=== PATIENT | male | born 1950 | race African-American/Black ===

== ENCOUNTER 2018-06-21 11:54 | Inpatient (IN) ==
[2018-06-21] MEDS ORDERED: DILAUDID IV ONE (14:27)
[2018-06-21 15:10] LABS: BASO# 0.02 X1000 (0.0-0.2); BASO% 0.2 % (0.0-0.8); EOS% 0.8 % (0.0-10.0); HEMATOCRIT 32.6 % (42.0-52.0); HEMOGLOBIN 10.2 g/dL (14.0-18.0); IMM GRAN# 0.07 X1000 (0.0-0.04); IMM GRAN% 0.6 % (0.0-0.5); LYMPH# 0.69 X1000 (1.2-3.4); LYMPH% 5.6 % (20.5-51.1); MCH 22.8 PG (27-31); MCHC 31.3 g/dL (33-37); MCV 72.8 FL (81-99); MONO# 1.31 X1000 (0.11-0.59); MONO% 10.6 % (1.7-9.3); MPV 8.4 FL (7.4-10.4); NEUT# 10.15 X1000 (1.4-6.5); NEUT% 82.2 % (42.2-75.2); PLT 429 X1000 (130-400); RBC 4.48 XMIL (4.7-6.1); WBC 12.34 X1000 (4.8-10.8)
[2018-06-21 15:40] LABS: ALB/GLOB RATIO 0.8; ALBUMIN 3.4 g/dL (3.5-5.0); CALCIUM 9.1 mg/dL (8.8-10.2); CREATININE 1.9 mg/dL (0.7-1.2); TOTAL BILIRUBIN 0.36 mg/dL (0.20-1.00); TOTAL PROTEIN 7.8 g/dL (6.3-8.3)
[2018-06-21 15:43] LABS: POTASSIUM 6.8 mmol/L (3.5-5.1)
[2018-06-21 15:56] LABS: URINE SOURCE CLEAN CATCH
[2018-06-21] MEDS ORDERED: CALCIUM CHLORIDE 1 GM in NS 100 ML IV ONE (16:10)
[2018-06-21] MEDS ORDERED: D50W SYRINGE IV ONE ×2 (16:11→16:45)
[2018-06-21] MEDS ORDERED: SODIUM BICARBONATE 8.4% IV ONE (16:11)
[2018-06-21 16:12] LABS: BILIRUBIN URINE NEGATIVE (NEGATIVE); BLOOD URINE MODERATE (NEGATIVE); COLOR ORANGE; GLUCOSE URINE NEGATIVE (NEGATIVE); KETONE URINE NEGATIVE (NEGATIVE); LEUKOCYTES URINE LARGE (NEGATIVE); NITRITE URINE NEGATIVE (NEGATIVE); PROTEIN URINE 300 mg/dL (NEGATIVE); TURBIDITY URINE TURBID (CLEAR); UROBILINOGEN URINE NORMAL (NORMAL)
[2018-06-21] MEDS ORDERED: HUMULIN R IV ONE (16:12)
[2018-06-21 16:20] LABS: URINE BACTERIA 4+ /HPF; URINE RBC TNTC /HPF (<10); URINE WBC TNTC /HPF (<10)
[2018-06-21 16:25] LABS: UR EPITHELIAL CELLS <10 /HPF (<10)
[2018-06-21 16:29] LABS: URINE CASTS NONE SEEN; URINE CRYSTALS NONE SEEN; URINE YEAST NONE SEEN
--- NOTE | 2018-06-21 17:04 | Diag Imaging Result Doc PS360 ---
EXAM: CHEST-1 VIEW HISTORY: sepsis protocol TECHNIQUE: Chest single view COMPARISON: 01/16/2018 FINDINGS: Poor inspiratory effort. The patient is rotated to the right. There is a right portacatheter. No consolidation. No pleural effusions identified. IMPRESSION: Negative exam. Electronically signed by Emmanuel Pak 06/21/2018 5:02 PM
[2018-06-21 17:12] LABS: POTASSIUM 7.2 mmol/L (3.5-5.1)
[2018-06-21 17:20] LABS: INR 1.01; PROTIME 14.1 Seconds (11.0-16.0)
[2018-06-21 17:21] LABS: PTT 39.1 Seconds (22.3-41.8)
[2018-06-21] MEDS ORDERED: MAXIPIME 2 GM in NS 100 ML IV ONE (17:31)
[2018-06-21] MEDS ORDERED: KAYEXALATE PO ONE (17:44)
--- NOTE | 2018-06-21 18:12 | PROVIDER DOCUMENTATION ---
This chart was entered by Lashon Love Scribe, acting as scribe for Ld Pratt MD. HPI-General Adult - General Chief Complaint: Generalized Pain Stated Complaint: ABD PAIN Time Seen by Provider: 06/21/18 13:56 Source: patient, family Allergies/Adverse Reactions: Patient Allergies Allergy/AdvReac Type Severity Reaction Status Date / Time levofloxacin [From Levaquin] Allergy SWELLING Verified 01/16/18 14:06 Home Medications: Home Medication List Medication Instructions Recorded Confirmed Last Taken Type Atorvastatin Calcium [Lipitor] 20 mg PO QHS 02/10/15 01/22/18 09/25/16 20:00 History ENALApril [Vasotec] 10 mg PO DAILY 02/10/15 01/22/18 09/26/16 08:00 History Enzalutamide [Xtandi] 80 mg PO BID 02/10/15 01/22/18 03/05/15 21:00 History Venlafaxine [Effexor] 75 mg PO DAILY 02/10/15 01/22/18 09/26/16 08:00 History Sitagliptin [Januvia] 100 mg PO DAILY 09/26/16 01/22/18 09/26/16 08:00 History Amlodipine Besylate [Norvasc] 5 mg PO DAILY 01/22/18 01/22/18 Unknown History Clonidine [Catapres] 0.2 mg PO BID 01/22/18 01/22/18 Unknown History Gabapentin 300 mg PO BID 01/22/18 01/22/18 Unknown History - History of Present Illness -Gen Adult Nature of Presenting Problems: 68 yobm presents to the ed with c/o pain and weakness in BLE, back, hips and abdomen. pt sts has been unable to ambulate for 1 week. pt has difficulty moving BLE. pt sts movemennt makes pain worse. pt does have prostate cancer with mets Location of Pain/Injury: reports: abdomen, back, lower extremity Quality of Pain: reports: aching Severity: reports: moderate Onset/Duration: reports: 1 week ago Timing: reports: still present, constant Context/Activities at Onset: reports: light activity Modifying Factors: improves with: nothing Associated Symptoms: reports: back/neck pain, joint pain, malaise, weakness, trouble walking. denies: fever/chills, nausea, shortness of breath Similar Symptoms Previously?: Yes Recently seen or treated by another doctor?: Yes Review of Systems - Adult - REVIEW OF SYSTEMS - ADULT Constitutional: denies: chills, fever Eyes: reports: no symptoms reported Ears, Nose, Mouth & Throat: reports: no symptoms reported Cardiovascular: denies: chest pain, palpitations Respiratory: reports: no symptoms reported Gastrointestinal: reports: abdominal pain. denies: diarrhea, nausea, vomiting Genitourinary: reports: no symptoms reported Musculoskeletal: reports: see HPI, back pain, joint pain, muscle weakness. denies: neck pain Integumentary: reports: no symptoms reported Neurological: denies: dizziness/vertigo, headache/migraines Psychiatric: reports: no symptoms reported Endocrine: reports: no symptoms reported Hematologic/Lymphatic: reports: no symptoms reported Allergic/Immunologic: reports: no symptoms reported All Other Systems: Reviewed and Negative Past History - Adult - PAST MEDICAL HISTORY-ADULT Review of Records: reports: Nursing Assessment Review, Medications Reviewed Major Childhood Illnesses: reports: denies history Cardiovascular: reports: HTN Respiratory: reports: sleep apnea Gastrointestinal: reports: cancer (prostate) Genitourinary: reports: cancer (Left Kidney), dialysis, prostate cancer Musculoskeletal: reports: neck/back injury, spinal fracture Neurological: reports: denies history Psychiatric: reports: denies history Endocrine/Immune: reports: Diabetes Diabetes Type: Type 2 Other Conditions: reports: denies history - PRIOR SURGERIES/PROCEDURES Surgical/Procedure History: reports: recent surgery (Left nephrectomy), joint replacement (Total hip) - PRIOR HOSPITALIZATIONS Prior Hospitalizations: reports: for other non-related - IMMUNIZATION STATUS Childhood Immunizations: See Nurse Assessment Flu Vaccine: See Nurse Assessment - FAMILY HISTORY Family History: reviewed, not pertinent - SOCIAL HISTORY Smoking: denies Substance Use: denies Living Situation: family Physical Exam-General - PHYSICAL EXAM-ADULT Initial Vital Signs Reviewed: Yes - CONSTITUTIONAL General Appearance: appears well, alert, no apparent distress, obese - EYES Eyes: PERRL/EOMI, pink conjunctivae - HEAD, EARS, NOSE, MOUTH & THROAT HENMT: moist mucous membranes, normal ENT inspection - NECK Neck: non-tender, full range of motion, supple, normal inspection - RESPIRATORY Respiratory: chest non-tender, lungs clear, normal breath sounds - CARDIOVASCULAR Cardiovascular: normal peripheral pulses, regular rate, rhythm - GASTROINTESTINAL (ABDOMEN) Abdominal Exam: normal bowel sounds, non tender, soft, no organomegaly, no pulsatile mass - LYMPHATIC Lymphatic: no adenopathy - MUSCULOSKELETAL Back Exam: normal inspection, no CVA tenderness, no vertebral tenderness Extremity: normal capillary refill, pelvis stable. negative: normal range of motion (BLE weakness), normal gait (pt unable to ambulate for 1 week) - SKIN Integumentary: normal color, normal turgor, warm/dry - NEUROLOGIC Neurologic: abnormal gait, motor weakness (BLE) - PSYCHIATRIC Psych/Mental Status: normal mood/affect, normal thought content, normal thought process, oriented x 3 Progress - PLAN OF CARE/RESULTS Progress/Plan/Lab Results: Vital Signs - 8 hr 06/21/18 12:21 06/21/18 13:27 06/21/18 14:02 Temperature 97.6 F Pulse Rate 87 87 85 Respiratory Rate 18 22 22 Blood Pressure 106/74 105/77 124/81 O2 Sat by Pulse Oximetry 100 97 96 Orders Category Date Time Status OK to use Port-A-Cath ORDERED Care 06/21/18 14:14 Active Result Diagrams: 06/21/18 14:42 06/21/18 16:26 - REASSESSMENT Reassessment #1 Time Reassessed: 15:49 (dr at bedside) Status: unchanged Reassessment #2 Time Reassessed: 17:45 Status: improving (pt has critical hyperkalemia w/ creat 1.9 (adm w/ Cr 5.0 last Jan); tolerating emergency rx well. also has UTI: will intitiate Rx w/ Cefepime (chosen by Dr. Cherry w/ same problem last Jan.). will consult Dr. Vazquez for adm.) - XRAY 1 XRAY: Bilateral XRAY Study: Chest Impression: See EMR Report (EXAM: CHEST-1 VIEW HISTORY: sepsis protocol TECHNIQUE: Chest single view COMPARISON: 01/16/2018 FINDINGS: Poor inspirat ory effort. The patient is rotated to the right. There is a right portacatheter. No consolidation. No pleural effusions identified. IMPRESSION: Negative exam. Electronically signed by Emmanuel Pak 06/21/2018 5:02 PM 06/21/18 7836 Interpreting Physician: Emmanuel Pak MD Dictated Date/Time: 06/21/18 896 cc: Ld Pratt MD; Ronan Vazquez MD) - CONSULTS/PCP/HOSPITALIST Notification #1 *Consult/PCP/Hospitalist*: dr davis Time Discussed: 17:43 Consult Disposition: Admit Departure - Departure Date of Disposition Decision: 06/21/18 Time of Disposition Decision: 17:50 DIAGNOSIS: Acute hyperkalemia, UTI (urinary tract infection) Disposition: ADMITTED INPATIENT 09 Certified Medical Emergency: Emergent Condition: Critical Referrals and Follow-Ups: Ronan Vazquez MD [Primary Care Provider] - - Critical Care Note This patient required my direct & personal management of CC.: Yes Total Time (mins): 40 Critical Care Statement: This patient required my direct personal management to treat or rule out processes, the absence of which, could potentiallly result in sudden, clinically significant life or limb threatening deterioration. Attestation - Physician/ DARYN Attestation Patient care was provided by Advanced Practice Provider:: No The physician spent face to face time with patient:: Yes Advanced Practice Provider documentation review:: Supervising physician onsite and consulted in the evaluation and care of this patient. The physician did have a face to face encounter with the patient. This chart was documented by the indicated scribe, (Lashon Love Scribe) and accurately reflects the services I performed and decisions made by me, Ld Pratt MD, as attested by the provider's signature.
--- NOTE | 2018-06-21 20:08 | HISTORY AND PHYSICAL ---
CHIEF COMPLAINT: Generalized weakness and pain. HISTORY OF PRESENT ILLNESS: A 68-year-old patient of Dr. Vazquez came to the emergency room for evaluation of weakness and generalized pain going on for 2 days. The pain was moderate in intensity. The patient was feeling weak all over, mainly in the leg, also some in the arm. The patient did have some chills, low-grade fever. Patient evaluated in the emergency room, found to have hyperkalemia, acute kidney injury and also evidence of UTI, and we decided to admit the patient for further care. The patient is very vague and poor historian. The patient is usually bed bound, and he does go to his recliner. The patient denied any sore throat. No unusual cough, expectoration, or hemoptysis. No typical chest pain, palpitations, orthopnea or PND. No abdominal pain, nausea, vomiting. The patient vomited once a few days ago. Denied any diarrhea, blood or mucus in the stool. The patient did have mild dysuria but no gross hematuria, pain in the leg. The patient does have minimal swelling, weakness in the left leg much more than the right, which is chronic. No heat or cold intolerance. No further history available at this time. ALLERGIES: Levaquin. PAST MEDICAL HISTORY: Significant for patient has only 1 kidney, chronic kidney disease stage 3, hypertension, prostate cancer with metastasis, NIDDM, sleep apnea, anemia of chronic disease, history of hyperkalemia. PAST SURGICAL HISTORY: Status post left nephrectomy. The patient had a port placement. PERSONAL HISTORY: Patient is . Lives with the . Denied alcohol or substance abuse. Needs minimal assistance in activities of daily living. FAMILY HISTORY: Significant for hypertension, NIDDM. REVIEW OF SYSTEMS: As per HPI. HOME MEDICATIONS: Include Norvasc, Lipitor, clonidine, Vasotec, Xtandi, Neurontin, Januvia, Effexor. PHYSICAL EXAMINATION: GENERAL: Elderly black gentleman, morbidly obese in no acute distress. VITAL SIGNS: Blood pressure was 106/74, pulse 87, respirations 18, temperature 97.6 degrees. SKIN: Normal turgor. HEAD: Atraumatic, normocephalic. [place] conjunctivae. Anicteric sclerae. Extraocular muscle movement normal. Fundus cannot be penetrated. Good oral hygiene. No tonsillopharyngeal congestion or exudate. Ears and nose benign. NECK: Supple. No JVD, thyromegaly or lymphadenopathy. CHEST: Bibasilar crepitation. No rales. CARDIOVASCULAR: S1 and S2 heard, 2/6 systolic murmur at the apex. No gallop or thrill. ABDOMEN: Soft, globular. Bowel sounds present. Mild tenderness hypogastric area. No guarding or rigidity. EXTREMITIES: No cyanosis, clubbing. No acute DVT. CENTRAL NERVOUS SYSTEM: Alert, awake. Answering questions fair. Able to move all 4 limbs. Patient does have some weakness both the legs, much more on the left leg than the right which is chronic. LABORATORY DATA: Revealed WBC count 12.34, hemoglobin 10.2, hematocrit 32.6, platelet count 429,000, sodium 131, potassium 7.2, BUN 42, creatinine 1.9, alkaline phosphatase 426. Urinalysis did reveal too numerous to count WBC and RBC, 4+ bacteria. DIAGNOSTIC DATA: The patient's chest x-ray revealed poor inspiratory effort. It was rotated film. IMPRESSION AND PLAN: Patient admitted with generalized pain found to have urinary tract infection, acute kidney injury, hyperkalemia, history of hypertension, hyperlipidemia, morbid obesity, hyponatremia, history of sleep apnea. Patient had only 1 kidney. The patient is acutely ill. We are going to treat hyperkalemia, give him Kayexalate. Recheck blood work. Close observation. IV antibiotics. Overall plan discussed with patient's family and patient. They are in agreement. cc: Alexander Andrade MD
[2018-06-21] MEDS ORDERED: CATAPRES PO PRN (21:06)
[2018-06-21] MEDS ORDERED: NS 1,000 ML IV ONE (21:08)
[2018-06-21] MEDS: NORCO-7.5 PO PRN (21:22)
[2018-06-21] MEDS: MAXIPIME 1 GM in NS 50 ML IV SCH (21:24)
[2018-06-22] MEDS ORDERED: KAYEXALATE PO ONE ×2 (01:00→12:02)
[2018-06-22 01:08] LABS: CALCIUM 9.4 mg/dL (8.8-10.2); CREATININE 2.1 mg/dL (0.7-1.2); POTASSIUM 6.2 mmol/L (3.5-5.1)
[2018-06-22] MEDS: NORCO-7.5 PO PRN ×3 (01:23→17:00)
--- NOTE | 2018-06-22 07:25 | Diag Imaging Result Doc PS360 ---
EXAM: CHEST-1 VIEW INDICATION: sob TECHNIQUE: One view COMPARISON: 06/21/2018 FINDINGS: The right chest port is in stable position. The lungs are grossly clear. There is no discrete pleural fluid collection or pneumothorax. The cardiomediastinal silhouette and central vasculature are grossly unremarkable. IMPRESSION: No evidence of acute pathology by plain radiograph. Electronically signed by Vicente Bragg 06/22/2018 7:23 AM
--- NOTE | 2018-06-22 07:25 | EKG Report ---
Test Performed on : 06/21/2018 5:21:59 PM Test Reason : CP Blood Pressure : / mmHG Vent. Rate : 094 BPM Atrial Rate : 094 BPM P-R Int : 160 ms QRS Dur : 080 ms QT Int : 346 ms P-R-T Axes : 025 -26 036 degrees QTc Int : 432 ms Normal sinus rhythm. Normal ECG When compared with ECG of 02-SEP-2016 15:44, Nonspecific T wave abnormality no longer evident in Anterolateral leads Unconfirmed Result
[2018-06-22 07:44] LABS: BASO# 0.01 X1000 (0.0-0.2); BASO% 0.1 % (0.0-0.8); EOS# 0.11 X1000 (0.0-0.7); EOS% 1.1 % (0.0-10.0); HEMATOCRIT 31.6 % (42.0-52.0); HEMOGLOBIN 9.8 g/dL (14.0-18.0); IMM GRAN# 0.04 X1000 (0.0-0.04); IMM GRAN% 0.4 % (0.0-0.5); LYMPH# 0.56 X1000 (1.2-3.4); LYMPH% 5.3 % (20.5-51.1); MCH 22.9 PG (27-31); MCV 73.8 FL (81-99); MONO% 17.2 % (1.7-9.3); MPV 9.2 FL (7.4-10.4); NEUT# 7.95 X1000 (1.4-6.5); NEUT% 75.9 % (42.2-75.2); PLT 388 X1000 (130-400); RBC 4.28 XMIL (4.7-6.1); RDW 15.7 % (11.5-14.5); WBC 10.47 X1000 (4.8-10.8)
[2018-06-22 07:48] LABS: ALB/GLOB RATIO 0.7; ALBUMIN 2.9 g/dL (3.5-5.0); CALCIUM 9.1 mg/dL (8.8-10.2); CREATININE 2.1 mg/dL (0.7-1.2); MAGNESIUM 1.9 mg/dL (1.5-2.7); PHOSPHORUS 4.9 mg/dL (2.7-4.5); POTASSIUM 5.8 mmol/L (3.5-5.1); TOTAL BILIRUBIN 0.44 mg/dL (0.20-1.00); TOTAL PROTEIN 7.2 g/dL (6.3-8.3)
[2018-06-22 08:00] LABS: HEMOGLOBIN A1C 6.4 % (4.8-6.0)
[2018-06-22] MEDS: NORVASC PO SCH (09:20)
[2018-06-22] MEDS: CATAPRES PO SCH ×2 (09:20→21:29)
[2018-06-22] MEDS: NEURONTIN PO SCH ×2 (09:20→21:29)
[2018-06-22] MEDS: PROTONIX IV SCH (09:21)
[2018-06-22] MEDS: SODIUM CHLORIDE 0.9% INJ SCH (09:21)
[2018-06-22] MEDS: LOVENOX SUBQ SCH (09:21)
[2018-06-22] MEDS: MAXIPIME 1 GM in NS 50 ML IV SCH ×2 (09:21→21:29)
--- NOTE | 2018-06-22 13:50 | PROGRESS NOTE ---
DATE: 06/22/2018 SUBJECTIVE: Mr. Hogan is a 68-year-old gentleman, was admitted with generalized muscle pains. He had severe hypokalemia. He has renal failure. He had nephrectomy on 1 side and he has metastatic prostate cancer. 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 He also has a urinary tract infection. At present, his CBC shows a white count has come down to 10.47, hemoglobin is 9.8. potassium which was 6.2 has come down to 5.8 now. BUN is 38, creatinine 2.1, plasma lactate level 0.9. His urine has been cultured. He is on cefepime at the present time IV and IV normal saline. He was given Kayexalate yesterday. We will give 15 g of Kayexalate by mouth today. Continue the current management. cc: MD Alexander Galindo MD
[2018-06-23 06:19] LABS: BASO# 0.01 X1000 (0.0-0.2); BASO% 0.1 % (0.0-0.8); EOS# 0.18 X1000 (0.0-0.7); EOS% 1.9 % (0.0-10.0); HEMATOCRIT 30.2 % (42.0-52.0); HEMOGLOBIN 9.3 g/dL (14.0-18.0); LYMPH# 0.72 X1000 (1.2-3.4); LYMPH% 7.6 % (20.5-51.1); MCH 23.1 PG (27-31); MCHC 30.8 g/dL (33-37); MCV 74.9 FL (81-99); MONO# 1.66 X1000 (0.11-0.59); MONO% 17.6 % (1.7-9.3); MPV 8.7 FL (7.4-10.4); NEUT# 6.85 X1000 (1.4-6.5); NEUT% 72.8 % (42.2-75.2); PLT 315 X1000 (130-400); RBC 4.03 XMIL (4.7-6.1); RDW 15.7 % (11.5-14.5); WBC 9.42 X1000 (4.8-10.8)
[2018-06-23 06:38] LABS: CALCIUM 9.2 mg/dL (8.8-10.2); CREATININE 1.9 mg/dL (0.7-1.2); POTASSIUM 5.1 mmol/L (3.5-5.1)
[2018-06-23] MEDS: MAXIPIME 1 GM in NS 50 ML IV SCH ×2 (09:27→21:03)
[2018-06-23] MEDS: SODIUM CHLORIDE 0.9% INJ SCH (09:27)
[2018-06-23] MEDS: PROTONIX IV SCH (09:27)
[2018-06-23] MEDS: LOVENOX SUBQ SCH (09:27)
[2018-06-23] MEDS: CATAPRES PO SCH ×2 (09:28→21:03)
[2018-06-23] MEDS: NEURONTIN PO SCH ×2 (09:28→21:03)
[2018-06-23] MEDS: NORVASC PO SCH (09:28)
[2018-06-23] MEDS: NORCO-7.5 PO PRN ×2 (15:17→23:33)
--- NOTE | 2018-06-23 19:41 | PROGRESS NOTE ---
DATE: 06/23/2018 VITAL SIGNS: Stable with temperature 98 degrees, heart rate 81, respirations 21, blood pressure 130/80, O2 saturation 98%. LABORATORY: Sodium 142, potassium 5.1, BUN 37, creatinine 1.9, glucose 104, calcium 9.2. The patient is feeling better except for some back pain. He is on [place] for this. He has metastatic prostate carcinoma and has had difficulty ambulating, although he is able to take 30 or 40 steps at home without stopping to rest. He is being treated with cefepime for urinary tract infection. PLAN: Transfer to the floor and begin physical therapy with assistance ambulating. cc: MD Alexander Herrera MD
[2018-06-24] MEDS: LOVENOX SUBQ SCH (08:53)
[2018-06-24] MEDS: CATAPRES PO SCH ×2 (08:53→20:20)
[2018-06-24] MEDS: NEURONTIN PO SCH ×2 (08:53→20:20)
[2018-06-24] MEDS: PROTONIX IV SCH (08:53)
[2018-06-24] MEDS: NORVASC PO SCH (08:53)
[2018-06-24] MEDS: MAXIPIME 1 GM in NS 50 ML IV SCH ×2 (08:54→20:20)
[2018-06-24] MEDS: SODIUM CHLORIDE 0.9% INJ SCH (08:54)
[2018-06-24] MEDS: NORCO-7.5 PO PRN ×2 (09:08→19:28)
--- NOTE | 2018-06-24 15:24 | PROGRESS NOTE ---
DATE: 06/24/2018 OBJECTIVE: Vital Signs: Stable with temperature 98 degrees, heart rate 66, respirations 19, blood pressure 120/55. O2 saturation on nasal oxygen 100%. SUBJECTIVE: The patient is feeling better except for low back pain. Glucose has been relatively stable, 132 yesterday afternoon. He is receiving cefepime for urinary tract infection. There is history of metastatic prostate cancer with chronic back pain. PLAN: Physical therapy for progressive ambulation. cc: MD Alexander Herrera MD
[2018-06-24] MEDS ORDERED: DULCOLAX PO ONE (19:45)
[2018-06-24] MEDS: MIRALAX PO SCH (20:20)
[2018-06-25] MEDS: NORVASC PO SCH (09:24)
[2018-06-25] MEDS: NEURONTIN PO SCH ×2 (09:24→22:51)
[2018-06-25] MEDS: PROTONIX IV SCH (09:25)
[2018-06-25] MEDS: CATAPRES PO SCH ×2 (09:25→22:51)
[2018-06-25] MEDS: LOVENOX SUBQ SCH (09:25)
[2018-06-25] MEDS: SODIUM CHLORIDE 0.9% INJ SCH (09:25)
[2018-06-25] MEDS: NORCO-7.5 PO PRN ×2 (09:47→22:51)
[2018-06-25] MEDS: MAXIPIME 1 GM in NS 50 ML IV SCH ×2 (09:48→22:53)
[2018-06-25] MEDS: MIRALAX PO SCH (09:49)
[2018-06-26] MEDS: NORCO-7.5 PO PRN ×3 (05:26→21:16)
[2018-06-26] MEDS: MAXIPIME 1 GM in NS 50 ML IV SCH ×2 (08:05→21:17)
[2018-06-26] MEDS: NEURONTIN PO SCH ×2 (08:05→21:16)
[2018-06-26] MEDS: PROTONIX IV SCH (08:05)
[2018-06-26] MEDS: LOVENOX SUBQ SCH (08:06)
[2018-06-26] MEDS: NORVASC PO SCH (08:06)
[2018-06-26] MEDS: MIRALAX PO SCH (08:06)
[2018-06-26] MEDS: CATAPRES PO SCH ×2 (08:06→21:16)
--- NOTE | 2018-06-26 10:36 | PROGRESS NOTE ---
DATE: 06/26/2018 Mr. Hogan is getting IV cefepime. He has Klebsiella pneumoniae. He has pneumoniae UTI. His blood cultures so far have been negative. Vital signs are stable. I am going to repeat his chem 7 again tomorrow. We will continue any antibiotics for 1 or 2 more days, and then probably discharge him. The physical therapy has been started. cc: MD Alexander Galindo MD
[2018-06-27 07:17] LABS: CALCIUM 9.5 mg/dL (8.8-10.2); CREATININE 1.6 mg/dL (0.7-1.2); POTASSIUM 5.8 mmol/L (3.5-5.1)
[2018-06-27] MEDS: LOVENOX SUBQ SCH (08:13)
[2018-06-27] MEDS: MAXIPIME 1 GM in NS 50 ML IV SCH ×2 (08:13→20:38)
[2018-06-27] MEDS: MIRALAX PO SCH (08:13)
[2018-06-27] MEDS: NORVASC PO SCH (08:14)
[2018-06-27] MEDS: NEURONTIN PO SCH ×2 (08:14→20:41)
[2018-06-27] MEDS: PROTONIX PO SCH (08:14)
[2018-06-27] MEDS: CATAPRES PO SCH ×2 (08:14→20:42)
[2018-06-27] MEDS: NORCO-7.5 PO PRN ×3 (08:28→22:54)
[2018-06-27] MEDS ORDERED: KAYEXALATE PO ONE (08:35)
--- NOTE | 2018-06-27 09:45 | PROGRESS NOTE ---
DATE: 06/27/2018 SUBJECTIVE: Mr. Hogan is recovering from a UTI. His BUN is 36, creatinine 1.6. Potassium has gone back up to 3.6. We are going to give him Kayexalate this morning. We will get a Nephrology consult with Dr. Rob. Overall condition is unchanged. cc: MD Alexander Galindo MD
[2018-06-28 07:30] LABS: CALCIUM 8.8 mg/dL (8.8-10.2); CREATININE 1.7 mg/dL (0.7-1.2)
[2018-06-28 07:46] LABS: POTASSIUM 6.4 mmol/L (3.5-5.1)
[2018-06-28] MEDS ORDERED: KAYEXALATE PO ONE (07:52)
--- NOTE | 2018-06-28 09:21 | PROGRESS NOTE ---
DATE: 06/28/2018 SUBJECTIVE: His potassium went up to 6.4. His BUN is 40, creatinine 1.7. He is feeling fairly well. He has renal failure with recurrent hyperkalemia. PLAN: We will give him Kayexalate today. -5 cc: MD Alexander Galindo MD
[2018-06-28] MEDS: NEURONTIN PO SCH ×2 (09:30→21:22)
[2018-06-28] MEDS: PROTONIX PO SCH (09:30)
[2018-06-28] MEDS: NORCO-7.5 PO PRN ×2 (09:30→17:33)
[2018-06-28] MEDS: LOVENOX SUBQ SCH (09:30)
[2018-06-28] MEDS: NORVASC PO SCH (09:30)
[2018-06-28] MEDS: MIRALAX PO SCH (09:31)
[2018-06-28] MEDS: CATAPRES PO SCH ×3 (09:31→21:24)
[2018-06-28] MEDS: MAXIPIME 1 GM in NS 50 ML IV SCH ×2 (09:31→21:20)
--- NOTE | 2018-06-28 10:02 | NEPHROLOGY CONSULTATION ---
DATE: 06/28/2018 REASON FOR ADMISSION: Weakness, pain, hyperkalemia. REASON FOR CONSULTATION: Acute on chronic kidney disease, hyperkalemia. HISTORY OF PRESENT ILLNESS: This is a 68-year-old gentleman with chronic kidney disease stage 3 and a baseline creatinine of 1.3 secondary to a solitary kidney. The patient came into the emergency room secondary to weakness and generalized pain. Patient had evidence of a UTI and was found to have hyperkalemia during his workup. He was admitted to the hospital and treated medically for his potassium. Initially, potassium was 6.8 and 7.2. It rapidly improved with medication therapy down to 5.8 and two days ago, 5.1. Yesterday, it was back up to 5.8. We have been asked to see him to assist with management. The patient denies any current nausea or vomiting. He does continue to complain of weakness. The patient had been in therapy and was able to ambulate perhaps up to 50 steps. He states he is no longer able to do that and pretty much goes from bed to chair as far as any mobility. He denies any bloody stools. PAST MEDICAL HISTORY: Solitary kidney, chronic kidney disease stage 3 (again, baseline creatinine 1.3 to 1.4), hypertension, history of prostate cancer with metastasis, noninsulin-dependent diabetes, sleep apnea, anemia of chronic disease, and a history of hyperkalemia. PAST SURGICAL HISTORY: Left nephrectomy and a Port-A-Cath placement. ALLERGIES: Levaquin. HOME MEDICATIONS: Listed as Norvasc, Lipitor, clonidine, Vasotec, Xtandi, Neurontin, Januvia, Effexor. FAMILY HISTORY: Hypertension and diabetes. SOCIAL HISTORY: He is and lives with his . No ETOH, tobacco, or illicit drug use. REVIEW OF SYSTEMS: Continues with weakness. No nausea or vomiting. PHYSICAL EXAMINATION: Vital Signs: Temperature 97.3 degrees, pulse 81, respiratory rate 20, blood pressure 116/57. Intake 640 mL, output 575 mL. General: This is an elderly gentleman resting in bed. He is awake and alert. He does not appear in any distress. HEENT: Normocephalic, atraumatic. Conjunctivae are pink. His oral mucosa is moist. Neck: Supple. There is no JVD noted. Cardiovascular: Reveals regular rate and rhythm. Systolic murmur. Pulmonary: He is clear bilaterally. No increased work of breathing. Abdomen: Obese, soft. Positive bowel sounds. : Not inspected. He is voiding. Extremities: No clubbing, cyanosis. No edema is noted. Integumentary: Skin is warm and dry. LAB DATA: His labs as of June 27 indicated a sodium of 136, potassium 5.8, chloride 101, CO2 26, BUN 36, creatinine 1.6, calcium 9.5, his last magnesium was on the and it was 1.9. ASSESSMENT AND PLAN: Hyperkalemia in the setting of decreased kidney mass. The patient does have a history of hyperkalemia. He is on no home medications that would likely exacerbate this. I did discuss with him some of the most common food issues. We will wait for his labs to post today before making any decision to treat with therapy such as Veltassa. Once we also have labs this morning, we will determine if we need to check urine potassium and workup from that point. Renal function is stable and close to his baseline. Dictated by CAROL Velez for Virgilio Rob MD Face to face encounter, data reviewed, discussed with Judie Rossi on 06/28/18. I agree with the above assessment and plan of care. cc: MD Alexander Neumann MD MTDD
[2018-06-28] MEDS: VELTASSA PO SCH (16:19)
[2018-06-29] MEDS: NORCO-7.5 PO PRN ×3 (00:14→18:11)
[2018-06-29 07:42] LABS: ALBUMIN 3.2 g/dL (3.5-5.0); CALCIUM 9.5 mg/dL (8.8-10.2); CREATININE 1.6 mg/dL (0.7-1.2); PHOSPHORUS 3.9 mg/dL (2.7-4.5); POTASSIUM 4.9 mmol/L (3.5-5.1)
[2018-06-29] MEDS: NEURONTIN PO SCH ×2 (09:37→20:43)
[2018-06-29] MEDS: MIRALAX PO SCH (09:37)
[2018-06-29] MEDS: CATAPRES PO SCH ×2 (09:37→20:43)
[2018-06-29] MEDS: LOVENOX SUBQ SCH (09:37)
[2018-06-29] MEDS: MAXIPIME 1 GM in NS 50 ML IV SCH ×2 (09:37→20:43)
[2018-06-29] MEDS: PROTONIX PO SCH (09:37)
[2018-06-29] MEDS: NORVASC PO SCH (09:37)
[2018-06-29] MEDS: VELTASSA PO SCH (09:38)
--- NOTE | 2018-06-29 11:26 | PROGRESS NOTE ---
DATE: 06/29/2018 Mr. Hogan potassium is 4.8 today. We are going to repeat that tomorrow. He feels quite well. He is getting IV antibiotics for urinary tract infection. Overall condition is otherwise unchanged. Lungs are clear. Heart sounds are normal. We will continue with the current management. cc: MD Alexander Galindo MD
--- NOTE | 2018-06-29 14:34 | NEPHROLOGY PROGRESS NOTE ---
DATE: 06/29/2018 SUBJECTIVE: The patient is resting in bed. He states he has not gotten up yet. OBJECTIVE: Vital signs: Temperature 97.6, pulse 72, respiratory rate 18, blood pressure 123/61. Intake 1.4 L, output 1.1 L. General: Elderly gentleman resting in bed, in no acute distress. HEENT: Normocephalic and atraumatic. PERRL. Neck is supple. No JVD. Cardiovascular: Regular rate and rhythm with a systolic murmur. Pulmonary: Clear bilaterally. Abdomen: Obese and soft. Positive bowel sounds. : Voiding. Extremities: No cyanosis, clubbing or edema. Integumentary: Skin is warm and dry. DIAGNOSTIC DATA: Sodium 135, potassium 4.9, CO2 is 28, BUN is 37, creatinine 1.6. ASSESSMENT AND PLAN: Hyperkalemia in the setting of decreased renal mass. The patient is with a history of hyperkalemia. He was given a dose of Kayexalate yesterday. I also started him on Veltassa. However, we will change him over to [place] for his hyperkalemia. I will not dose today, as he has already received the Veltassa, and I will evaluate in the morning before we give him the Lokelma. His potassium has come down significantly with medical treatment. Again, urines are pending. Other possibilities for his hyperkalemia may be an occult GI bleed. We have requested that occult stool be checked. Dictated by CAROL Velez for Virgilio Rob MD Face to face encounter, data reviewed, discussed with Judie Rossi on 06/29/18. I agree with the above assessment and plan of care. cc: MD Alexander Neumann MD MTDD
[2018-06-30] MEDS: NORCO-7.5 PO PRN ×3 (02:49→19:22)
[2018-06-30 08:06] LABS: ALBUMIN 3.1 g/dL (3.5-5.0); CALCIUM 9.2 mg/dL (8.8-10.2); CREATININE 1.5 mg/dL (0.7-1.2); PHOSPHORUS 3.4 mg/dL (2.7-4.5); POTASSIUM 4.7 mmol/L (3.5-5.1)
[2018-06-30] MEDS ORDERED: LOKELMA POWDER PACKET PO SCH (09:00)
[2018-06-30] MEDS: MAXIPIME 1 GM in NS 50 ML IV SCH ×2 (10:00→22:28)
[2018-06-30] MEDS: CATAPRES PO SCH ×2 (10:00→22:27)
[2018-06-30] MEDS: NORVASC PO SCH (10:00)
[2018-06-30] MEDS: PROTONIX PO SCH (10:00)
[2018-06-30] MEDS: MIRALAX PO SCH (10:01)
[2018-06-30] MEDS: LOVENOX SUBQ SCH (10:01)
[2018-06-30] MEDS: NEURONTIN PO SCH ×2 (10:01→22:27)
--- NOTE | 2018-06-30 21:55 | NEPHROLOGY PROGRESS NOTE ---
DATE: 06/30/2018 SUBJECTIVE: Patient resting in bed. He has been up on the side of the bed with physical therapy. OBJECTIVE: Vital Signs: Temperature 97.4, pulse 61, respiratory rate 18, blood pressure 105/45. Intake 598 mL, output 200 mL plus multiple voids not measured. General: On exam, this is an elderly gentleman resting in bed. He is awake and alert. He is in no acute distress. HEENT: Normocephalic, atraumatic. Pupils are equal and reactive. Conjunctivae pink. Oral mucosa moist. Neck: Supple. There is no JVD. Cardiovascular: Regular rate and rhythm. Systolic murmur. Pulmonary: Clear bilaterally. Abdomen: Soft, with positive bowel sounds. : Voiding. Extremities: No clubbing, cyanosis, or edema. Integumentary: Skin is warm and dry. LABORATORY DATA: Potassium is 4.7. ASSESSMENT AND PLAN: Hypokalemia in the setting of decreased renal mass. The patient's potassium has continued to drop without additional medications today. I will hold the [email or web address]. From a renal perspective, he can be discharged home. Will see him in the office within 2 weeks and have labs drawn in 1 week. I did caution him regarding high potassium foods. He has been given a list previously and they do have that at home. Dictated by CAROL Velez for Virgilio Rob MD cc: MD Alexander Neumann MD
[2018-06-30] MEDS: LACTULOSE PO SCH (22:29)
--- NOTE | 2018-06-30 23:01 | PROGRESS NOTE ---
DATE: 06/30/2018 SUBJECTIVE: A 68-year-old male admitted to the hospital on 06/21 with generalized weakness and pain. The patient has chronic kidney disease, with acute kidney injury and hyperkalemia. Interval history was reviewed. The patient is not offering any complaints. Constipation. PAST MEDICAL HISTORY: Reviewed. PAST SURGICAL HISTORY: Reviewed. MEDICATIONS: Reviewed. ALLERGIES: Levaquin. OBJECTIVE: On examination, temperature is 97.9 degrees, pulse 63, blood pressure is 116/58, 2 L nasal cannula 100%. Heavyset. Chest is clear. Heart sounds are regular. Belly is soft, obese, and no peripheral edema. LABORATORY DATA: Sodium 137, potassium 4.7, BUN 35, creatinine 1.5, glucose 148, albumin 3.1. CBC: White cell count 9.4, hematocrit 30, platelets 315,000. Blood cultures are negative. Urine culture showed Klebsiella which is ESBL positive. ASSESSMENT AND PLAN: 1. Chronic kidney disease. Creatinine is stable. 2. Hyperkalemia, better. 3. Hypertension. Norvasc 5 mg daily, clonidine 0.2 p.o. b.i.d. 4. Deep venous thrombosis prophylaxis with Lovenox 30 mg daily. 5. Extended-spectrum beta-lactamase Klebsiella, on cefepime 1 g q.12. 6. Gastrointestinal prophylaxis with intravenous Protonix. 7. Constipation, on MiraLAX. It is not helping. We will give him lactulose. Level of documentation 35 minutes. cc: MD Alexander Booker MD
[2018-07-01] MEDS: NORCO-7.5 PO PRN ×3 (03:38→20:40)
[2018-07-01 07:43] LABS: CALCIUM 9.1 mg/dL (8.8-10.2); CREATININE 1.5 mg/dL (0.7-1.2); PHOSPHORUS 3.7 mg/dL (2.7-4.5); POTASSIUM 4.7 mmol/L (3.5-5.1)
[2018-07-01] MEDS: LACTULOSE PO SCH (08:45)
[2018-07-01] MEDS: NEURONTIN PO SCH ×2 (08:46→19:50)
[2018-07-01] MEDS: NORVASC PO SCH (08:46)
[2018-07-01] MEDS: MAXIPIME 1 GM in NS 50 ML IV SCH ×2 (08:46→19:50)
[2018-07-01] MEDS: LOVENOX SUBQ SCH (08:46)
[2018-07-01] MEDS: CATAPRES PO SCH ×2 (08:46→19:50)
[2018-07-01] MEDS: MIRALAX PO SCH (08:46)
[2018-07-01] MEDS: PROTONIX PO SCH (08:46)
--- NOTE | 2018-07-01 14:50 | PROGRESS NOTE ---
DATE: 07/01/2018 SUBJECTIVE: The patient is sleeping. No complaints. The nurses said he had some bowel movements. EXAMINATION: Vital Signs: Temperature is 97.9, pulse 63, blood pressure 110/56, 2 L nasal cannula 100%. General: Morbidly obese. Belly soft, obese, nontender. INVESTIGATIONS: Sodium 136, potassium 4.7, BUN 35, creatinine 1.5, glucose 56. Urine cultures are Klebsiella. Blood cultures were negative. ASSESSMENT AND PLAN: 1. Chronic kidney disease, stable. 2. Hyperkalemia, stable. 3. ESBL E coli and Klebsiella, on IV cefepime. 4. DVT prophylaxis with Lovenox. 5. GI prophylaxis with Protonix. 6. Constipation is getting better. Chronic pain on Neurontin. Blood pressure is stable on Norvasc and clonidine. Out of the bed with Physical Therapy and will follow up by Dr. Vazquez and history of prostate cancer, stable. LEVEL OF DOCUMENTATION: 25 minutes. cc: MD Alexander Booker MD
[2018-07-02] MEDS: NEURONTIN PO SCH ×2 (04:33→09:50)
[2018-07-02] MEDS: MAXIPIME 1 GM in NS 50 ML IV SCH ×2 (04:33→09:50)
[2018-07-02] MEDS: CATAPRES PO SCH ×2 (04:33→09:49)
[2018-07-02] MEDS: NORCO-7.5 PO PRN ×2 (04:56→13:35)
[2018-07-02 06:56] LABS: CALCIUM 9.3 mg/dL (8.8-10.2); CREATININE 1.7 mg/dL (0.7-1.2); PHOSPHORUS 3.3 mg/dL (2.7-4.5); POTASSIUM 5.1 mmol/L (3.5-5.1)
[2018-07-02] MEDS ORDERED: LOKELMA POWDER PACKET PO SCH (09:00)
[2018-07-02] MEDS: LOVENOX SUBQ SCH (09:50)
[2018-07-02] MEDS: NORVASC PO SCH (09:50)
[2018-07-02] MEDS: PROTONIX PO SCH (09:50)
[2018-07-02] MEDS: MIRALAX PO SCH (09:51)
[2018-07-02 13:05] VITALS: BP 116/57
--- NOTE | 2018-07-02 13:45 | DISCHARGE SUMMARY ---
ADMISSION DATE: 06/21/2018 DISCHARGE DATE: 07/02/2018 HISTORY OF PRESENT ILLNESS: Mr. Hogan, who is a 68-year-old, gentleman, was admitted with severe hyperkalemia. Potassium was almost 10. He had generalized weakness and bone pains. He has only one kidney and had severe hyperkalemia. He was admitted to the ICU. LABORATORY DATA: In the hospital, initial lab data showed white count of 12.34, repeat white count 9.42, hemoglobin went down from 10.2 to 9.3. INR was 1.01. His initial potassium when he came was 6.8, BUN was 42, creatinine 1.9, and potassium went to 7.2. HOSPITAL COURSE: He was given Kayexalate repeatedly and potassium was now in control. Urine shows too numerous WBCs and RBCs. His microbiology, urine culture grew Klebsiella pneumoniae sensitive to Levaquin. Blood cultures were negative. He had a nephrology consult. No other suggestion was made except to control the hyperkalemia, which was being done. He is very noncompliant about coming to the office and sometimes not compliant about medications. I explained to him about diet and the treatment for hyperkalemia, to avoid fresh fruits and vegetables, and fruit juices also. He is grossly obese and has a paraparesis because of metastatic prostate cancer to the dorsal spine. FINAL DIAGNOSES: 1. Severe hyperkalemia. 2. Klebsiella urinary tract infection. 3. Severe hypertension. 4. Metastatic prostate carcinoma. DISCHARGE INSTRUCTIONS: He will be seen in the office in about 7 to 10 days. He needs to make regular office visits. No prescription is given today. He is advised to stop the Vasotec. cc: MD Alexander Galindo MD
--- NOTE | 2018-07-02 14:12 | NEPHROLOGY PROGRESS NOTE ---
DATE: 07/02/2018 SUBJECTIVE: The patient is hoping to go home today. OBJECTIVE: Vital Signs: Temperature 99.6 degrees, pulse 66, respiratory rate 18, blood pressure 104/55. Intake and Output: Intake 410 mL. Output 450 mL. General: Elderly gentleman, who is sitting up in bed. Awake, alert, no acute distress. HEENT: Normocephalic, atraumatic. Conjunctivae pink. Oral mucosa moist. Neck: Supple. No JVD. Cardiovascular: Regular rate and rhythm with systolic murmur. Pulmonary: Clear bilaterally. Equal excursion. Abdomen: Soft. Positive bowel sounds. Genitourinary: Voiding. Extremities: No edema. Integumentary: Skin is warm and dry. LABORATORY DATA: Potassium 5.1, creatinine 1.7. Urine potassium 24-hour urine 54 mEq. ASSESSMENT AND PLAN: 1. Chronic kidney disease at baseline renal function. 2. Hyperkalemia in the setting of decreased renal mass. His potassium increased ever so slightly to 5.1. We will give a dose a of Lokelma. We will see him in the office in 2 weeks. We will have labs drawn in 1 week. It may be that the patient is going to require some chronic outpatient treatment. We will make that determination once we see him in follow-up. Dictated by CAROL Velez for Virgilio Rob MD cc: MD Alexander Neumann MD MTDD
--- NOTE | 2018-07-03 04:11 | PROGRESS NOTE ---
DATE: 07/02/2018 SUBJECTIVE: Mr. Bardales' potassium was 5.4. BUN continues to be around 39, creatinine 1.7 because of decreased renal mass. Stool occult blood was negative. Overall condition is stable. I am going to discharge him today. -9 cc: MD Alexander Galindo MD
== END 2018-07-02 14:06 | disposition home or self-care (01) | DRG 641 ==
LOC: ED 11:54 → ICU 20:39 → 3N 06-23 14:30
PROVIDERS: ADMIT Internal Medicine; ATTEND Internal Medicine
CPT/HCPCS: 71010; 71045; 80048; 80053; 80069; 81001; 81050; 82272; 82550; 82948; 83036; 83605; 83735; 84100; 84132; 84133; 84484; 85025; 85610; 85730; 87040; 87077; 87088; 87186; 93005; 94761; 96365; 96367; 96375; 97110; 97162; 97530; 99285; 99291; A9270; C9113; J0692; J1170; J1650; J7030; S0164; XXXXX

== ENCOUNTER 2018-09-08 15:56 | Inpatient (IN) ==
--- NOTE | 2018-09-08 16:35 | Diag Imaging Result Doc PS360 ---
EXAM: CHEST-1 VIEW HISTORY: ams TECHNIQUE: Chest single view COMPARISON: 06/22/2018 FINDINGS: Poor inspiratory effort. No change in the right subclavian portacatheter. Heart is mildly prominent. No pulmonary edema. No pneumonia. Pleural effusions identified. IMPRESSION: Mildly prominent heart. Electronically signed by Emmanuel Pak 09/08/2018 4:33 PM
[2018-09-08 16:45] LABS: BASO% 0.1 % (0.0-0.8); EOS% 0.7 % (0.0-10.0); HEMATOCRIT 27.9 % (42.0-52.0); HEMOGLOBIN 8.4 g/dL (14.0-18.0); IMM GRAN% 0.6 % (0.0-0.5); LYMPH# 0.35 X1000 (1.2-3.4); MCH 22.3 PG (27-31); MCHC 30.1 g/dL (33-37); MONO% 3.6 % (1.7-9.3); MPV 8.6 FL (7.4-10.4); NEUT# 10.71 X1000 (1.4-6.5); PLT 393 X1000 (130-400); RBC 3.77 XMIL (4.7-6.1); RDW 17.5 % (11.5-14.5); WBC 11.64 X1000 (4.8-10.8)
[2018-09-08 16:46] LABS: BASO# 0.01 X1000 (0.0-0.2); EOS# 0.08 X1000 (0.0-0.7); IMM GRAN# 0.07 X1000 (0.0-0.04); MONO# 0.42 X1000 (0.11-0.59)
[2018-09-08 16:50] LABS: INR 1.12; PROTIME 14.6 Seconds (11.0-16.0)
[2018-09-08 16:51] LABS: PTT 36.3 Seconds (22.3-41.8)
[2018-09-08 17:04] LABS: LYMPHS 4 % (21-51); MICROCYTOSIS 1+; MONO 4 % (1-9); SEGS 92 % (42-75)
--- NOTE | 2018-09-08 17:04 | PROVIDER DOCUMENTATION ---
This chart was entered by Vale Bragg Scribe, acting as scribe for Vishnu Estrada CRNP. HPI-General Adult - General Chief Complaint: STROKE ALERT Stated Complaint: AMS Time Seen by Provider: 09/08/18 16:05 Source: family, RN/MD Allergies/Adverse Reactions: Patient Allergies Allergy/AdvReac Type Severity Reaction Status Date / Time levofloxacin [From Levaquin] Allergy SWELLING Verified 09/08/18 16:15 Home Medications: Home Medication List Medication Instructions Recorded Confirmed Last Taken Type Atorvastatin Calcium [Lipitor] 20 mg PO QHS 02/10/15 09/08/18 09/25/16 20:00 History Enzalutamide [Xtandi] 80 mg PO BID 02/10/15 09/08/18 03/05/15 21:00 History Sitagliptin [Januvia] 100 mg PO DAILY 09/26/16 09/08/18 09/26/16 08:00 History Amlodipine Besylate [Norvasc] 5 mg PO DAILY 01/22/18 09/08/18 Unknown History Clonidine [Catapres] 0.2 mg PO BID 01/22/18 09/08/18 Unknown History Gabapentin 300 mg PO BID 01/22/18 09/08/18 Unknown History Amlodipine [Norvasc] 5 mg PO DAILY tab 07/02/18 Unknown Rx Gabapentin [Neurontin] 100 mg PO BID 09/08/18 09/08/18 Unknown History Sitagliptin Phosphate [Januvia] 100 mg PO DAILY 09/08/18 09/08/18 Unknown History - History of Present Illness -Gen Adult Nature of Presenting Problems: 68 yom presents to ed w/cc rn sts that sts pt is ams since 1430. began shaking and lost verbal communication at that time. pt is tachycardic and is mild tachypnic. pt has flaccid left leg from old injury. pt has hx of prostate and kidney cancer. pt arrived via ems. Review of Systems - Adult - REVIEW OF SYSTEMS - ADULT ROS:: limited per condition (pt ams) Constitutional: reports: see HPI, other (ams). denies: fever, fatique, night sweats Eyes: reports: no symptoms reported Ears, Nose, Mouth & Throat: reports: no symptoms reported Cardiovascular: reports: no symptoms reported Respiratory: reports: no symptoms reported Gastrointestinal: reports: no symptoms reported Genitourinary: reports: no symptoms reported Musculoskeletal: reports: no symptoms reported Integumentary: reports: no symptoms reported Neurological: reports: see HPI, tremors. denies: loss of balance, numbness, slurred speech, syncope Psychiatric: reports: no symptoms reported Endocrine: reports: no symptoms reported Hematologic/Lymphatic: reports: no symptoms reported Allergic/Immunologic: reports: no symptoms reported All Other Systems: Reviewed and Negative Past History - Adult - PAST MEDICAL HISTORY-ADULT Review of Records: reports: Old Records Reviewed, Nursing Assessment Review, Medications Reviewed, Social history reviewed & non-contributory. Major Childhood Illnesses: reports: denies history Cardiovascular: reports: HTN Respiratory: reports: sleep apnea Gastrointestinal: reports: cancer (prostate) Obstetrical/Gynecological: reports: denies history Genitourinary: reports: cancer (Left Kidney), dialysis, prostate cancer Musculoskeletal: reports: neck/back injury, spinal fracture Neurological: reports: denies history Psychiatric: reports: denies history Endocrine/Immune: reports: Diabetes Other Conditions: reports: denies history - PRIOR SURGERIES/PROCEDURES Surgical/Procedure History: reports: recent surgery (Left nephrectomy), joint replacement (Total hip) - PRIOR HOSPITALIZATIONS Prior Hospitalizations: reports: for other non-related - IMMUNIZATION STATUS Childhood Immunizations: See Nurse Assessment Flu Vaccine: See Nurse Assessment - FAMILY HISTORY Family History: reviewed, not pertinent - SOCIAL HISTORY Smoking: non-smoker Substance Use: none/never Physical Exam-General - PHYSICAL EXAM-ADULT Initial Vital Signs Reviewed: Yes - CONSTITUTIONAL General Appearance: mild distress, obese, other (ams, appears to answer questions appropriately). negative: thin, anxious, combative - EYES Eyes: PERRL/EOMI, pink conjunctivae - HEAD, EARS, NOSE, MOUTH & THROAT HENMT: normocephalic/atraumatic, moist mucous membranes - NECK Neck: supple, normal inspection - RESPIRATORY Respiratory: chest non-tender, lungs clear, normal breath sounds, no pleuratic chest pain, no respiratory distress, no accessory muscle use, other (mild tachypnic). negative: respiratory distress, decreased breath sounds, crackles, rales, rhonchi - CARDIOVASCULAR Cardiovascular: normal peripheral pulses, no edema, no gallop, no JVD, no murmur , tachycardia. negative: regular rate, rhythm, JVD, bradycardia, friction rub, irregularly irregular - GASTROINTESTINAL (ABDOMEN) Abdominal Exam: normal bowel sounds, non tender, soft - LYMPHATIC Lymphatic: no adenopathy - MUSCULOSKELETAL Back Exam: normal inspection, no CVA tenderness, no vertebral tenderness Extremity: normal range of motion, non-tender, normal inspection Peripheral Pulses: radial (R): 2+, radial (L): 2+ - SKIN Integumentary: normal color, normal turgor, warm/dry, decubitus (There is a decubitus ulcer at the top of the buttocks that is only involving the surface of the skin.) Progress - PLAN OF CARE/RESULTS Progress/Plan/Lab Results: Vital Signs - 8 hr 09/08/18 16:02 09/08/18 16:08 Temperature 99.6 F Pulse Rate 143 H 146 H Respiratory Rate 27 H 20 Blood Pressure 100/58 100/58 Laboratory Results - last 24 hr 09/08/18 16:05 POC Glucose 122 H Result Diagrams: 09/08/18 16:10 09/08/18 16:10 - XRAY 1 XRAY Study: Chest Impression: See EMR Report (EXAM: CHEST-1 VIEW HISTORY: ams TECHNIQUE: Chest single view COMPARISON: 06/22/2018 FINDINGS: Poor inspiratory effort. No change in the right subclavian portacatheter. Heart is mildly prominent. No pulmonary edema. No pneumonia. Pleural effusions identified. IMPRESSION: Mildly prominent heart. Electronically signed by Emmanuel Pak 09/08/2018 4:33 PM) Comparison with other Films: no changes - CT/MRI 1 CT Study: Head ([facility] - [address] [facility] [address] [place] [id number] [facility] - [address] [place] [address] Department of Imaging Patient: AMIRAH HAMILTON JrADM Date: 09/08/18MR#: [id number] : 9ADM Status: [facility]#: [id number] Age/Sex: 68/MRoom/Bed: Loc: ED Ordering Physician: Vishnu Estrada Family Physician: Ronan Vazquez MD Reason for Procedure: r/o stroke Signed EXAM: CT HEAD W/O CONTRAST HISTORY: r/o stroke TECHNIQUE: CT head without contrast COMPARISON: None. FINDINGS: No parenchymal hemorrhage. No epidural or subdural hematoma. No subarachnoid hemorrhage. There is atrophy with chronic microvascular ischemic changes. No mass identified on this noncontrasted exam. No hydrocephalus. No sinus opacification. IMPRESSION: 1.No hemorrhage 2.Atrophy with chronic microvascular ischemic changes. This exam was performed using automated exposure control, adjustment of mA or kV according to patient size, and/or use of iterative reconstruction technique. E lectronically signed by Emmanuel Pak 09/08/2018 5:07 PM 09/08/18 170 Interpreting Physician: Emmanuel Pak MD Dictated Date/Time: 09/08/181704 cc: Vishnu Estrada; Ronan Vazquez MD) CT Results: See note - CONSULTS/PCP/HOSPITALIST Notification #1 *Consult/PCP/Hospitalist*: Dr. Chávez Time Discussed: 17:38 Reason/Comments: Admission Consult Disposition: Admit Departure - Departure Date of Disposition Decision: 09/08/18 Time of Disposition Decision: 17:24 DIAGNOSIS: Acute hyperkalemia, Elevated troponin Acute on chronic renal failure Qualifiers: Acute renal failure type: unspecified Chronic kidney disease stage: unspecified stage Qualified Code(s): N17.9 - Acute kidney failure, unspecified; N18.9 - Chronic kidney disease, unspecified Anemia Qualifiers: Anemia type: unspecified type Qualified Code(s): D64.9 - Anemia, unspecified Disposition: ADMITTED INPATIENT 09 Certified Medical Emergency: Emergent Condition: Serious Referrals and Follow-Ups: Ronan Vazquez MD [Primary Care Provider] - - Critical Care Note This patient required my direct & personal management of CC.: Yes Total Time (mins): 35 Critical Care Statement: This patient required my direct personal management to treat or rule out processes, the absence of which, could potentiallly result in sudden, clinically significant life or limb threatening deterioration. Attestation - Physician/ DARYN Attestation Patient care was provided by Advanced Practice Provider:: Yes Advanced Practice Provider:: Vishnu Estrada Advanced Practice Provider documentation review:: The Mid-level provider documentation, treatment plan and medical decision making was reviewed by the physician who agrees with all treatment and medical decision making by the MLP. The physician spent face to face time with patient:: No Advanced Practice Provider documentation review:: Supervising physician onsite and consulted in the evaluation and care of this patient. The physician did not have a face to face encounter with the patient. This chart was documented by the indicated scribe, (Vale Bragg Scribe) and accurately reflects the services I performed and decisions made by me, Vishnu Estrada CRNP, as attested by the provider's signature.
--- NOTE | 2018-09-08 17:09 | Diag Imaging Result Doc PS360 ---
EXAM: CT HEAD W/O CONTRAST HISTORY: r/o stroke TECHNIQUE: CT head without contrast COMPARISON: None. FINDINGS: No parenchymal hemorrhage. No epidural or subdural hematoma. No subarachnoid hemorrhage. There is atrophy with chronic microvascular ischemic changes. No mass identified on this noncontrasted exam. No hydrocephalus. No sinus opacification. IMPRESSION: 1.No hemorrhage 2.Atrophy with chronic microvascular ischemic changes. This exam was performed using automated exposure control, adjustment of mA or kV according to patient size, and/or use of iterative reconstruction technique. Electronically signed by Emmanuel Pak 09/08/2018 5:07 PM
[2018-09-08 17:21] LABS: ALB/GLOB RATIO 0.8; ALBUMIN 3.1 g/dL (3.5-5.0); CALCIUM 8.8 mg/dL (8.8-10.2); CREATININE 2.5 mg/dL (0.7-1.2); POTASSIUM 6.5 mmol/L (3.5-5.1); TOTAL BILIRUBIN 0.48 mg/dL (0.20-1.00)
[2018-09-08] MEDS ORDERED: ALBUTEROL NEB INH ONE (17:36)
[2018-09-08] MEDS ORDERED: KAYEXALATE PO ONE (17:37)
[2018-09-08] MEDS ORDERED: D50W SYRINGE IV ONE (17:37)
[2018-09-08] MEDS ORDERED: HUMULIN R IV ONE (17:37)
[2018-09-08] MEDS ORDERED: CALCIUM CHLORIDE 1 GM in NS 100 ML IV ONE (17:37)
[2018-09-08] MEDS ORDERED: ALBUTEROL 0.5% INH CONC FOR HYPERKALEMIA INH ONE (18:00)
--- NOTE | 2018-09-08 18:16 | EKG Report ---
Test Performed on : 09/08/2018 4:02:57 PM Test Reason : AMS Blood Pressure : / mmHG Vent. Rate : 147 BPM Atrial Rate : 147 BPM P-R Int : 140 ms QRS Dur : 070 ms QT Int : 254 ms P-R-T Axes : 050 -86 028 degrees QTc Int : 397 ms Sinus tachycardia. Left axis deviation Abnormal ECG When compared with ECG of 21-JUN-2018 17:21, Vent. rate has increased BY 53 BPM Unconfirmed Result
[2018-09-08 18:59] LABS: URINE SOURCE CLEAN CATCH
[2018-09-08 19:05] LABS: BILIRUBIN URINE NEGATIVE (NEGATIVE); BLOOD URINE MODERATE (NEGATIVE); COLOR ORANGE; GLUCOSE URINE NEGATIVE (NEGATIVE); KETONE URINE NEGATIVE (NEGATIVE); LEUKOCYTES URINE LARGE (NEGATIVE); NITRITE URINE NEGATIVE (NEGATIVE); PROTEIN URINE 30 mg/dL (NEGATIVE); SP GRAVITY URINE 1.009; TURBIDITY URINE TURBID (CLEAR); UROBILINOGEN URINE NORMAL (NORMAL)
[2018-09-08 19:07] LABS: UR EPITHELIAL CELLS <10 /HPF (<10); URINE BACTERIA 1+ /HPF; URINE RBC TNTC /HPF (<10); URINE WBC TNTC /HPF (<10)
[2018-09-08] MEDS ORDERED: TYLENOL PO PRN (19:56)
[2018-09-08] MEDS ORDERED: LOVENOX SUBQ SCH (21:00)
[2018-09-08 23:26] LABS: CALCIUM 9.2 mg/dL (8.8-10.2); CREATININE 2.7 mg/dL (0.7-1.2); POTASSIUM 5.4 mmol/L (3.5-5.1)
[2018-09-08] MEDS ORDERED: SODIUM CHLORIDE 0.9% INJ SCH (23:45)
[2018-09-09] MEDS: NEURONTIN PO SCH ×3 (00:10→21:34)
[2018-09-09] MEDS: CATAPRES PO SCH ×4 (00:10→21:34)
[2018-09-09] MEDS: NEXIUM IV SCH ×3 (00:10→23:46)
[2018-09-09] MEDS: MAXIPIME 1 GM in NS 50 ML IV SCH ×3 (00:10→23:46)
--- NOTE | 2018-09-09 01:09 | HISTORY AND PHYSICAL ---
CHIEF COMPLAINT: Generalized weakness. HISTORY OF PRESENT ILLNESS: He is a 68-year-old male patient of Dr. Vazquez, came to the ER with generalized pain, weakness for the last 2 days. He was admitted with similar presentation back in June. During that time, he had a significant hyperkalemia. Today, potassium 6.5. He did not have any EKG changes. He was given calcium gluconate, followed by albuterol, D5 with insulin, Kayexalate. He has been admitted to [facility] for hyperkalemia and possible evaluation for weakness. PAST MEDICAL HISTORY: 1. Chronic kidney disease stage 3. The patient has 1 kidney, as per the history. 2. Hypertension. 3. Metastatic prostate cancer. 4. Sleep apnea. 5. Metabolic syndrome. 6. Type 2 diabetes. 7. Anemia of chronic disease. PAST SURGICAL HISTORY: 1. Status post left nephrectomy. 2. Port placement. MEDICATIONS: Lipitor 20 daily, Xtandi 80 mg p.o. b.i.d., Januvia 100 daily, amlodipine 5 daily, clonidine 0.2 p.o. b.i.d., gabapentin 300 p.o. b.i.d. ALLERGIES: Levaquin. REVIEW OF SYSTEMS: The patient is not very communicative. He has been assisting with food and he has had some weakness. He lives with his . He has limited activities of daily living as well as instrumental activities. Dr. Caceres is oncologist for metastatic cancer. PHYSICAL EXAMINATION: VITAL SIGNS: Height is 5 feet 8 inches. Weight 210 pounds. He is running fever 102, pulse is 134, blood pressure is 126/101, on 4 L nasal cannula 100% saturation. GENERAL: Heavyset. HEENT: Atraumatic, normocephalic. Pupils equal, react to light. NECK: Supple. CHEST: Bilateral air entry. HEART: Distant heart sounds. ABDOMEN: Belly is soft, obese, nontender. EXTREMITIES: There is 1+ pedal edema. No obvious neurological deficits. INVESTIGATIONS: White cell count 11, hematocrit 27.9, platelets 393,000. Sodium 135, potassium 5.4, chloride 106, BUN 35, creatinine 2.7. Glucose 125. Urine is positive for infection. Blood cultures, urine cultures are pending. Chest x-ray, single-view, poor inspiratory film. Mild prominent heart. Port was present on the right side. CT head, no hemorrhage. 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 Lumbar spine CT, multilevel spinal neuroforaminal stenosis, worsening metastatic disease at T12. ASSESSMENT AND PLAN: 1. A 68-year-old male admitted to the hospital, altered mental status due to metabolic encephalopathy. CT is negative. 2. Hyperkalemia is a pressing issue. Resuscitated appropriately in the ER. Follow up on SMA 7. Admit in [facility]. 3. Chronic kidney disease, stable. 4. Chronic anemia, stable. 5. Metastatic prostate cancer with bone metastases, under the care of Dr. Caceres. Will follow up on PSA and needs some physical therapy with assistance. 6. Deep venous thrombosis and gastrointestinal prophylaxis respectively with Lovenox and Nexium. 7. Fever, possible urinary tract infection. Chest x-ray stable. Will follow up on panculture workup. Will start antibiotics based on the previous urinary tract infection with Pseudomonas and Klebsiella. We will use the cefepime. 8. Reconcile home medications. Will follow up. cc: MD Ronan Booker MD
[2018-09-09 05:58] LABS: HEMATOCRIT 24.8 % (42.0-52.0); HEMOGLOBIN 7.3 g/dL (14.0-18.0); MCH 22.7 PG (27-31); MCHC 29.4 g/dL (33-37); RBC 3.22 XMIL (4.7-6.1); RDW 17.5 % (11.5-14.5); WBC 15.69 X1000 (4.8-10.8)
[2018-09-09] MEDS: HUMULIN R SUBQ SCH ×4 (06:16→20:49)
[2018-09-09 06:20] LABS: ALB/GLOB RATIO 0.6; ALBUMIN 2.5 g/dL (3.5-5.0); CALCIUM 8.5 mg/dL (8.8-10.2); CREATININE 2.9 mg/dL (0.7-1.2); POTASSIUM 5.3 mmol/L (3.5-5.1); TOTAL BILIRUBIN 0.41 mg/dL (0.20-1.00); TOTAL PROTEIN 6.8 g/dL (6.3-8.3)
[2018-09-09] MEDS: JANUVIA PO SCH (08:52)
[2018-09-09] MEDS: NORVASC PO SCH (08:52)
--- NOTE | 2018-09-09 17:58 | PROGRESS NOTE ---
DATE: 09/09/2018 SUBJECTIVE: The is at bedside, and the nurses have reported he has incontinence of urine, and he also had stage II pressure ulcer on the back and is completely bedridden due to metastatic disease of prostate cancer. He also has UTI. Follow up on potassium, doing very well. REVIEW OF SYSTEMS: None reported. PHYSICAL EXAMINATION: Vitals: Temp 98, pulse 106, blood pressure 111/53, 3 L nasal cannula 99%. Chest: Clear. Heart: Sounds are regular. GI: Belly is soft, nontender. Back: Please see attached copies of the pressure ulcer on the back. General: Completely bedridden. LABS: CBC: White cell count 15, hematocrit 24.8, platelets 316,000. Sodium 137, potassium 5.3, chloride 36, creatinine 2.9, glucose 114. Alkaline phosphorous is elevated. Urinalysis positive for infection. Urine cultures are positive for gram- negative rods also in the buttocks. Blood cultures are pending. ASSESSMENT AND PLAN: 1. Hyperkalemia is improving. 2. Metastatic prostate cancer under the treatment of Dr. Caceres. We will check the prostate- specific antigen. 3. Urinary tract infection. The patient was started on cefepime 1 g IV q.12. 4. Chronic kidney disease, stable. 5. Mahajan catheter. 6. Stage II pressure ulcer. Continue the local wound care. Wound care consult will be obtained in the morning. 7. Hyperlipidemia, on Lipitor. 8. Hypertension, on Norvasc and Catapres. 9. Deep venous thrombosis prophylaxis with Lovenox. 10. GI prophylaxis with intravenous Nexium. 11. Chronic pain, on gabapentin. 12. Elevated alkaline phosphatase due to metastatic disease of prostate cancer. Dr. Caceres to consult in the morning. 13. I spoke to the . The living will is full code, and Dr. Vazquez is going to follow up in the morning. Palliative Care consult was obtained. LEVEL OF DOCUMENTATION: 25 minutes. cc: MD Ronan Booker MD [facility]
[2018-09-09 19:03] LABS: URINE SOURCE CATH
[2018-09-09 19:07] LABS: BILIRUBIN URINE NEGATIVE (NEGATIVE); BLOOD URINE MODERATE (NEGATIVE); COLOR BROWN; GLUCOSE URINE TRACE mg/dL (NEGATIVE); KETONE URINE NEGATIVE (NEGATIVE); LEUKOCYTES URINE LARGE (NEGATIVE); NITRITE URINE NEGATIVE (NEGATIVE); PROTEIN URINE 200 mg/dL (NEGATIVE); SP GRAVITY URINE 1.006; TURBIDITY URINE TURBID (CLEAR); UROBILINOGEN URINE NORMAL (NORMAL)
[2018-09-09 19:12] LABS: UR EPITHELIAL CELLS >10 /HPF (<10); URINE BACTERIA NEGATIVE /HPF; URINE WBC TNTC /HPF (<10)
[2018-09-09 19:28] LABS: URINE CASTS GRANULAR PRESENT; URINE CRYSTALS NONE SEEN; URINE SMALL ROUND CELLS NONE SEEN; URINE YEAST NONE SEEN
[2018-09-09] MEDS: LIPITOR PO SCH (21:34)
[2018-09-09] MEDS: LOVENOX SUBQ SCH (21:34)
[2018-09-10] MEDS: HUMULIN R SUBQ SCH ×4 (06:08→21:59)
[2018-09-10] MEDS: NEURONTIN PO SCH ×2 (09:26→22:02)
[2018-09-10] MEDS: CATAPRES PO SCH ×3 (09:26→22:01)
[2018-09-10] MEDS: NORVASC PO SCH (09:26)
[2018-09-10] MEDS: JANUVIA PO SCH (09:26)
[2018-09-10] MEDS: MAXIPIME 1 GM in NS 50 ML IV SCH (11:37)
[2018-09-10] MEDS: NEXIUM IV SCH (11:37)
[2018-09-10 15:56] LABS: BASO# 0.01 X1000 (0.0-0.2); BASO% 0.1 % (0.0-0.8); EOS% 1.7 % (0.0-10.0); HEMATOCRIT 22.8 % (42.0-52.0); IMM GRAN# 0.05 X1000 (0.0-0.04); IMM GRAN% 0.4 % (0.0-0.5); LYMPH# 0.85 X1000 (1.2-3.4); LYMPH% 7.3 % (20.5-51.1); MCH 22.5 PG (27-31); MCHC 30.7 g/dL (33-37); MCV 73.3 FL (81-99); MONO# 1.32 X1000 (0.11-0.59); MONO% 11.3 % (1.7-9.3); MPV 8.9 FL (7.4-10.4); NEUT# 9.22 X1000 (1.4-6.5); NEUT% 79.2 % (42.2-75.2); PLT 344 X1000 (130-400); RBC 3.11 XMIL (4.7-6.1); RDW 17.3 % (11.5-14.5); WBC 11.65 X1000 (4.8-10.8)
[2018-09-10 16:41] LABS: LYMPHS 12 % (21-51); MONO 10 % (1-9); SEGS 78 % (42-75)
[2018-09-10 16:42] LABS: MICROCYTOSIS 1+; TARGET CELLS OCCASIONAL
[2018-09-10] MEDS: NS 500 ML ONE ×2 (17:03→17:53)
--- NOTE | 2018-09-10 17:56 | PROGRESS NOTE ---
DATE: 09/10/2018 Mr Hogan is doing about the same. Vital signs are stable. He is anemic. Hemoglobin is down to 7 g, and he has been having some weakness. His potassium has come down to 5.3 secondary to renal failure. He is on IV antibiotics, namely cefepime for the wound infection. Overall condition is otherwise unchanged. We will try to make some arrangements for a blood transfusion on him. cc: Ronan Vazquez MD
[2018-09-10] MEDS: PATIENT'S OWN MED - CHEMO PO SCH (22:01)
[2018-09-10] MEDS: LIPITOR PO SCH (22:01)
[2018-09-10] MEDS: LOVENOX SUBQ SCH (22:02)
[2018-09-11] MEDS: MAXIPIME 1 GM in NS 50 ML IV SCH ×2 (00:29→12:30)
[2018-09-11] MEDS: NEXIUM IV SCH (00:29)
[2018-09-11 06:11] LABS: BASO# 0.01 X1000 (0.0-0.2); BASO% 0.1 % (0.0-0.8); EOS# 0.35 X1000 (0.0-0.7); EOS% 2.9 % (0.0-10.0); HEMATOCRIT 25.3 % (42.0-52.0); HEMOGLOBIN 7.9 g/dL (14.0-18.0); IMM GRAN% 0.8 % (0.0-0.5); LYMPH# 0.77 X1000 (1.2-3.4); LYMPH% 6.3 % (20.5-51.1); MCH 23.2 PG (27-31); MCHC 31.2 g/dL (33-37); MCV 74.2 FL (81-99); MONO# 1.74 X1000 (0.11-0.59); MONO% 14.2 % (1.7-9.3); MPV 9.5 FL (7.4-10.4); NEUT# 9.26 X1000 (1.4-6.5); NEUT% 75.7 % (42.2-75.2); PLT 288 X1000 (130-400); RBC 3.41 XMIL (4.7-6.1); WBC 12.23 X1000 (4.8-10.8)
[2018-09-11] MEDS ORDERED: SODIUM CHLORIDE 0.9% INJ SCH (06:30)
[2018-09-11 06:35] LABS: CALCIUM 8.2 mg/dL (8.8-10.2); CREATININE 2.2 mg/dL (0.7-1.2)
[2018-09-11] MEDS: HUMULIN R SUBQ SCH ×4 (06:45→22:20)
[2018-09-11] MEDS: JANUVIA PO SCH (09:51)
[2018-09-11] MEDS: NORVASC PO SCH (09:51)
[2018-09-11] MEDS: NEURONTIN PO SCH ×2 (09:51→22:19)
[2018-09-11] MEDS: PROTONIX IV SCH (12:30)
[2018-09-11] MEDS: CATAPRES PO SCH ×2 (12:31→22:18)
--- NOTE | 2018-09-11 13:44 | PROGRESS NOTE ---
DATE: 09/11/2018 Mr. Hogan is doing fairly well. He has a large decubitus. Urine culture grew gram-negative luther, and the culture from the buttock grew Morganella morganii. Blood cultures are negative so far. He is on cefepime given by Dr. Chávez. We are going to continue that. Overall condition is otherwise unchanged. Hemoglobin has come up from 7 to 7.9, and he wants to wait for the transfusion. We will wait. Will get the Wound Care nurse consultation. -8 cc: Ronan Vazquez MD
[2018-09-11] MEDS: SANTYL OINT TOP SCH (17:55)
[2018-09-11] MEDS: PATIENT'S OWN MED - CHEMO PO SCH (22:18)
[2018-09-11] MEDS: LIPITOR PO SCH (22:19)
[2018-09-11] MEDS: LOVENOX SUBQ SCH (22:20)
[2018-09-12] MEDS: MAXIPIME 1 GM in NS 50 ML IV SCH ×2 (00:15→11:51)
[2018-09-12] MEDS: PROTONIX IV SCH ×2 (00:15→12:51)
[2018-09-12] MEDS: HUMULIN R SUBQ SCH ×4 (06:50→21:40)
[2018-09-12] MEDS: JANUVIA PO SCH (08:34)
[2018-09-12] MEDS: SANTYL OINT TOP SCH (08:35)
[2018-09-12] MEDS: NEURONTIN PO SCH ×2 (08:35→21:39)
[2018-09-12] MEDS: CATAPRES PO SCH ×3 (08:35→21:39)
[2018-09-12] MEDS: NORVASC PO SCH (08:35)
--- NOTE | 2018-09-12 09:30 | PROGRESS NOTE ---
DATE: 09/12/2018 SUBJECTIVE: Mr. Hogan blood sugar was 103. He has Pseudomonas aeruginosa UTI. He is on cefepime, and we are going to continue that. He had Proteus in the urine and routine culture from the wound grew Morganella morganii, which was sensitive to cefepime also. The Proteus is also sensitive to most of the antibiotics. We are repeating his blood values tomorrow, his CBC and Chem-7, and he is supposed to be getting the physical therapy. -4 cc: Ronan Vazquez MD
--- NOTE | 2018-09-12 16:20 | HEMO/ONC CONSULTATION ---
DATE: 09/10/2018 ADMITTING PHYSICIAN: Dr. Chávez. REQUESTING PHYSICIAN: Dr. Chávez. We appreciate this consult. CHIEF COMPLAINT: Prostate cancer. HISTORY OF PRESENT ILLNESS: Mr. Richard Hogan is a pleasant 68-year-old, male well known to Dr. Caceres with a history of metastatic prostate cancer to the bone. The patient has been maintained on Xtandi and Eligard. His PSA has been stable. He is followed closely in clinic. The patient presented to [facility] emergency department with complaints of generalized pain and weakness for approximately two days prior to admission. He had a similar admission in June of 2018 and at that time the patient was found to have hyperkalemia. On admission on 09/08/2018 the patient's potassium was found to be 6.5. The patient did not have EKG changes. He was given calcium gluconate with Albuterol and D5 with insulin and Kayexalate. The patient was admitted to [facility] for hyperkalemia and evaluation for weakness. We are consulted as the patient is well known to us. PAST MEDICAL HISTORY: 1. Chronic kidney disease, stage 3. 2. Hypertension. 3. Metastatic prostate cancer. 4. Obstructive sleep apnea. 5. Metabolic syndrome. 6. Diabetes mellitus, type 2. 7. Anemia of chronic disease. PAST SURGICAL HISTORY: 1. Left nephrectomy. 2. Port placement. SOCIAL HISTORY: The patient does not use alcohol, illicit drugs or tobacco. FAMILY HISTORY: Negative for any hematologic or oncologic disease. MEDICATIONS ON ADMISSION: 1. Lipitor. 2. Xtandi. 3. Januvia. 4. Amlodipine. 5. Clonidine. 6. Gabapentin. ALLERGIES: Levaquin. REVIEW OF SYSTEMS: A 14 point review of systems was obtained and is negative, except for mentioned in HPI. PHYSICAL EXAM: General: Mr. Hogan is a pleasant 68-year-old male, lying supine in bed in no immediate distress. Vital Signs: Temperature 99.1, blood pressure 117/56, heart rate 100, respirations 16, O2 saturation is 99% on 3L nasal cannula O2. HEENT: Normocephalic, atraumatic. Mucous membranes are pale and moist. Sclerae is anicteric. Extraocular movements intact. Neck: Supple. Lungs: Clear to auscultation bilaterally. Chest expansion is equal bilaterally. CV: S1, S2 is heard. No murmurs, rubs or gallops. Abdomen: Nondistended. Extremities: No clubbing, cyanosis, or edema. Dermatologic: No rashes, bruises or lesions. Neurologic: The patient is awake, alert and oriented x3. He has no focal deficit. LABORATORY DATA: Blood cultures are pending. Hemoglobin 7.3, hematocrit 24.8, white blood cell count is 15.69, platelets 316,000. Sodium 137, potassium 5.3, chloride 107, CO2 is 19. BUN 36, creatinine 2.9, and glucose is 102. Alkaline phosphatase 445. All other LFTs are within normal limits. Urinalysis is positive for UTI. IMAGING STUDIES: CT of the head reveals no acute abnormality. Chest x-ray reveals a mildly prominent heart. ASSESSMENT AND PLAN: 1. Metastatic prostate cancer to the bone. Currently on Xtandi and Eligard. Last PSA was stable. The patient has been followed in clinic closely. We will continue to follow. 2. Altered mental status with metabolic encephalopathy. CT of the head was negative. Other workup is pending. 3. Hyperkalemia. Improving with a potassium of 5.3 today. 4. Fever and urinary tract infection. The patient is currently on cefepime. 5. Anemia. We will transfuse one unit of packed red blood cells at this time. We will continue to monitor complete blood count. 6. We will follow along with him and make further recommendations pending outcomes. The above reflects the history, exam, assessment and plan of Dr. Caceres. Dictated by CAROL Ruiz for Giuseppe Caceres MD cc: CAROL Ruiz MD Amit V. Vora, MD
[2018-09-12] MEDS: LIPITOR PO SCH (21:39)
[2018-09-12] MEDS: LOVENOX SUBQ SCH (21:40)
[2018-09-12] MEDS: PATIENT'S OWN MED - CHEMO PO SCH (21:41)
[2018-09-13] MEDS: PROTONIX IV SCH (00:22)
[2018-09-13] MEDS: MAXIPIME 1 GM in NS 50 ML IV SCH (00:22)
[2018-09-13] MEDS: HUMULIN R SUBQ SCH ×4 (06:06→20:57)
[2018-09-13 06:21] LABS: BASO# 0.04 X1000 (0.0-0.2); BASO% 0.4 % (0.0-0.8); EOS# 0.38 X1000 (0.0-0.7); EOS% 3.9 % (0.0-10.0); HEMATOCRIT 26.2 % (42.0-52.0); HEMOGLOBIN 8.2 g/dL (14.0-18.0); IMM GRAN# 0.28 X1000 (0.0-0.04); IMM GRAN% 2.9 % (0.0-0.5); LYMPH# 1.11 X1000 (1.2-3.4); LYMPH% 11.3 % (20.5-51.1); MCH 23.3 PG (27-31); MCHC 31.3 g/dL (33-37); MCV 74.4 FL (81-99); MONO# 1.07 X1000 (0.11-0.59); MONO% 10.9 % (1.7-9.3); NEUT% 70.6 % (42.2-75.2); PLT 366 X1000 (130-400); RBC 3.52 XMIL (4.7-6.1); RDW 18.5 % (11.5-14.5); WBC 9.78 X1000 (4.8-10.8)
[2018-09-13 06:36] LABS: CALCIUM 9.3 mg/dL (8.8-10.2); CREATININE 1.9 mg/dL (0.7-1.2); POTASSIUM 4.3 mmol/L (3.5-5.1)
[2018-09-13] MEDS: NEURONTIN PO SCH ×2 (08:36→20:57)
[2018-09-13] MEDS: JANUVIA PO SCH (08:36)
[2018-09-13] MEDS: NORVASC PO SCH (08:36)
[2018-09-13] MEDS: CATAPRES PO SCH ×2 (08:37→20:57)
--- NOTE | 2018-09-13 09:15 | PROGRESS NOTE ---
DATE: 09/13/2018 Mr. Hogan is doing fairly well. His hemoglobin is up to 8.2, hematocrit 26.3. Had Pseudomonas aeruginosa isolated from the urine, had multiple different organisms isolated from the wound as well as urine, and actually there are two organisms isolated from the urine. I am going to ask Dr. Cherry to see him. -9 cc: Ronan Vazquez MD
[2018-09-13] MEDS: SANTYL OINT TOP SCH (09:44)
[2018-09-13] MEDS: PROTONIX PO SCH ×2 (10:29→20:58)
[2018-09-13] MEDS ORDERED: MAXIPIME 2 GM in NS 50 ML IV SCH ×2 (10:52→21:45)
--- NOTE | 2018-09-13 12:24 | INFECTIOUS DISEASE CONSULT REP ---
DATE: 09/13/2018 DISCUSSION: The patient is unable to provide me a history. He came in the hospital with generalized pain and weakness. He also had hyperkalemia. His other studies show on chest x-ray, there is no pneumonia. CT scan of the head showed atrophy and chronic microvascular ischemic changes. Urine culture is growing Pseudomonas and Proteus. Left buttock decubitus ulcer is growing a Morganella. Urinalysis has white cells and red cells present, but no bacteria. PAST MEDICAL HISTORY: 1. Chronic kidney disease. 2. Hypertension. 3. Metastatic prostate cancer. 4. Sleep apnea. 5. Metabolic syndrome. 6. Type 2 diabetes. 7. Anemia of chronic disease. 8. Hyperlipidemia. PAST SURGICAL HISTORY: Positive for a left nephrectomy and a right-sided Port-A-Cath. HOME MEDICATIONS: Include Lipitor, Xtandi, Januvia, amlodipine, clonidine, and gabapentin. ALLERGIES: The patient is allergic to Levaquin. REVIEW OF SYSTEMS: Unable to be obtained from the patient. PHYSICAL EXAMINATION: Vital Signs: Temperature is 97.9 degrees, pulse 81, respirations 16, blood pressure is 104/57. The patient weighs 212 pounds. General: This is an obese, elderly male. He is in no acute distress. HEENT: He can hear my spoken words and see near objects. When I asked him a question, he was unable to answer it. I did not see any white patches in the patient's mouth. Neck: No meningismus. Lungs: Clear to auscultation. Cardiovascular: Heart rate is irregular. Abdomen: Soft and nontender. Neurologic: The patient is awake. He can move his extremities. When I asked him a question, he attempted to respond, but I could not understand what he was saying. There was no tremor. The patient's legs are paralyzed. Integument: On the left buttock area, there was a superficially ulcerated area. For the most part, the tissue was a white color. There was no bleeding. There was no purulence and no odor to the wound. Thorax: The patient has a Port-A-Cath present on the right side. The site is not swollen or draining pus. CONCLUSION: The patient has a left buttock infected decubitus ulcer. He also has a urinary tract infection. RECOMMENDATIONS: I agree with treating the patient with cefepime. This is day 5 of treatment with it. I have increased the dose to 2 grams IV every 12 hours. Thank you for the consult. cc: MD Ronan Patton MD
[2018-09-13] MEDS: LOVENOX SUBQ SCH (20:56)
[2018-09-13] MEDS: LIPITOR PO SCH (20:57)
[2018-09-13] MEDS: PATIENT'S OWN MED - CHEMO PO SCH (21:04)
[2018-09-13] MEDS: MAXIPIME 2 GM in NS 100 ML IV SCH (21:55)
[2018-09-14] MEDS: HUMULIN R SUBQ SCH ×4 (06:07→21:11)
--- NOTE | 2018-09-14 06:49 | INFECTIOUS DISEASE PROGRESS NO ---
DATE: 09/14/2018 PRESENT ILLNESS: The patient has a Morganella infected left buttock decubitus ulcer and a Proteus and Pseudomonas urinary tract infection. MEDICATIONS: The patient is receiving cefepime in a dose of 2 g IV every 12 hours. PHYSICAL EXAMINATION: Vital Signs: Temperature is 98.4 degrees, pulse 80, respirations 19, blood pressure 110/65. Generally: This is an obese elderly male. He is in no acute distress. Head/eyes/ears/nose/throat: He can hear my spoken words and see near objects. He does not have any white coating on his tongue. Neck: No pain with movement of his neck. Thorax: Patient has a Port-A-Cath present on the right side and the site is not swollen or purulent. Lungs: Clear to auscultation. Cardiovascular: Heart rate is regular. Abdomen: Soft and nontender. Extremities: Patient has bilateral leg edema. LAB AND X-RAY: CBC shows a white count of 9780, hemoglobin 8.2, and platelet count 366,000. Creatinine is 1.9, GFR is 43. Urine culture grew Proteus and Pseudomonas. Culture from the patient's left buttock wound grew Morganella. ASSESSMENT AND PLAN: The patient has the urinary tract infection and the decubitus ulcer. My plan is to continue with cefepime. COMORBIDITIES: The patient has chronic kidney disease and metastatic prostate cancer. The patient also is a diabetic. He has anemia and sleep apnea. cc: MD Ronan Patton MD
[2018-09-14] MEDS: MAXIPIME 2 GM in NS 100 ML IV SCH ×2 (09:44→21:55)
[2018-09-14] MEDS: CATAPRES PO SCH ×2 (09:44→21:55)
[2018-09-14] MEDS: JANUVIA PO SCH (09:44)
[2018-09-14] MEDS: PROTONIX PO SCH ×2 (09:44→21:55)
[2018-09-14] MEDS: NEURONTIN PO SCH ×2 (09:44→21:55)
[2018-09-14] MEDS: NORVASC PO SCH (09:44)
[2018-09-14] MEDS: SANTYL OINT TOP SCH (09:45)
--- NOTE | 2018-09-14 11:50 | PROGRESS NOTE ---
DATE: 09/14/2018 Mr. Hogan does not have any complaints. He is getting IV cefepime for the urinary tract as well as wound infection, with different organisms. He does have anemia at present. Hemoglobin is around 8.2. We are not trying to transfuse him. He has a large decubitus. I will discuss with the family members about the surgical consult on it for possible mild debridement. -4 cc: Ronan Vazquez MD
--- NOTE | 2018-09-14 19:56 | GENERAL SURGERY CONSULTATION ---
DATE: 09/14/2018 Mr. Hogan 68-year-old male who apparently is pretty much bedbound. He is admitted with generalized weakness. His states that he has had this ulcer on his sacrum for some time. Other medical problems include chronic kidney disease stage 3, hypertension, metastatic prostate cancer, metabolic syndrome, type 2 diabetes, anemia of chronic disease, sleep apnea, has had a previous left nephrectomy, has had a port placement. MEDICATIONS: Include Lipitor, Xtandi, Januvia, amlodipine, clonidine and gabapentin. ALLERGIES: He has an allergy to Levaquin. SOCIAL HISTORY: He is , lives with his . REVIEW OF SYSTEMS: As noted above. PHYSICAL EXAMINATION: Vital Signs: He is afebrile. Heart rate 85, blood pressure 115/71. Bilateral breath sounds. Regular rate and rhythm. Abdomen soft. He does have a decubitus on the sacrum. This seems shallow with shallow eschar. No fluctuance. No purulent drainage. He has had a bowel movement currently. ASSESSMENT: Stage III sacral decubitus without evidence of necrosis or drainage. He is at high risk for contamination due to his fecal soilage. He is afebrile and his white count is normal. Will follow along and determine if any debridement is necessary. Based on the exam today I do not think debridement will make a big difference but I will continue to check him and see if he will come to debridement. cc: MD Ronan Cassidy MD
[2018-09-14] MEDS: LOVENOX SUBQ SCH (21:55)
[2018-09-14] MEDS: LIPITOR PO SCH (21:55)
[2018-09-14] MEDS: PATIENT'S OWN MED - CHEMO PO SCH (21:56)
[2018-09-15 05:47] LABS: BASO# 0.03 X1000 (0.0-0.2); BASO% 0.3 % (0.0-0.8); EOS# 0.41 X1000 (0.0-0.7); EOS% 3.9 % (0.0-10.0); IMM GRAN# 0.46 X1000 (0.0-0.04); IMM GRAN% 4.4 % (0.0-0.5); LYMPH# 0.98 X1000 (1.2-3.4); LYMPH% 9.4 % (20.5-51.1); MCH 23.3 PG (27-31); MCHC 30.8 g/dL (33-37); MCV 75.6 FL (81-99); MONO# 0.99 X1000 (0.11-0.59); MONO% 9.5 % (1.7-9.3); MPV 8.6 FL (7.4-10.4); NEUT# 7.52 X1000 (1.4-6.5); NEUT% 72.5 % (42.2-75.2); PLT 385 X1000 (130-400); RBC 3.44 XMIL (4.7-6.1); RDW 18.7 % (11.5-14.5); WBC 10.39 X1000 (4.8-10.8)
[2018-09-15] MEDS: HUMULIN R SUBQ SCH ×4 (06:06→21:36)
[2018-09-15] MEDS: NORVASC PO SCH (08:24)
[2018-09-15] MEDS: JANUVIA PO SCH (08:24)
[2018-09-15] MEDS: CATAPRES PO SCH ×2 (08:24→21:36)
[2018-09-15] MEDS: NEURONTIN PO SCH ×2 (08:24→21:35)
[2018-09-15] MEDS: PROTONIX PO SCH ×2 (08:24→21:36)
[2018-09-15] MEDS: SANTYL OINT TOP SCH (08:25)
[2018-09-15] MEDS: MAXIPIME 2 GM in NS 100 ML IV SCH ×2 (10:49→21:35)
[2018-09-15] MEDS ORDERED: NS 500 ML IV ONE (11:00)
[2018-09-15] MEDS: LOVENOX SUBQ SCH (21:35)
[2018-09-15] MEDS: LIPITOR PO SCH (21:35)
[2018-09-15] MEDS: PATIENT'S OWN MED - CHEMO PO SCH (21:37)
[2018-09-16 05:49] LABS: BASO# 0.03 X1000 (0.0-0.2); BASO% 0.3 % (0.0-0.8); EOS# 0.33 X1000 (0.0-0.7); EOS% 3.5 % (0.0-10.0); HEMATOCRIT 29.5 % (42.0-52.0); LYMPH# 1.02 X1000 (1.2-3.4); LYMPH% 10.9 % (20.5-51.1); MCH 23.5 PG (27-31); MCHC 30.5 g/dL (33-37); MONO# 0.89 X1000 (0.11-0.59); MONO% 9.5 % (1.7-9.3); NEUT# 7.09 X1000 (1.4-6.5); NEUT% 75.8 % (42.2-75.2); PLT 395 X1000 (130-400); RBC 3.83 XMIL (4.7-6.1); RDW 18.5 % (11.5-14.5); WBC 9.36 X1000 (4.8-10.8)
[2018-09-16 06:05] LABS: CALCIUM 9.5 mg/dL (8.8-10.2); CREATININE 1.6 mg/dL (0.7-1.2); POTASSIUM 4.7 mmol/L (3.5-5.1)
[2018-09-16] MEDS: HUMULIN R SUBQ SCH ×4 (06:22→21:26)
[2018-09-16] MEDS: MAXIPIME 2 GM in NS 100 ML IV SCH ×2 (09:42→21:25)
[2018-09-16] MEDS: JANUVIA PO SCH (09:42)
[2018-09-16] MEDS: SANTYL OINT TOP SCH (09:42)
[2018-09-16] MEDS: CATAPRES PO SCH ×2 (09:43→21:26)
[2018-09-16] MEDS: NORVASC PO SCH (09:43)
[2018-09-16] MEDS: NEURONTIN PO SCH ×2 (09:43→21:25)
[2018-09-16] MEDS: PROTONIX PO SCH ×2 (09:43→21:25)
--- NOTE | 2018-09-16 16:24 | GENERAL SURGERY PROGRESS NOTE ---
DATE: 09/16/2018 I inspected Mr. Hogan wound again today. There appears to be enough necrosis that probably he would benefit from excisional debridement. We will plan for this on Monday the . I discussed this with him and will re-evaluate tomorrow to be certain that that is what we plan to do. cc: MD Ronan Cassidy MD
[2018-09-16] MEDS: LOVENOX SUBQ SCH (21:25)
[2018-09-16] MEDS: PATIENT'S OWN MED - CHEMO PO SCH (21:26)
[2018-09-16] MEDS: LIPITOR PO SCH (21:26)
--- NOTE | 2018-09-17 05:57 | PROGRESS NOTE ---
DATE: 09/15/2018 Mr. Hogan is doing better. He was seen by Dr. Crabtree yesterday. He has a large decubitus however it does not need debridement at the present time. His lungs are clear. Heart sounds are normal. Hemoglobin is back down to 8 and hematocrit 26, white count 10.39. I am going to is going to transfuse him 1 unit of packed RBCs today. -9 cc: Ronan Vazquez MD
[2018-09-17] MEDS: HUMULIN R SUBQ SCH ×4 (06:37→21:36)
[2018-09-17] MEDS: JANUVIA PO SCH (08:48)
[2018-09-17] MEDS: CATAPRES PO SCH ×2 (08:48→21:34)
[2018-09-17] MEDS: NORVASC PO SCH (08:48)
[2018-09-17] MEDS: NEURONTIN PO SCH ×2 (08:48→21:34)
[2018-09-17] MEDS: PROTONIX PO SCH ×2 (08:48→21:34)
[2018-09-17] MEDS: SANTYL OINT TOP SCH (08:49)
--- NOTE | 2018-09-17 09:40 | INFECTIOUS DISEASE PROGRESS NO ---
DATE: 09/17/2018 PRESENT ILLNESS: The patient has a Morganella infected left necrotic buttock decubitus ulcer, and a Proteus and Pseudomonas urinary tract infection. MEDICATIONS: The patient is receiving cefepime 2 g IV every 12 hours. This is day #4 for being on cefepime. PHYSICAL EXAMINATION: Vital Signs: Temperature is 97.2 degrees, pulse 74, respirations 15, blood pressure 116/58. General: This is an obese, elderly male. He is in no acute distress. Head, Eyes, Ears, Nose, and Throat: He can hear my spoken words and see near objects. He does not have any white patches in his mouth. Neck: No pain with movement of his neck. Thorax: The patient has a right-sided Port-A-Cath in place. The site is not swollen or draining. Lungs: Clear to auscultation. Cardiovascular: Regular heart rate. Abdomen: Soft and nontender. Extremities: The patient has bilateral leg edema. Pelvic Examination: The patient, on the left buttock, has a large necrotic-appearing decubitus ulcer. LAB AND X-RAY: There is no new radiographic study today. The patient's CBC shows a white count of 9360, hemoglobin 9, platelet count 395,000. Creatinine is 1.6. GFR is 52. Urine culture grew Pseudomonas and Proteus, and the culture from the decubitus ulcer grew Morganella. ASSESSMENT AND PLAN: The patient has an infected left buttock necrotic decubitus ulcer and a urinary tract infection. I plan on continuing cefepime. Dr. Crabtree is going to be taking the patient to surgery tomorrow for debridement of the ulcer. COMORBIDITIES: Chronic kidney disease, metastatic prostate cancer, diabetes mellitus, anemia, and sleep apnea. cc: MD Ronan Patton MD
[2018-09-17] MEDS: MAXIPIME 2 GM in NS 100 ML IV SCH ×2 (10:18→21:37)
[2018-09-17] MEDS: LOVENOX SUBQ SCH (21:35)
[2018-09-17] MEDS: LIPITOR PO SCH (21:36)
[2018-09-17] MEDS: PATIENT'S OWN MED - CHEMO PO SCH (21:37)
--- NOTE | 2018-09-18 03:42 | PROGRESS NOTE ---
DATE: 09/17/2018 SUBJECTIVE: The patient's blood sugar is 114. He is feeling better. He was seen by Dr. Crabtree yesterday who found necrotic tissue in the sore which he is going to debride tomorrow morning. In the meantime, we will continue his IV antibiotics. -2 cc: Ronan Vazquez MD MTDD
[2018-09-18 05:42] LABS: BASO# 0.03 X1000 (0.0-0.2); BASO% 0.3 % (0.0-0.8); EOS# 0.28 X1000 (0.0-0.7); EOS% 2.7 % (0.0-10.0); HEMATOCRIT 30.7 % (42.0-52.0); HEMOGLOBIN 9.4 g/dL (14.0-18.0); IMM GRAN# 0.29 X1000 (0.0-0.04); IMM GRAN% 2.8 % (0.0-0.5); LYMPH% 10.6 % (20.5-51.1); MCH 23.3 PG (27-31); MCHC 30.6 g/dL (33-37); MONO# 0.93 X1000 (0.11-0.59); MPV 9.2 FL (7.4-10.4); NEUT# 7.76 X1000 (1.4-6.5); NEUT% 74.6 % (42.2-75.2); PLT 401 X1000 (130-400); RBC 4.04 XMIL (4.7-6.1); RDW 18.7 % (11.5-14.5); WBC 10.39 X1000 (4.8-10.8)
[2018-09-18 06:00] LABS: AGAP 8; BUN 33 mg/dL (8-22); CALCIUM 9.8 mg/dL (8.8-10.2); CHLORIDE 107 mmol/L (98-107); COSMO 278; CREATININE 1.4 mg/dL (0.7-1.2); ESTIMATED GFR > 60; GLUCOSE 115 mg/dL (70-104); POTASSIUM 5.4 mmol/L (3.5-5.1); SODIUM 135 mmol/L (136-145); TCO2 20 mmol/L (25-35)
[2018-09-18] MEDS: HUMULIN R SUBQ SCH ×4 (06:20→20:29)
[2018-09-18] MEDS ORDERED: SODIUM BICARBONATE 8.4% IV ONE (08:36)
[2018-09-18] MEDS: NEURONTIN PO SCH ×2 (09:24→20:29)
[2018-09-18] MEDS: PROTONIX PO SCH ×2 (09:24→20:29)
[2018-09-18] MEDS: JANUVIA PO SCH (09:24)
[2018-09-18] MEDS: NORVASC PO SCH (09:24)
[2018-09-18] MEDS: MAXIPIME 2 GM in NS 100 ML IV SCH ×2 (09:24→22:05)
[2018-09-18] MEDS: CATAPRES PO SCH ×2 (09:24→20:29)
--- NOTE | 2018-09-18 09:50 | PROGRESS NOTE ---
DATE: 09/18/2018 SUBJECTIVE: Mr. Hogan potassium was 5.3 this morning. We gave him some IV bicarb which should bring the potassium down to some extent. He is going to have debridement done by Dr. Crabtree today. If he continues to improve, we will discharge him tomorrow to rehab. -9 cc: Ronan Vazquez MD
[2018-09-18] MEDS ORDERED: DIPRIVAN 1% ONE (11:35)
[2018-09-18] MEDS ORDERED: ZOFRAN ONE (13:03)
--- NOTE | 2018-09-18 13:34 | OPERATIVE NOTE ---
PROCEDURE DATE: 09/18/2018 PREOPERATIVE DIAGNOSIS: Sacral decubitus with necrosis. POSTOPERATIVE DIAGNOSIS: Sacral decubitus with necrosis. PROCEDURE PERFORMED: Excision and debridement of skin and soft tissue (5 x 4 cm) sacral decubitus. SURGEON: Francisco Crabtree M.D. ECONOMICS CONSULTANT: Lana. DESCRIPTION OF PROCEDURE: Satisfactory general anesthesia was achieved. The patient was placed in the decubitus position. The sacral area was prepped and draped in a sterile fashion. We sharply incised the necrotic tissue, and went circumferentially, measured 5 x 4 cm. We did go deep until we reached some viable tissue with some bleeding. That necrotic tissue was discarded. We did achieve satisfactory hemostasis with electrocautery. We irrigated out the wound copiously with warm saline. We felt that we had gotten back to viable tissue. We then placed Betadine gauze on the wound, and covered it with sterile 4x4s and ABD. He tolerated it well and was sent to the recovery room in satisfactory condition. cc: MD Ronan Cassidy MD
[2018-09-18] MEDS: LIPITOR PO SCH (20:29)
[2018-09-18] MEDS: LOVENOX SUBQ SCH (20:29)
[2018-09-18] MEDS: PATIENT'S OWN MED - CHEMO PO SCH (22:05)
[2018-09-19 05:57] LABS: CALCIUM 9.4 mg/dL (8.8-10.2); CREATININE 1.5 mg/dL (0.7-1.2)
[2018-09-19] MEDS: HUMULIN R SUBQ SCH ×4 (06:25→22:04)
--- NOTE | 2018-09-19 07:05 | INFECTIOUS DISEASE PROGRESS NO ---
DATE: 09/19/2018 PRESENT ILLNESS: The patient is status post debridement of a left necrotic Morganella infected decubitus ulcer. The patient also has a Proteus and Pseudomonas urinary tract infection. MEDICATIONS: This is day #6 of cefepime. PHYSICAL EXAMINATION: Vital Signs: Temperature is 97.3 degrees, pulse 85, respirations 21, blood pressure 94/54. General: This is an obese, elderly male. He is sleeping. He does not appear to be in any acute distress. HEENT: No drainage noted from the nose or ears. Lungs: Clear to auscultation. Cardiovascular: Regular heart rate. Thorax: The patient has a Port-A-Cath on the right side. The site is not swollen or red. Abdomen: Soft and nontender. Cardiovascular: Heart rate is regular. Extremities: The patient has bilateral leg edema. IMAGING AND LABORATORY DATA: The patient's creatinine is 1.5. GFR is 56. CBC shows a white count of 10,390, hemoglobin 9.4, and platelet count 401,000. There is no new radiographic study today. ASSESSMENT AND PLAN: The patient is status post debridement of a necrotic left buttock decubitus ulcer. The patient also has a urinary tract infection. I plan on continuing cefepime. I have ordered that a culture be obtained from the infected debrided left buttock wound with the next dressing change. COMORBIDITIES: Chronic kidney disease, metastatic prostate cancer, diabetes mellitus, anemia, and sleep apnea. cc: MD Ronan Patton MD
--- NOTE | 2018-09-19 08:17 | PROGRESS NOTE ---
DATE: 09/19/2018 Mr. Hogan is doing better. He has had debridement of the sacral decubitus yesterday. His electrolytes are stable. Blood sugar was 119. Overall condition is more stable. We will discharge him today. He is going to [facility]. cc: Ronan Vazquez MD
--- NOTE | 2018-09-19 08:36 | DISCHARGE SUMMARY ---
ADMISSION DATE: 09/08/2018 DISCHARGE DATE: 09/19/2018 HISTORY OF PRESENT ILLNESS: Mr. Hogan, who is a 68-year-old, gentleman, was admitted with acute mental status change. He had some metabolic encephalopathy. LABORATORY DATA: In the hospital when he came in actually, his hemoglobin was 8.4 with severe anemia, white count was 11.64. INR was 1.12. His potassium was 5.4, BUN was 35, creatinine 2.7, calcium was 8.5. Urinalysis revealed too numerous WBCs to count. Microbiology, urine culture grew Pseudomonas aeruginosa as well as Proteus mirabilis and Morganella morganii. Morganella morganii was isolated from the buttock. HOSPITAL COURSE: He was treated with IV cefepime 2 g every 12 hours. While he was here, he also had an ID consult with Dr. Cherry. He also was seen by a surgeon for a decubitus, who did debride the necrotic part. He is now ready to go to [facility]. He received 2 units of packed RBC transfusion while he was here, at separate times. FINAL DIAGNOSES: 1. Acute mental status change from metabolic encephalopathy. 2. Decubitus sore. 3. Acute urinary tract infection. 4. Renal failure. 5. Severe anemia. cc: Ronan Vazquez MD
[2018-09-19] MEDS: CATAPRES PO SCH ×2 (08:56→21:59)
[2018-09-19] MEDS: JANUVIA PO SCH (09:02)
[2018-09-19] MEDS: MAXIPIME 2 GM in NS 100 ML IV SCH ×2 (09:02→21:53)
[2018-09-19] MEDS: NORVASC PO SCH (09:03)
[2018-09-19] MEDS: NEURONTIN PO SCH ×2 (09:03→22:00)
[2018-09-19] MEDS: PROTONIX PO SCH ×2 (09:03→22:00)
[2018-09-19] MEDS: LIPITOR PO SCH (21:59)
[2018-09-19] MEDS: LOVENOX SUBQ SCH (21:59)
[2018-09-19] MEDS: PATIENT'S OWN MED - CHEMO PO SCH (22:00)
[2018-09-20] MEDS: HUMULIN R SUBQ SCH ×3 (05:05→18:22)
--- NOTE | 2018-09-20 07:23 | INFECTIOUS DISEASE PROGRESS NO ---
DATE: 09/20/2018 PRESENT ILLNESS: The patient is status post debridement of a left buttock necrotic decubitus ulcer infected with Morganella. The patient has completed his treatment for his urinary tract infection. MEDICATIONS: This is day 7 of cefepime. PHYSICAL EXAMINATION: Vital Signs: Temperature is 98.2 degrees, pulse 87, respirations 20, blood pressure 96/49. General: This is an obese, elderly male. He is lethargic. He is in no acute distress. Head, eyes, ears, nose and throat: There is no drainage coming from his nose or ears. Lungs: Clear to auscultation. Cardiovascular: Regular heart rate. Thorax: Patient has a right-sided Port-A-Cath. The site is not swollen or draining. Abdomen: Soft and nontender. Pelvic: The left buttock wound has a large dressing on it, the dressing is intact. Neurologic: The patient is very lethargic. There is no tremor. LAB AND RADIOLOGY: The patient's left buttock decubitus debridement grew Morganella. There is no new CBC or BMP for today. There is no new radiographic study either. ASSESSMENT AND PLAN: Patient is status post debridement of a Morganella left buttock necrotic ulcer. The patient is going to be discharged today. I have, through the computer, generated a prescription for Ceftin 500 mg p.o. every 12 hours for 2 weeks. The patient will have follow up with Dr. Francisco Crabtree, who operated on his decubitus ulcer. COMORBIDITIES: Chronic kidney disease, metastatic prostate cancer. The patient is unable to walk and has to be moved from the bed to the chair with a Matthew lift. The patient also, besides having chronic kidney disease and metastatic prostate cancer, he also has diabetes mellitus, anemia, and sleep apnea. I am signing off the patient's case now. I am available to see him on a p.r.n. basis. cc: MD Ronan Patton MD
--- NOTE | 2018-09-20 08:34 | DISCHARGE SUMMARY ---
ADMISSION DATE: 09/08/2018 DISCHARGE DATE: ADDENDUM: Mr. Hogan is doing better. His vital signs are stable. Electrolytes done yesterday were normal and blood sugar was 108. The decubitus looks well. He is probably going to [facility] today. I will follow him there. cc: Ronan Vazquez MD
--- NOTE | 2018-09-20 09:40 | PROGRESS NOTE ---
DATE: 09/20/2018 SUBJECTIVE: Mr. Hogan is doing better. Decubitus looks clean. If he has a bed at [facility], we will try to put him there for rehab. -0 cc: Ronan Vazquez MD
[2018-09-20] MEDS: NEURONTIN PO SCH (10:04)
[2018-09-20] MEDS: NORVASC PO SCH (10:04)
[2018-09-20] MEDS: MAXIPIME 2 GM in NS 100 ML IV SCH (10:04)
[2018-09-20] MEDS: JANUVIA PO SCH (10:04)
[2018-09-20] MEDS: PROTONIX PO SCH (10:04)
[2018-09-20] MEDS: CATAPRES PO SCH (10:05)
--- NOTE | 2018-09-20 12:23 | GENERAL SURGERY PROGRESS NOTE ---
DATE: 09/20/2018 Mr. Hogan is doing generally well. Bandage has been changed. He is ready to be transferred to [facility] where they will assume his wound care. I will be happy to see in the future if need be. cc: MD Ronan Cassidy MD
[2018-09-20 15:49] VITALS: BP 88/49
--- NOTE | 2018-09-27 19:28 | DISCHARGE SUMMARY ---
ADMISSION DATE: 09/08/2018 DISCHARGE DATE: 09/20/2018 DISCHARGE SUMMARY ADDENDUM: Mr. Hogan had a sacral decubitus ulcer which was a stage III ulcer. cc: Ronan Vazquez MD
== END 2018-09-20 18:25 | DRG 622 ==
LOC: SUPCPDRO → ED 15:56 → 3S 17:52 → 2N 09-19 11:36
PROVIDERS: ADMIT Internal Medicine; ATTEND Internal Medicine

== ENCOUNTER 2019-04-05 08:28 | Inpatient (IN) ==
[2019-04-05] MEDS ORDERED: KEPPRA 1,500 MG in NS 100 ML IV STA (08:37)
[2019-04-05] MEDS ORDERED: ATIVAN IV ONE ×2 (09:11→09:16)
--- NOTE | 2019-04-05 09:13 | EKG Report ---
Test Performed on : 04/05/2019 08:33:01 AM Test Reason : Stroke like symptoms Blood Pressure : / mmHG Vent. Rate : 114 BPM Atrial Rate : 114 BPM P-R Int : 146 ms QRS Dur : 078 ms QT Int : 352 ms P-R-T Axes : 028 -28 051 degrees QTc Int : 485 ms Sinus tachycardia. Low voltage QRS Borderline ECG When compared with ECG of 11-OCT-2018 14:31, No significant change was found Unconfirmed Result
[2019-04-05] MEDS ORDERED: ATIVAN ONE (09:16)
--- NOTE | 2019-04-05 09:22 | Diag Imaging Result Doc PS360 ---
CT HEAD W/O CONTRAST - 04/05/2019 INDICATION: stroke like symptoms COMPARISON: 09/08/2018 FINDINGS: There is mild cerebral atrophy and some trace periventricular white matter chronic microvascular ischemia. No intracranial mass or hemorrhage. The skull is intact. The sinuses are clear. IMPRESSION: No acute disease or change from prior. This exam was performed using automated exposure control, adjustment of mA or kV according to patient size, and/or use of iterative reconstruction technique Electronically signed by Ricky Martin 04/05/2019 9:19 AM
--- NOTE | 2019-04-05 09:50 | Diag Imaging Result Doc PS360 ---
EXAM: CHEST-PORTABLE HISTORY: seizure TECHNIQUE: Single view COMPARISON: 10/11/2018 FINDINGS: The lungs are well expanded. The heart is not enlarged. There is a right sided portacatheter. No pneumothorax. The vessels are not distended. There are no infiltrates. No effusion identified. IMPRESSION: Negative exam. Electronically signed by Emmanuel Pak 04/05/2019 9:48 AM
[2019-04-05 09:55] LABS: URINE SOURCE CATH
[2019-04-05 10:11] LABS: BILIRUBIN URINE NEGATIVE (NEGATIVE); BLOOD URINE TRACE (NEGATIVE); COLOR YELLOW; GLUCOSE URINE NEGATIVE (NEGATIVE); KETONE URINE NEGATIVE (NEGATIVE); LEUKOCYTES URINE LARGE (NEGATIVE); NITRITE URINE NEGATIVE (NEGATIVE); PROTEIN URINE TRACE mg/dL (NEGATIVE); SP GRAVITY URINE 1.019; TURBIDITY URINE HAZY (CLEAR); UROBILINOGEN URINE NORMAL (NORMAL)
[2019-04-05 10:20] LABS: BASO# 0.02 X1000 (0.0-0.2); BASO% 0.2 % (0.0-0.8); EOS# 0.12 X1000 (0.0-0.7); EOS% 1.2 % (0.0-10.0); HEMATOCRIT 31.3 % (42.0-52.0); HEMOGLOBIN 9.4 g/dL (14.0-18.0); LYMPH# 0.93 X1000 (1.2-3.4); LYMPH% 9.3 % (20.5-51.1); MCH 20.3 PG (27-31); MCV 67.7 FL (81-99); MONO# 0.75 X1000 (0.11-0.59); MONO% 7.5 % (1.7-9.3); NEUT# 8.06 X1000 (1.4-6.5); NEUT% 80.8 % (42.2-75.2); PLT 514 X1000 (130-400); RBC 4.62 XMIL (4.7-6.1); RDW 20.6 % (11.5-14.5); WBC 9.98 X1000 (4.8-10.8)
[2019-04-05 10:23] LABS: ALB/GLOB RATIO 0.8; ALBUMIN 3.1 g/dL (3.5-5.0); CALCIUM 9.8 mg/dL (8.8-10.2); CREATININE 1.6 mg/dL (0.7-1.2); MAGNESIUM 2.3 mg/dL (1.5-2.7); POTASSIUM 5.3 mmol/L (3.5-5.1); TOTAL BILIRUBIN 0.42 mg/dL (0.20-1.00)
[2019-04-05 10:25] LABS: UR AMPHETAMINES QUAL NONE DETECTED (NONE DETECT); UR BARBITUATES QUAL NONE DETECTED (NONE DETECT); UR BENZODIAZEPIN QUAL NONE DETECTED (NONE DETECT); UR CANNABINOIDS QUAL NONE DETECTED (NONE DETECT); UR COCAINE QUAL NONE DETECTED (NONE DETECT); UR METHADONE QUAL NONE DETECTED (NONE DETECT); UR OPIATES QUAL NONE DETECTED (NONE DETECT); UR OXYCODONE QUAL NONE DETECTED (NONE DETECT); UR PCP QUAL NONE DETECTED (NONE DETECT)
[2019-04-05 10:39] LABS: UR EPITHELIAL CELLS <10 /HPF (<10); URINE BACTERIA 4+ /HPF; URINE RBC <10 /HPF (<10); URINE WBC TNTC /HPF (<10)
[2019-04-05 10:44] LABS: INR 1.01; PROTIME 13.4 Seconds (11.0-16.0)
[2019-04-05 10:45] LABS: PTT 38.5 Seconds (22.3-41.8)
[2019-04-05 10:50] LABS: URINE YEAST NONE SEEN
[2019-04-05] MEDS ORDERED: NS 1,000 ML IV ONE (11:51)
[2019-04-05] MEDS ORDERED: VANCOMYCIN 1 GM/NS 1 GM/250 ML IVPB IV ONE (11:51)
[2019-04-05] MEDS ORDERED: MAXIPIME 1 GM in NS 50 ML IV ONE (11:51)
[2019-04-05] MEDS ORDERED: ASPIRIN PR ONE (11:53)
--- NOTE | 2019-04-05 11:59 | PROVIDER DOCUMENTATION ---
This chart was entered by Lashon Love Scribe, acting as scribe for Oskar Posada MD. HPI-Neurological Disorder - General Chief Complaint: Seizure Stated Complaint: seizure Time Seen by Provider: 04/05/19 08:31 Source: patient, family (), EMS ([facility]) Allergies/Adverse Reactions: Patient Allergies Allergy/AdvReac Type Severity Reaction Status Date / Time levofloxacin [From Levaquin] Allergy Intermediate SWELLING Verified 04/05/19 08:50 Home Medications: Home Medication List Medication Instructions Recorded Confirmed Last Taken Type Atorvastatin Calcium [Lipitor] 20 mg PO QHS 02/10/15 04/05/19 09/25/16 20:00 History Enzalutamide [Xtandi] 160 mg PO BID 02/10/15 04/05/19 03/05/15 21:00 History Amlodipine Besylate [Norvasc] 5 mg PO DAILY 01/22/18 04/05/19 Unknown History Gabapentin 300 mg PO BID 01/22/18 04/05/19 Unknown History Sitagliptin [Januvia] 100 mg PO DAILY tab 11/01/18 04/05/19 Unknown Rx Fluconazole 100 mg PO DIRECTED 04/05/19 04/05/19 Unknown History Sulfamethoxazole/Trimethoprim 1 ea PO BID 04/05/19 04/05/19 Unknown History [Bactrim Ds Tablet] - History of Present Illness-Neuro Nature of Presenting Problem: 69 yom [facility] with witnessed seizure this am. clavin pt has had seizure hx since 2005 after dx of prostate CA. pt last seizure was 1 month prior and feels like it was due to exertion more then baseline. witnessed x3 seizures at home and called 911, when ems aos pt had another and was gived 2mg Versed which seemed to calm seizure activity. pt then went to CT and had another witnessed seizure length 2 minutes and is now in the er room postictal. calvin pt has been on recent abx due to UTI and has indwelling rowell cath. Severity: reports: moderate Onset/Duration: reports: this morning Timing: reports: intermittent Context: reports: seizure activity Character of Altered Mental Status: reports: confused, seizure activity New weakness or altered sensation location:: reports: none Cognitive Baseline: alert, oriented x3 Gait Baseline: walks without assistance Associated Symptoms: reports: seizures. denies: headache, fever/chills, nausea, vomiting Similar Symptoms Previously?: Yes (seizure hx since 2005) Recently seen or treated by another doctor?: No - Seizure First time to have a seizure?: No Witnessed seizure?: Yes ( and ems) How many seizure episodes?: 4 Duration of episode? (mins): 2 Episode Frequency: occasional episodes Status Epilepticus: No Preceding symptoms/context:: other (on abx for UTI recently) Character of Seizure: reports: generalized shaking all over Post-ictal Symptoms: reports: confusion, speech difficulty Seizure related injury: none Review of Systems - Adult - REVIEW OF SYSTEMS - ADULT ROS:: ROS per family () Constitutional: denies: chills, fever Eyes: reports: no symptoms reported Ears, Nose, Mouth & Throat: reports: no symptoms reported Cardiovascular: denies: chest pain, palpitations Respiratory: denies: cough, shortness of breath, wheezing Gastrointestinal: denies: diarrhea, nausea, vomiting Genitourinary: reports: see HPI, frequent UTI's Musculoskeletal: reports: no symptoms reported Integumentary: reports: no symptoms reported Neurological: reports: see HPI, seizure. denies: headache/migraines Psychiatric: reports: no symptoms reported Endocrine: reports: no symptoms reported Hematologic/Lymphatic: reports: no symptoms reported Allergic/Immunologic: reports: no symptoms reported All Other Systems: Reviewed and Negative Past History - Adult - PAST MEDICAL HISTORY-ADULT Review of Records: reports: Old Records Reviewed, Nursing Assessment Review, Medications Reviewed, Social history reviewed & non-contributory. Major Childhood Illnesses: reports: denies history Cardiovascular: reports: HTN Respiratory: reports: sleep apnea Gastrointestinal: reports: cancer (prostate) Genitourinary: reports: cancer (Left Kidney), dialysis, chronic UTI's, prostate cancer, other (pt has indwelling rowell cath) Musculoskeletal: reports: neck/back injury, spinal fracture Neurological: reports: Seizures/Epilepsy (2006) Psychiatric: reports: denies history Endocrine/Immune: reports: Diabetes Diabetes Type: Type 2 Other Conditions: reports: denies history - PRIOR SURGERIES/PROCEDURES Surgical/Procedure History: reports: recent surgery (Left nephrectomy), joint replacement (Total hip) - PRIOR HOSPITALIZATIONS Prior Hospitalizations: reports: for other non-related - IMMUNIZATION STATUS Childhood Immunizations: See Nurse Assessment Flu Vaccine: See Nurse Assessment - FAMILY HISTORY Family History: reviewed, not pertinent - SOCIAL HISTORY Smoking: denies Substance Use: denies Living Situation: family Physical Exam- Neurological - Physical Exam-Neuro Initial Vital Signs Reviewed: Yes General Appearance: other (postictal confused) Eye Exam: bilateral eye: normal inspection, PERRL, EOMI HENMT: moist mucous membranes Head Injury: no evidence of injury Neck: full range of motion, normal inspection Respiratory: chest non-tender, lungs clear, normal breath sounds Cardiovascular: normal peripheral pulses, tachycardia (115) Abdominal Exam: non tender, soft Lymphatic: no adenopathy Extremity: normal inspection, normal capillary refill, 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 negative: normal speech Integumentary: normal color, normal turgor, warm/dry Psych/Mental Status: disoriented x 3 - Glascow Coma Scale Best Eye Response: (2) open to pain Best Verbal Response: (2) incomprehsible sounds Best Motor Response: (5) localizes to pain Total Glascow Score: 9 Progress - PLAN OF CARE/RESULTS Progress/Plan/Lab Results: Vital Signs - 8 hr 04/05/19 08:44 04/05/19 09:19 04/05/19 10:47 Temperature 97.0 F L 97.5 F L Pulse Rate 115 H 102 H 108 H Respiratory Rate 18 20 20 Blood Pressure 129/67 137/70 138/66 O2 Sat by Pulse Oximetry 98 97 98 Laboratory Results - last 24 hr 04/05/19 04/05/19 04/05/19 08:41 09:36 09:36 WBC RBC Hgb Hct MCV MCH MCHC RDW Std Deviation Plt Count MPV Immature Gran % (Auto) Neut % (Auto) Lymph % (Auto) [place] % (Auto) Eos % (Auto) Baso % (Auto) Immature Gran # (Auto) Neut # (Auto) Lymph # (Auto) [place] # (Auto) Eos # (Auto) Baso # (Auto) PT INR PTT (Actin FS) Sodium 135 L Potassium 5.3 H Chloride 99 Carbon Dioxide 15 L Anion Gap 21 BUN 24 H Creatinine 1.6 H Estimated GFR/1.73 m2 52 BUN/Creatinine Ratio 15 Glucose 115 H POC Glucose 114 H Calculated Osmolality 275 Calcium 9.8 Magnesium 2.3 Total Bilirubin 0.42 AST 13 ALT 6 L Alkaline Phosphatase 858 H Troponin T High Sens Total Protein 7.0 Albumin 3.1 L Globulin 3.9 Albumin/Globulin Ratio 0.8 Plasma Lactate 3.4 H Urine Source Urine Color Urine Turbidity Urine pH Ur Specific [place] Urine Protein Ur Glucose (Stick) Ur Ketones (Stick) Urine Blood Urine Nitrite Urine Bilirubin Urobilinogen Dipstick Urine Leukocytes Urine WBC (Auto) Urine RBC (Auto) U Epithel Cells (Auto) Urine Bacteria (Auto) Urine Crystals Small Round Cells Urine Casts Urine Yeast-like Cells Urine Opiates Screen Ur Oxycodone Screen Ur Methadone, Qual Ur Barbiturates Screen Ur Phencyclidine Scrn Ur Amphetamines Screen U Benzodiazepines Scrn Urine Cocaine Screen U Cannabinoids Screen 04/05/19 04/05/19 04/05/19 09:36 09:36 09:36 WBC 9.98 RBC 4.62 L Hgb 9.4 L Hct 31.3 L MCV 67.7 L MCH 20.3 L MCHC 30.0 L RDW Std Deviation 20.6 H Plt Count 514 H MPV 8.0 Immature Gran % (Auto) 1.0 H Neut % (Auto) 80.8 H Lymph % (Auto) 9.3 L [place] % (Auto) 7.5 Eos % (Auto) 1.2 Baso % (Auto) 0.2 Immature Gran # (Auto) 0.10 H Neut # (Auto) 8.06 H Lymph # (Auto) 0.93 L [place] # (Auto) 0.75 H Eos # (Auto) 0.12 Baso # (Auto) 0.02 PT INR PTT (Actin FS) Sodium Potassium Chloride Carbon Dioxide Anion Gap BUN Creatinine Estimated GFR/1.73 m2 BUN/Creatinine Ratio Glucose POC Glucose Calculated Osmolality Calcium Magnesium Total Bilirubin AST ALT Alkaline Phosphatase Troponin T High Sens 432 H* Total Protein Albumin Globulin Albumin/Globulin Ratio Plasma Lactate Urine Source Urine Color Urine Turbidity Urine pH Ur Specific [place] Urine Protein Ur Glucose (Stick) Ur Ketones (Stick) Urine Blood Urine Nitrite Urine Bilirubin Urobilinogen Dipstick Urine Leukocytes Urine WBC (Auto) Urine RBC (Auto) U Epithel Cells (Auto) Urine Bacteria (Auto) Urine Crystals Small Round Cells Urine Casts Urine Yeast-like Cells Urine Opiates Screen NONE DETECTED Ur Oxycodone Screen NONE DETECTED Ur Methadone, Qual NONE DETECTED Ur Barbiturates Screen NONE DETECTED Ur Phencyclidine Scrn NONE DETECTED Ur Amphetamines Screen NONE DETECTED U Benzodiazepines Scrn NONE DETECTED Urine Cocaine Screen NONE DETECTED U Cannabinoids Screen NONE DETECTED 04/05/19 04/05/19 09:36 09:36 WBC RBC Hgb Hct MCV MCH MCHC RDW Std Deviation Plt Count MPV Immature Gran % (Auto) Neut % (Auto) Lymph % (Auto) [place] % (Auto) Eos % (Auto) Baso % (Auto) Immature Gran # (Auto) Neut # (Auto) Lymph # (Auto) [place] # (Auto) Eos # (Auto) Baso # (Auto) PT 13.4 INR 1.01 PTT (Actin FS) 38.5 Sodium Potassium Chloride Carbon Dioxide Anion Gap BUN Creatinine Estimated GFR/1.73 m2 BUN/Creatinine Ratio Glucose POC Glucose Calculated Osmolality Calcium Magnesium Total Bilirubin AST ALT Alkaline Phosphatase Troponin T High Sens Total Protein Albumin Globulin Albumin/Globulin Ratio Plasma Lactate Urine Source CATH Urine Color YELLOW Urine Turbidity HAZY Urine pH 6.0 Ur Specific [place] 1.019 Urine Protein TRACE A Ur Glucose (Stick) NEGATIVE Ur Ketones (Stick) NEGATIVE Urine Blood TRACE A Urine Nitrite NEGATIVE Urine Bilirubin NEGATIVE Urobilinogen Dipstick NORMAL Urine Leukocytes LARGE A Urine WBC (Auto) TNTC A Urine RBC (Auto) <10 U Epithel Cells (Auto) <10 Urine Bacteria (Auto) 4+ Urine Crystals Not Reportable Small Round Cells Not Reportable Urine Casts Not Reportable Urine Yeast-like Cells NONE SEEN Urine Opiates Screen Ur Oxycodone Screen Ur Methadone, Qual Ur Barbiturates Screen Ur Phencyclidine Scrn Ur Amphetamines Screen U Benzodiazepines Scrn Urine Cocaine Screen U Cannabinoids Screen Orders Category Date Time Status Cardiac Monitoring DIRECTED Care 04/05/19 08:36 Active Finger Stick Blood Sugar (ED) DIRECTED Care 04/05/19 08:36 Active NEWS Score 2-4:Order NEWS Lactate Series NOW Care 04/05/19 08:47 Active Oxygen Therapy- ED Nursing DIRECTED Care 04/05/19 08:36 Active Saline Loc NOW Care 04/05/19 08:36 Active CHEST-PORTABLE [RAD] Stat Exams 04/05/19 08:[address] HEAD W/O CONTRAST [CT] Stat Exams 04/05/19 08:36 Completed BLOOD CULTURE [BLDCUL] Stat Lab 04/05/19 09:36 Results CBC WITH ELECTRONIC DIFF [HEME] Stat Lab 04/05/19 09:36 Completed COMPREHENSIVE METABOLIC PANEL [CHEM] Stat Lab 04/05/19 09:36 Completed LACTATE, PLASMA [CHEM] Lab 04/05/19 12:00 Uncollected LACTATE, PLASMA [CHEM] Lab 04/05/19 15:00 Uncollected LACTATE, PLASMA [CHEM] Stat Lab 04/05/19 09:36 Completed MAGNESIUM [CHEM] Stat Lab 04/05/19 09:36 Completed PROTIME WITH INR [COAG] Stat Lab 04/05/19 09:36 Completed PTT [COAG] Stat Lab 04/05/19 09:36 Completed TROPONIN T HIGH SENSITIVITY Stat Lab 04/05/19 09:36 Completed URINALYSIS W/POSS RFLX CULT [URINALYSIS] Stat Lab 04/05/19 09:36 Completed URINE DRUG SCREEN Stat Lab 04/05/19 09:36 Completed URINE MANUAL MICROSCOPIC [URINALYSIS] Stat Lab 04/05/19 09:36 Completed 0.9% Sodium Chloride Inj [Ns] 1,000 ml Med 04/05/19 11:51 Active IV 999 mls/hr Aspirin Med 04/05/19 11:53 Once 300 mg HI NOW ONE CefEPIME [Maxipime] 1 gm Med 04/05/19 11:51 Active 0.9% Sodium Chloride Inj [Ns] 50 ml IV NOW Levetiracetam [Keppra] 1,500 mg Med 04/05/19 08:37 Discontinued 0.9% Sodium Chloride Inj [Ns] 100 ml IV ONCE Lorazepam [Ativan] Med 04/05/19 09:16 Discontinued 1 mg IV NOW ONE Lorazepam [Ativan] Med 04/05/19 09:16 Discontinued 2 mg .ROUTE .STK-MED ONE Lorazepam [Ativan] Med 04/05/19 09:11 Discontinued 2 mg IV NOW ONE Vancomycin 1 gm/Ns Med 04/05/19 11:51 Active 1 gm in 250 ml IV NOW EKG [EKG] Stat Ther 04/05/19 08:36 Draft Result Diagrams: 04/05/19 09:36 04/05/19 09:36 - REASSESSMENT Reassessment #1 Time Reassessed: 10:01 Status: other (pt is postictal again after 4th seizure lasting 2min in CT) Reassessment #2 Time Reassessed: 11:54 Status: improving (No further seizure activity. give ivf bolus, asa pr 300mg for elevated trop (old chart reviewed, has elevated troponin at similar levels chronically), iv maxepime/vanc for complicated UTI) - EKG 1 Time of EKG reading by physician:: 08:33 EKG Read and Signed by:: Oskar Posada EKG Interpretation (*Must complete 3 of following elements*): Normal Rate: 114 Rhythm: sinus alvaro [place]: normal QRS: other (artifact present) HI Interval: normal ST Wave: normal - XRAY 1 XRAY: Bilateral XRAY Study: Chest Impression: See EMR Report (EXAM: CHEST-PORTABLE HISTORY: seizure TECHNIQUE: Single view COMPARISON: 10/11/2018 FINDINGS: The lungs are well expanded. The heart is not enlarged. There is a right sided portacatheter. No pneumothorax. The vessels are not distended. There are no infiltrates. No effusion identified. IMPRESSION: Negative exam. Electronically signed by Emmanuel Pak 04/05/2019 9:48 AM 04/05/19 0948 Interpreting Physician: Emmanuel Pak MD Dictated Date/Time: 04/05/19 0947 cc: Oskar Posada MD ; Ronan Vazquez MD) - CT/MRI 1 CT Study: Head Impression: See EMR Report (CT HEAD W/O CONTRAST - 04/05/2019 INDICATION: stroke like symptoms COMPARISON: 09/08/2018 FINDINGS: There is mild cerebral atrophy and some trace periventricular white matter chronic microvascular ischemia. No intracranial mass or hemorrhage. The skull is intact. The sinuses are clear. IMPRESSION: No acute disease or change from prior. This exam was performed using automated exposure control, adjustment of mA or kV according to patient size, and/or use of iterative reconstruction technique Electronically signed by Ricky Martin 04/05/2019 9:19 AM 04/05/19 09 Interpreting Physician: Ricky Martin MD Dictated Date/Time: 04/05/1918 cc: Oskar Posada MD; Ronan Vazquez MD) - CONSULTS/PCP/HOSPITALIST Notification #1 *Consult/PCP/Hospitalist*: Luca Time Discussed: 11:57 Reason/Comments: requests consult to geo and icu admission Consult Disposition: Will see in ED, Admit Departure - Departure Date of Disposition Decision: 04/05/19 Time of Disposition Decision: 11:57 DIAGNOSIS: Status epilepticus, Elevated troponin I measurement, Complicated UTI (urinary tract infection) Disposition: ADMITTED INPATIENT 09 Certified Medical Emergency: Emergent Condition: Serious Referrals and Follow-Ups: Ronan Vazquez MD [Primary Care Provider] - - Critical Care Note This patient required my direct & personal management of CC.: Yes Total Time (mins): 55 Critical Care Statement: This patient required my direct personal management to treat or rule out processes, the absence of which, could potentiallly result in sudden, clinically significant life or limb threatening deterioration. Attestation - Physician/ DARYN Attestation Patient care was provided by Advanced Practice Provider:: No The physician spent face to face time with patient:: Yes Advanced Practice Provider documentation review:: Supervising physician onsite and consulted in the evaluation and care of this patient. The physician did have a face to face encounter with the patient. This chart was documented by the indicated scribe, (Lashon Love Scribe) and accurately reflects the services I performed and decisions made by me, Oskar Posada MD, as attested by the provider's signature.
[2019-04-05] MEDS ORDERED: DUONEB (A & A) INH PRN (12:08)
[2019-04-05] MEDS ORDERED: ZOFRAN PO PRN (12:08)
[2019-04-05] MEDS ORDERED: TYLENOL PO PRN (12:08)
[2019-04-05] MEDS ORDERED: ATIVAN IV PRN (12:12)
[2019-04-05] MEDS: NS 1,000 ML IV ONE (14:24)
[2019-04-05] MEDS: MAXIPIME 1 GM in NS 50 ML IV SCH (14:55)
[2019-04-05] MEDS: KEPPRA 1,000 MG/NS 1,000 MG/100 ML IVPB IV SCH (15:32)
--- NOTE | 2019-04-05 18:34 | HISTORY AND PHYSICAL ---
CHIEF COMPLAINT: Multiple seizures. HISTORY OF PRESENT ILLNESS: A 69-year-old gentleman was in his usual state of health at home and the patient had a seizure, which was generalized tonic-clonic. Patient had at least 2 to 3 seizures at home. The patient was brought to the emergency room. While in the CT scan, the patient had another generalized tonic-clonic seizure and patient was postictal after that. According to , the patient had a hit his head, about a week ago while he was going to see his oncologist. Though he was not complaining of any headache. No fever or chills. No typical chest pain, palpitation, orthopnea, PND. The patient does have chronic low back pain. Had multiple back surgeries done. The patient had a pressure sore in the back. The patient's ambulation is limited. Patient is getting recurrent UTI. Currently, he is on antibiotics for UTI. No diarrhea, blood or mucus in the stool. No further history available at this time. ALLERGIES: Levaquin. MEDICATIONS: Xtandi, fluconazole, Neurontin, Bactrim DS, Norvasc, Lipitor, Januvia. PAST MEDICAL HISTORY: Significant for hypertension, hyperlipidemia, sacral decubitus. The patient had bilateral hip surgery for hip prosthesis, left-sided nephrectomy for malignancy, history of prostate cancer, hyperlipidemia, gastritis, osteoarthritis. The patient had back 2 back surgeries done. FAMILY HISTORY: Noncontributory. REVIEW OF SYSTEMS: As per HPI. PHYSICAL EXAMINATION: GENERAL: Elderly gentleman. The patient is sedated as he had Ativan after seizure. VITAL SIGNS: Blood pressure 110/59, pulse 96, respiration 21, temperature 97.7 degrees. SKIN: Normal turgor. No rash or petechiae. HEENT: Head atraumatic, normocephalic. Pupils small but reacting to light. Ears and nose benign. NECK: Supple. No JVD, thyromegaly or lymphadenopathy. CHEST: Bibasilar crepitation. Decreased air entry both the bases. CARDIOVASCULAR: S1 and S2 heard. ABDOMEN: Soft, globular. Bowel sounds present. Obese. Difficult to comment organomegaly or mass. Bilateral minimal leg swelling. Patient does have decubitus on the lower back and sacrum. LABORATORY DATA: Done today, hemoglobin 9.4, hematocrit 31.3. WBC count 9.98, platelet count 514,000. PT/INR 1.01, PTT 38.5. High sensitivity troponin 432. Alkaline phosphatase 858. BUN was 24, creatinine 1.6. Urinalysis did reveal too numerous to count WBC. Large leukocytes. The patient medical problems. The patient admitted with seizure disorder. Urinalysis did reveal UTI but patient does have indwelling catheter, metastatic prostate cancer, history of kidney cancer and nephrectomy, hypertension, hyperlipidemia, chronic pain. We did get neurology consult and Dr. Gomez evaluated the patient. Recommendation noted. PLAN: Close monitoring, seizure precaution, IV antibiotics. Overall plan discussed with the patient's and prognosis discussed with . His EKG did not reveal any acute ST-T wave changes. I am going to repeat blood work and chest x-ray in the morning. cc: Alexander Andrade MD
--- NOTE | 2019-04-05 19:11 | NEUROLOGY CONSULTATION ---
DATE: 04/05/2019 Mr. Hogan is 69 years old and there is report of several seizures this morning. History from his attentive is that he seemed well last night. This morning, she called to wake him up and he seemed a little bit sluggish. Soon after that, she noticed him to become unresponsive with arms extended rigidly and then some generalized jerking in the arms. Teeth were clenched. Following that, he seemed to be in deep sleep. She called for an ambulance. Ambulance personnel witnessed apparent generalized seizure. He was brought to the hospital. In the hospital, he had seizure witnessed by medical personnel. He received lorazepam 1 mg once and levetiracetam 1500 mg once. He has not had clinically apparent seizure or altered awareness in the last several hours. reports similar episode with generalized features occurring once approximately a year ago. She attributed that to something upsetting him around . She believes he had a 2nd milder episode around [place]ime a few months ago. She believes 3rd episode was early this morning. History sounds like 4 episodes of seizure over period of about 2 hours this morning. The patient and report he does not use ethanol. He has not used illicit drugs. He used to take tramadol but stopped that a few weeks ago and has been using hydrocodone in recent weeks. He has not had benzodiazepine medicines. He had taken gabapentin regularly for several years and ran out of that a few weeks ago, waiting on mail order pharmacy to provide next bottle of gabapentin. He started Diflucan about a month ago and Bactrim about a week ago. does not recall him taking Diflucan in the past. He has taken Bactrim before without problems. There is reported history of back problems and surgery twice in 2016. reports he had some weakness in the legs which seemed worse after surgery. He was making some progress with physical therapy, getting stronger, walking some without assistance. Then, he was hospitalized with small bowel obstruction in January 2018. Hospital record shows that resolved without surgery. reports he seemed weak all over then and did not recover ability to walk unassisted. He has not been able to walk on his own since then. He depends on wheelchair and scooter at home. reports inadvertent head injury when brother was rolling him on his wheelchair about a month ago. There was not history of unconsciousness or altered awareness then. He did not seem injured then. There is not history of other head injury. Specifically, there is not history of head injury prior to the 1st apparent seizure episode about a year ago. Workup here includes noncontrast CT of the head showing nothing remarkable. Lab shows anemia, sodium 135, BUN 24, blood sugar 115. Urine drug screen was all negative. He has been afebrile. Heart rate has been 100s initially and 90s recently. Systolic blood pressures have been 120s- 130s. On exam, Mr. Hogan is awake, alert, attentive. His answers are slow. Speech is slow but easily understood. Language function is intact on brief bedside testing. Later in conversation, he seemed to have trouble finding words. He reports no recollection of the events of this morning and of coming to the hospital. He identified the hospital correctly by name. I did not test his cognitive function. Head and neck are unremarkable. There is no meningismus. He has full visual santizo to confrontational finger counting. Facial motility is symmetric. Gag is intact. Tongue is midline. He has good power in the arms and hands. Muscle tone is symmetric in the arms. He did well on nqxwer-by-ksum testing bilaterally. He reports good pinprick appreciation over the hands. He reports diminished pinprick appreciation over the legs with inconsistent sensory level approximately T12 on the left and less consistently T10-T12 on the right. He demonstrated no definite voluntary muscle contraction in either leg. Muscle tone is reduced in each leg. Plantar response is silent bilaterally. Reflexes are absent at the knees and ankles bilaterally. IMPRESSION: 1. History sounds like 4 seizures today and possibility that onset of seizure disorder was a year ago. Reason for seizure in this setting is statistically most likely ischemic infarction but we do not have clear history of that. He has not had head injury or other neurologic event that would likely predispose him to developing seizure disorder. He has not used ethanol. Tramadol can be associated with seizure, but he has not had that in 3 weeks and he did use tramadol chronically over several years before 1st apparent seizure was noted. Seizure has been reported with Diflucan but he was not taking Diflucan when he had the reported initial episode last year. I do not see anything obvious in the metabolic profile to account for seizure. There is no evidence of central nervous system infection. 2. 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 I believe this problem is chronic and does not have to be attended urgently here. There may have been extensive workup prior to this presentation. believes this has been connected to his metastatic prostate cancer. RECOMMENDATIONS: I agree with current seizure management. He has been stable over several hours and seems to be approaching his normal state of alertness. I would continue levetiracetam and follow renal function. We may need to reduce the levetiracetam dose or increase the dose interval if renal function continues impaired. Eventually, we might choose a different medicine for seizure control. EEG will be helpful when available but is not an option over the weekend here. I do not think we need further imaging urgently but, depending on clinical course and results of other workup, we might need to consider brain MRI later. Thanks for asking Neurology to see Mr. Hogan. cc: MD Alexander Amaya III, MD MTDD
[2019-04-05] MEDS: LIPITOR PO SCH (20:42)
[2019-04-05] MEDS: NEURONTIN PO SCH (20:42)
[2019-04-06] MEDS: MAXIPIME 1 GM in NS 50 ML IV SCH ×2 (02:43→12:26)
[2019-04-06] MEDS: NS 1,000 ML IV ONE (02:44)
[2019-04-06] MEDS: KEPPRA 1,000 MG/NS 1,000 MG/100 ML IVPB IV SCH ×2 (03:19→16:15)
[2019-04-06 04:26] LABS: BASO# 0.01 X1000 (0.0-0.2); BASO% 0.1 % (0.0-0.8); EOS# 0.19 X1000 (0.0-0.7); EOS% 2.4 % (0.0-10.0); HEMATOCRIT 26.8 % (42.0-52.0); HEMOGLOBIN 7.9 g/dL (14.0-18.0); IMM GRAN# 0.08 X1000 (0.0-0.04); LYMPH# 0.91 X1000 (1.2-3.4); LYMPH% 11.6 % (20.5-51.1); MCH 20.4 PG (27-31); MCHC 29.5 g/dL (33-37); MCV 69.3 FL (81-99); MONO# 0.75 X1000 (0.11-0.59); MONO% 9.5 % (1.7-9.3); MPV 8.3 FL (7.4-10.4); NEUT# 5.92 X1000 (1.4-6.5); NEUT% 75.4 % (42.2-75.2); PLT 441 X1000 (130-400); RBC 3.87 XMIL (4.7-6.1); RDW 21.3 % (11.5-14.5); WBC 7.86 X1000 (4.8-10.8)
[2019-04-06 04:59] LABS: HEMOGLOBIN A1C 5.4 % (4.8-6.0)
[2019-04-06] MEDS: NEURONTIN PO SCH ×2 (08:22→20:26)
[2019-04-06] MEDS: JANUVIA PO SCH (08:22)
[2019-04-06 08:55] LABS: AGAP 15; ALB/GLOB RATIO 0.7; ALBUMIN 2.8 g/dL (3.5-5.0); ALKALINE PHOSPHATASE 814 U/L (32-122); BUN 18 mg/dL (8-22); CALCIUM 9.3 mg/dL (8.8-10.2); CHLORIDE 105 mmol/L (98-107); CHOLESTEROL 139 mg/dL (0-200); COSMO 274; CREATININE 1.3 mg/dL (0.7-1.2); ESTIMATED GFR > 60; GLUCOSE 76 mg/dL (70-104); GOT 15 U/L (10-34); GPT 5 U/L (10-44); HDL 28 mg/dL (35-55); LDL 77 mg/dL; LIPASE 22 U/L (13-60); MAGNESIUM 2.2 mg/dL (1.5-2.7); PHOSPHORUS 3.9 mg/dL (2.7-4.5); POTASSIUM 4.6 mmol/L (3.5-5.1); SODIUM 137 mmol/L (136-145); TCO2 17 mmol/L (25-35); TOTAL BILIRUBIN 0.42 mg/dL (0.20-1.00); TOTAL PROTEIN 6.6 g/dL (6.3-8.3); TRIGLYCERIDES 168 mg/dL (39-160); VLDL 34 mg/dL
[2019-04-06] MEDS ORDERED: NORVASC PO SCH (09:00)
[2019-04-06 09:11] LABS: FREE T4 1.04 ng/dL (0.93-1.70); TSH 1.56 uIUmL (0.27-4.20)
[2019-04-06 09:27] LABS: ANISOCYTOSIS 2+; EOS 2 % (1-10); HYPOCHROM 2+; LYMPHS 6 % (21-51); MICROCYTOSIS 2+; MONO 8 % (1-9); SEGS 84 % (42-75)
[2019-04-06 09:28] LABS: LARGE PLATELETS 1+; POLYCHROM 1+; TARGET CELLS OCCASIONAL
--- NOTE | 2019-04-06 10:18 | PROGRESS NOTE ---
DATE: 04/06/2019 SUBJECTIVELY: Mr. Hogan is doing fair. The patient is much more alert, awake, following simple commands. No high-grade fever or chills. No nausea or vomiting. Oral intake is poor. The patient admitted with multiple seizure episodes. Appreciate Dr. Gomez's help managing this patient. OBJECTIVE: Vital signs: Blood pressure is low-normal. Neck: Supple. No JVD. Lungs: Bibasilar crepitation. Heart: S1 and S2 heard. Abdomen: Soft, globular. Bowel sounds present. Back: Patient does have sacral decubitus. Central nervous system: Alert, awake. Uncooperative for detailed exam though following simple commands very well. LABORATORY DATA: Done today, hemoglobin 7.9, hematocrit 26.8, WBC count 7.86, platelet count 441,000. Electrolytes: BUN 18, creatinine 1.3. High-sensitive troponin 448. PROBLEM LIST: Includes: 1. Multiple seizures. 2. Decubitus on the back. 3. Recurrent urinary tract infection. 4. Metastatic prostate cancer. 5. Elevated troponin. PLAN: We will continue current treatment, close observation. Advance diet. cc: Alexander Andrade MD
[2019-04-06] MEDS: LIPITOR PO SCH (20:25)
[2019-04-07] MEDS: MAXIPIME 1 GM in NS 50 ML IV SCH ×2 (01:08→13:45)
[2019-04-07] MEDS: KEPPRA 1,000 MG/NS 1,000 MG/100 ML IVPB IV SCH ×2 (02:16→15:46)
[2019-04-07] MEDS ORDERED: VASELINE TOP PRN (02:51)
[2019-04-07 04:56] LABS: AGAP 14; ALB/GLOB RATIO 0.6; ALBUMIN 2.6 g/dL (3.5-5.0); ALKALINE PHOSPHATASE 829 U/L (32-122); BUN 17 mg/dL (8-22); CALCIUM 8.8 mg/dL (8.8-10.2); CHLORIDE 109 mmol/L (98-107); COSMO 278; CREATININE 1.3 mg/dL (0.7-1.2); ESTIMATED GFR > 60; GLUCOSE 75 mg/dL (70-104); GOT 16 U/L (10-34); GPT 6 U/L (10-44); POTASSIUM 4.2 mmol/L (3.5-5.1); SODIUM 139 mmol/L (136-145); TCO2 16 mmol/L (25-35); TOTAL BILIRUBIN 0.39 mg/dL (0.20-1.00); TOTAL PROTEIN 7.1 g/dL (6.3-8.3)
[2019-04-07 05:20] LABS: BASO# 0.03 X1000 (0.0-0.2); BASO% 0.3 % (0.0-0.8); EOS# 0.23 X1000 (0.0-0.7); EOS% 2.6 % (0.0-10.0); HEMOGLOBIN 9.2 g/dL (14.0-18.0); IMM GRAN# 0.07 X1000 (0.0-0.04); IMM GRAN% 0.8 % (0.0-0.5); LYMPH# 1.05 X1000 (1.2-3.4); MCH 20.6 PG (27-31); MCHC 29.7 g/dL (33-37); MCV 69.5 FL (81-99); MONO# 0.84 X1000 (0.11-0.59); MONO% 9.6 % (1.7-9.3); MPV 8.3 FL (7.4-10.4); NEUT# 6.52 X1000 (1.4-6.5); NEUT% 74.7 % (42.2-75.2); PLT 410 X1000 (130-400); RBC 4.46 XMIL (4.7-6.1); RDW 21.4 % (11.5-14.5); WBC 8.74 X1000 (4.8-10.8)
--- NOTE | 2019-04-07 07:54 | Diag Imaging Result Doc PS360 ---
EXAM: CHEST-1 VIEW - 04/07/2019 HISTORY: sob TECHNIQUE: Portable chest one view COMPARISON: 03/28/2019 FINDINGS: Heart size is normal. There is mild prominence of infrahilar markings. The remainder the lungs appear clear. There has been development of a small right pleural effusion. There is no evidence of pneumothorax. Central venous catheter remains in place. IMPRESSION: Mild prominence of infrahilar markings. Small right pleural effusion. Electronically signed by Guy Perkins 04/07/2019 7:52 AM
[2019-04-07] MEDS: NEURONTIN PO SCH ×2 (08:14→20:45)
[2019-04-07] MEDS: JANUVIA PO SCH (08:14)
[2019-04-07] MEDS ORDERED: NORVASC PO SCH (09:00)
[2019-04-07 09:09] LABS: BANDS 2 % (0-1); EOS 2 % (1-10); LYMPHS 10 % (21-51); MONO 10 % (1-9); NRBC 1 % (0-0); SEGS 76 % (42-75)
[2019-04-07 09:10] LABS: ANISOCYTOSIS 2+; HYPOCHROM 2+; MICROCYTOSIS 3+; POIKILOCYTOSIS 2+; TARGET CELLS 1+
--- NOTE | 2019-04-07 13:05 | Diag Imaging Result Doc PS360 ---
EXAM: CT ABDOMEN/PELVIS W/O CONTRAST - 04/07/2019 HISTORY: RLQ pain TECHNIQUE: CT abdomen/pelvis without contrast. No contrast administered per request of the referring provider. COMPARISON: 01/16/2018 FINDINGS: There is some limitation of detail without administered contrast. There are bilateral pleural effusions, largest on the right. There is expansile bony metastatic disease with soft tissue masses from T9 through T12-L1. This was most recently evaluated on 08/16/2018. There is a 1.3 cm fluid density lesion, possibly representing a cyst, in the posterior right lobe of liver. There are no other substantial abnormalities of the liver, spleen, or pancreas identified. There is stable mild fullness of the adrenal glands. There are no calcified gallstones or pericholecystic inflammation seen. The left kidney is absent. There is no right renal stone or hydronephrosis identified. The distal most right ureter is obscured by artifacts from metallic lateral hip prostheses. There is a right lower quadrant anterior abdominal wall hernia which contains small bowel. The anterior margin of the cecum bulges into the orifice of the hernia. The appendix is unremarkable. There is no evidence of bowel obstruction. There is colonic diverticulosis which is most extensive at the distal descending and sigmoid colon. There is no evidence of diverticulitis. There is bone erosion/destruction at the sacrococcygeal junction. There is a soft tissue ulcer posterior to this. There is some ill-defined presacral edema. These findings may relate to chronic osteomyelitis or destructive metastasis. IMPRESSION: Expansile bony metastatic disease from T9 to T12-L1. Bony erosive/destructive changes at sacrococcygeal junction. This may relate to chronic osteomyelitis associated with adjacent soft tissue ulcer or to destructive metastatic disease. Right lower quadrant anterior abdominal wall hernia which contains small bowel. No complicating features. No bowel obstruction. Colonic diverticulosis. No evidence of diverticulitis. No abscess. No free air. Bilateral pleural effusions, largest on the right. This exam was performed using automated exposure control, adjustment of mA or kV according to patient size, and/or use of iterative reconstruction technique. Electronically signed by Guy Perkins 04/07/2019 1:02 PM
--- NOTE | 2019-04-07 15:12 | PROGRESS NOTE ---
DATE: 04/07/2019 SUBJECTIVE: Mr. Hogan is feeling better. He was complaining of sharp pain in the right lower quadrant, which is off and on. No high-grade fever or chills. No recent seizure-type episode. Denied any nausea or vomiting. Oral intake is fair. OBJECTIVE: Vital Signs: Noted. Temperature 97.5 degrees, blood pressure 114/61, pulse 95, respirations 21. Neck: Supple. No JVD. Lungs: Bibasilar crepitations. Heart: S1 and S2 heard. Abdomen: Soft, globular. Bowel sounds present. Tenderness, right lower quadrant. LOSS PREVENTION GUARD: Alert, awake, able to move all 4 limbs. IMAGING AND LABORATORY DATA: Today, hemoglobin 9.2, hematocrit 31, WBC count 8.74, platelet count 410,000. Electrolytes: BUN 17, creatinine 1.3. ASSESSMENT: 1. Seizure. Will continue current treatment. 2. Chronic kidney disease. 3. Hypertension, on Norvasc. 4. Hyperlipidemia. 5. The patient does have pain in the right lower quadrant. I am going to get noncontrast CT scan of the abdomen and pelvis. The patient's was present. Overall plan discussed with her, and she is in agreement. cc: Alexander Andrade MD
[2019-04-07] MEDS: LIPITOR PO SCH (20:45)
[2019-04-08] MEDS: PATIENT'S OWN MED PO SCH ×3 (00:08→20:33)
[2019-04-08] MEDS: MAXIPIME 1 GM in NS 50 ML IV SCH ×2 (01:30→12:23)
[2019-04-08] MEDS: KEPPRA PO SCH ×2 (04:09→16:10)
--- NOTE | 2019-04-08 07:20 | PROGRESS NOTE ---
DATE: 04/08/2019 SUBJECTIVE: Mr. Hogan is doing fair. No recent major seizure. He is complaining of pain in the lower back, and also in the right groin area. Patient had a decubitus ulcer. No high-grade fever or chills. Denied any chest pain. OBJECTIVE: His vital signs noted. Neck: Supple. No JVD. Lungs: Bibasilar crepitations. Decreased air entry at both bases. CVS: S1 and S2 heard. Abdomen: Soft and globular. Bowel sounds are present. MORTGAGE COUNSELOR: Alert and awake. Able to move both upper limbs well compared to lower limbs. LABORATORY DATA: Lab data done yesterday reviewed. Patient's CT scan results reviewed and discussed with the patient's . ASSESSMENT AND PLAN: 1. Patient admitted with seizure and clinically doing better. I am going to change Keppra to take by mouth. 2. UTI due to Pseudomonas. 3. Patient has a nonhealing ulcer on the back with possible underlying osteomyelitis. 4. Morbid obesity. 5. Chronic kidney disease. 6. Metastatic prostate cancer. PLAN: Patient's labs and medication noted. I am going to give him [place] for pain. Continue rest of the treatment. IV antibiotics and close observation. Change Keppra to take by mouth. cc: Alexander Andrade MD
[2019-04-08] MEDS ORDERED: NORVASC PO SCH (09:00)
[2019-04-08] MEDS: JANUVIA PO SCH (09:01)
[2019-04-08] MEDS: NEURONTIN PO SCH ×2 (09:01→20:33)
--- NOTE | 2019-04-08 11:52 | NEUROLOGY PROGRESS NOTE ---
DATE: 04/08/2019 Mr. Hogan has not had clinically apparent seizure over the weekend. This morning, he seems sleepy but can be easily waked and was alert and attentive during my time at the bedside. He continues levetiracetam 1000 mg q.12 hours and that dose has been given p.o. now. He has not required a dose of the p.r.n. lorazepam for seizure. Lab shows creatinine improved to 1.3, so likely does not have significant levetiracetam toxicity causing sleepiness. I do not see anything in the metabolic profile that would likely be associated with seizure or encephalopathy. He continues afebrile. IMPRESSION: Presentation 3 days ago with a series of seizures and 's history that he may have had seizure as long as a year ago. Seizure appears to be well controlled with current management here. EEG can be obtained electively, not urgent. I would continue levetiracetam at current dose, continue to follow renal function and plan to discharge on this dose when medically stable. I will be glad to follow him in the office for seizure management. His paraparesis is long-standing and not a new issue now. Thanks for asking Neurology to see Mr. Hogan. cc: MD Alexander Amaya III, MD MTDD
--- NOTE | 2019-04-08 15:16 | EEG REPORT ---
DATE: 04/08/2019 EEG #: [id number]. COMMENT: This is a digitally recorded EEG on a 69-year-old patient with reported baseline cognitive impairment, several recent apparent generalized seizures, possibility of seizure a year ago. FINDINGS: During waking, poorly sustained 9 hertz posterior rhythm is present bilaterally with uncertain reactivity to eye opening. Background contains polymorphic and rhythmic theta frequencies across the frontal and central regions with occasionally prominent slowing into the delta range frontally, bilaterally. Drowsing occurred with appearance of more generalized slowing. Stage 2 sleep was not recorded. Photic stimulation did not significantly alter the record. No definite epileptiform discharge was identified. INTERPRETATION: Abnormal EEG because of generalized slowing. CORRELATION: This is indicative of a diffuse encephalopathy and is nonspecific. This would correlate with his reported baseline cognitive impairment. The absence of epileptiform discharges does not exclude a clinical diagnosis of seizures. cc: MD Alexander Amaya III, MD [facility]
[2019-04-08] MEDS: LIPITOR PO SCH (20:32)
[2019-04-09] MEDS: MAXIPIME 1 GM in NS 50 ML IV SCH ×2 (01:33→12:52)
[2019-04-09] MEDS: KEPPRA PO SCH ×2 (04:33→15:52)
[2019-04-09] MEDS ORDERED: NORCO-5 PO PRN (06:56)
--- NOTE | 2019-04-09 07:35 | PROGRESS NOTE ---
DATE: 04/09/2019 SUBJECTIVE: Mr. Hogan is doing fair. No recent seizure-type episode. The patient is on IV antibiotics for Pseudomonas UTI and also possible bony erosive destructive changes at sacrococcygeal junction, maybe related to chronic osteomyelitis associated with soft tissue ulcer or to destructive metastatic disease. Denied any fever, chills. Oral intake is better. No nausea or vomiting. OBJECTIVE: Vital Signs: Noted. Neck: Supple. No JVD. Lungs: Bibasilar crepitations. Heart: S1 and S2 heard. Abdomen: Soft, globular. Bowel sounds present. LOAN SERVICING REPRESENTATIVE: Alert, awake. Answering questions fair. PLAN: The patient was on [place] for pain at home. I am going to resume. Continue IV antibiotics. Change position frequently. Continue the rest of the treatment. We are doing local wound care. Appreciate Dr. Gomez's help managing the patient. I am going to repeat appropriate lab and x- ray tomorrow. If clinical condition permits, will plan on discharging the patient home soon with no low-normal blood pressure. I am going to stop his Norvasc. cc: Alexander Andrade MD
[2019-04-09] MEDS: JANUVIA PO SCH (08:44)
[2019-04-09] MEDS: NEURONTIN PO SCH ×2 (08:44→20:54)
[2019-04-09] MEDS: PATIENT'S OWN MED PO SCH ×2 (08:45→20:54)
--- NOTE | 2019-04-09 14:56 | NEUROLOGY PROGRESS NOTE ---
DATE: 04/09/2019 SUBJECTIVE: Mr. Hogan has not had further seizure. He does not recall having seizures prior to admission and he does not recall his admission to the hospital. He appears to be tolerating current management with levetiracetam 1000 mg b.i.d. OBJECTIVE: He is cheerful and much more alert, more spontaneous, brighter, more interactive, initiating conversation today. I do not have any new thoughts or new suggestions from Neurology standpoint today. I would continue levetiracetam and plan to discharge him on this dose. I will be glad to see him as an outpatient for seizure management, if needed. Thanks for asking Neurology to see Mr. Hogan. cc: MD Alexander Amaya III, MD MTDD
[2019-04-09] MEDS: LIPITOR PO SCH (20:54)
[2019-04-10] MEDS: MAXIPIME 1 GM in NS 50 ML IV SCH ×2 (01:13→12:25)
[2019-04-10] MEDS: KEPPRA PO SCH ×2 (04:57→15:26)
[2019-04-10 06:53] LABS: AGAP 11; ALB/GLOB RATIO 0.7; ALBUMIN 2.5 g/dL (3.5-5.0); ALKALINE PHOSPHATASE 866 U/L (32-122); BUN 21 mg/dL (8-22); CALCIUM 9.4 mg/dL (8.8-10.2); CHLORIDE 107 mmol/L (98-107); COSMO 279; CREATININE 1.3 mg/dL (0.7-1.2); ESTIMATED GFR > 60; GLUCOSE 101 mg/dL (70-104); GOT 12 U/L (10-34); GPT 6 U/L (10-44); MAGNESIUM 1.6 mg/dL (1.5-2.7); POTASSIUM 4.2 mmol/L (3.5-5.1); SODIUM 138 mmol/L (136-145); TCO2 20 mmol/L (25-35); TOTAL BILIRUBIN 0.43 mg/dL (0.20-1.00); TOTAL PROTEIN 6.1 g/dL (6.3-8.3)
[2019-04-10 07:03] LABS: BASO# 0.02 X1000 (0.0-0.2); BASO% 0.2 % (0.0-0.8); EOS# 0.27 X1000 (0.0-0.7); EOS% 3.3 % (0.0-10.0); HEMATOCRIT 26.5 % (42.0-52.0); HEMOGLOBIN 7.7 g/dL (14.0-18.0); IMM GRAN# 0.11 X1000 (0.0-0.04); IMM GRAN% 1.3 % (0.0-0.5); LYMPH# 1.16 X1000 (1.2-3.4); MCHC 29.1 g/dL (33-37); MCV 68.8 FL (81-99); MONO# 0.82 X1000 (0.11-0.59); MONO% 9.9 % (1.7-9.3); MPV 8.4 FL (7.4-10.4); NEUT% 71.3 % (42.2-75.2); PLT 409 X1000 (130-400); RBC 3.85 XMIL (4.7-6.1); WBC 8.28 X1000 (4.8-10.8)
[2019-04-10 08:09] LABS: SED RATE 80 mm/hr (0-15)
[2019-04-10] MEDS: JANUVIA PO SCH (08:52)
[2019-04-10] MEDS: PATIENT'S OWN MED PO SCH ×2 (08:52→20:50)
[2019-04-10] MEDS: NEURONTIN PO SCH ×2 (08:52→20:49)
--- NOTE | 2019-04-10 09:28 | PROGRESS NOTE ---
DATE: 04/10/2019 SUBJECTIVE: Richard is feeling somewhat better. OBJECTIVE: His hemoglobin is down to 7.7. BUN is 21, creatinine 1.3. His potassium is 4.2. ASSESSMENT: Overall condition is improving. He is on IV cefepime for Pseudomonas infections and a decubitus as well as UTI. He did not have any seizures recently in last 24 hours, does not remember having any seizures prior to hospitalization. PLAN: We will continue with the current management. We will transfuse him at least 1 unit of packed RBCs today. cc: MD Alexander Galindo MD
[2019-04-10] MEDS ORDERED: NS 500 ML IV SCH (11:15)
[2019-04-10] MEDS: LIPITOR PO SCH (20:49)
[2019-04-11] MEDS: MAXIPIME 1 GM in NS 50 ML IV SCH ×2 (01:27→16:14)
[2019-04-11] MEDS: KEPPRA PO SCH ×2 (05:26→16:14)
[2019-04-11 06:49] LABS: BASO# 0.02 X1000 (0.0-0.2); BASO% 0.3 % (0.0-0.8); EOS# 0.29 X1000 (0.0-0.7); EOS% 3.8 % (0.0-10.0); HEMATOCRIT 26.1 % (42.0-52.0); HEMOGLOBIN 7.6 g/dL (14.0-18.0); IMM GRAN# 0.11 X1000 (0.0-0.04); IMM GRAN% 1.4 % (0.0-0.5); LYMPH# 1.08 X1000 (1.2-3.4); MCH 20.1 PG (27-31); MCHC 29.1 g/dL (33-37); MONO# 0.88 X1000 (0.11-0.59); MONO% 11.4 % (1.7-9.3); MPV 8.3 FL (7.4-10.4); NEUT# 5.33 X1000 (1.4-6.5); NEUT% 69.1 % (42.2-75.2); PLT 389 X1000 (130-400); RBC 3.78 XMIL (4.7-6.1); RDW 21.5 % (11.5-14.5); WBC 7.71 X1000 (4.8-10.8)
[2019-04-11] MEDS: PATIENT'S OWN MED PO SCH ×2 (08:12→21:44)
[2019-04-11] MEDS: JANUVIA PO SCH (08:12)
[2019-04-11] MEDS: NEURONTIN PO SCH ×2 (08:12→21:44)
--- NOTE | 2019-04-11 09:10 | PROGRESS NOTE ---
DATE: 04/11/2019 Mr. Hogan is feeling about the same. He is still significantly anemic. Hemoglobin is 7.6, hematocrit 26.1. He is symptomatic. He is very weak. Had an nonhealing ulcer. 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 He had nephrectomy on one side. We will transfuse him one more unit of packed RBC. cc: MD Alexander Galindo MD
[2019-04-11] MEDS: NS 500 ML IV SCH (18:41)
[2019-04-11] MEDS: LIPITOR PO SCH (21:44)
[2019-04-12] MEDS: MAXIPIME 1 GM in NS 50 ML IV SCH (04:43)
[2019-04-12] MEDS: NS 500 ML IV SCH (05:57)
[2019-04-12 06:27] LABS: BASO# 0.02 X1000 (0.0-0.2); BASO% 0.3 % (0.0-0.8); EOS# 0.26 X1000 (0.0-0.7); EOS% 3.4 % (0.0-10.0); HEMATOCRIT 26.6 % (42.0-52.0); HEMOGLOBIN 7.8 g/dL (14.0-18.0); IMM GRAN# 0.09 X1000 (0.0-0.04); IMM GRAN% 1.2 % (0.0-0.5); LYMPH% 15.6 % (20.5-51.1); MCH 20.3 PG (27-31); MCHC 29.3 g/dL (33-37); MCV 69.1 FL (81-99); MONO# 0.87 X1000 (0.11-0.59); MONO% 11.3 % (1.7-9.3); MPV 8.3 FL (7.4-10.4); NEUT# 5.26 X1000 (1.4-6.5); NEUT% 68.2 % (42.2-75.2); PLT 372 X1000 (130-400); RBC 3.85 XMIL (4.7-6.1); RDW 21.5 % (11.5-14.5)
[2019-04-12] MEDS: JANUVIA PO SCH (08:48)
[2019-04-12] MEDS: NEURONTIN PO SCH (08:49)
[2019-04-12] MEDS: KEPPRA PO SCH (08:49)
[2019-04-12] MEDS: PATIENT'S OWN MED PO SCH (08:50)
[2019-04-12 12:05] VITALS: BP 144/69
--- NOTE | 2019-04-12 13:18 | PROGRESS NOTE ---
DATE: 04/12/2019 SUBJECTIVE: Mr. Hogan is doing better. His blood sugar was 96. Hemoglobin after the second transfusion is only going up to 7.8. White count was 7.7. He did not have any seizure. I am going to discharge him today. cc: MD Alexander Galindo MD
--- NOTE | 2019-04-12 17:13 | NEUROLOGY PROGRESS NOTE ---
DATE: 04/12/2019 Mr. Hogan has not had any further seizure recognized. Mrs. Hogan at the bedside this morning reports his mental status seems to be about back to baseline. He continues levetiracetam 1000 mg p.o. q.12 hours and continues his pre-admission gabapentin 300 mg b.i.d. He has lorazepam p.r.n. with no dose administered. Blood sugars appear to be very well controlled. Alkaline phosphatase is 866, stable through this admission. I do not see anything in the chemistry profile that would be associated with encephalopathy or seizure. He continues afebrile. Paraparesis is at baseline. I do not have any new suggestion from Neurology standpoint. I would plan to continue his current levetiracetam dose after discharge. I will be glad to see Mr. Hogan as an outpatient, if needed. Thanks for asking Neurology to see him. cc: MD Alexander Amaya III, MD
--- NOTE | 2019-04-13 02:34 | DISCHARGE SUMMARY ---
ADMISSION DATE: 04/05/2019 DISCHARGE DATE: 04/12/2019 Mr. Hogan is a 69-year-old gentleman, a known case of metastatic prostatic carcinoma with paraplegia, was admitted with recurrent seizures. He had at least four grand mal type of seizures. Two seizures happened while he was in the CAT scan, getting a CT scan of the head. On the CAT scan, no acute disease or change from the prior was noted. EKG reveals sinus tachycardia, low voltage, borderline EKG was noted. Chest x-ray was negative exam. Abdominal CT scan had revealed bilateral pleural effusions largest on the right side. Right lower quadrant abdominal wall hernia which contained small bowel and CT also revealed expansile bony metastatic disease from T9 to T12. LABORATORY DATA: Revealed anemia, hemoglobin 9.4, which went down to 7.6. INR was 1.01. Chemistry revealed blood sugars were normal. Sodium was 138, potassium 4.2, BUN was 21, creatinine 1.3. Alkaline phosphatase was 866, probably from the metastatic disease bone disease. Urine culture, urinalysis revealed too numerous WBCs. The urine is clear. A drug screen was negative and microbiology revealed Pseudomonas aeruginosa from the urine culture which was sensitive to cefepime. We did urgent neurology consultation. He was seen by Dr. Gomez. History sounded like four seizures today and he agreed with the current seizure management. The patient was given levetiracetam and MRI was also considered at a later date. He continued to improve. He was better and we decided to send him home with transfusing 2 units of packed RBCs, however that really did not impact his hemoglobin and hematocrit. However, symptomatically he felt better. IMPRESSION: Recurrent seizures, paraplegia, metastatic prostate cancer, metastasis to four vertebrae with paraparesis or paraplegia and Pseudomonas UTI, severe anemia secondary from the probably nutritional anemia. He was given prescriptions of Keppra and I gave him about 45 tablets of [place] 5 t.i.d. p.r.n. cc: MD Alexander Galindo MD [facility]ENTER[facility]preet
== END 2019-04-12 15:19 | disposition home health service (06) | DRG 100 ==
LOC: SUPCPDRO → ED 08:28 → ICU 12:54 → 2N 04-07 17:53
PROVIDERS: ADMIT Internal Medicine; ATTEND Internal Medicine

== ENCOUNTER 2019-05-17 01:13 | Inpatient (IN) ==
[2019-05-17] MEDS ORDERED: LIORESAL PO ONE (02:06)
[2019-05-17] MEDS ORDERED: TORADOL IV ONE (02:06)
[2019-05-17] MEDS ORDERED: NORCO-5 PO ONE (02:06)
[2019-05-17] MEDS ORDERED: ZOFRAN IV ONE (02:06)
[2019-05-17 02:10] LABS: URINE SOURCE CATH
[2019-05-17 02:24] LABS: BILIRUBIN URINE NEGATIVE (NEGATIVE); BLOOD URINE MODERATE (NEGATIVE); COLOR ORANGE; GLUCOSE URINE NEGATIVE (NEGATIVE); KETONE URINE NEGATIVE (NEGATIVE); LEUKOCYTES URINE LARGE (NEGATIVE); NITRITE URINE POSITIVE (NEGATIVE); PROTEIN URINE 200 mg/dL (NEGATIVE); SP GRAVITY URINE 1.024; TURBIDITY URINE TURBID (CLEAR); UROBILINOGEN URINE 3 mg/dL (NORMAL)
[2019-05-17 02:26] LABS: UR EPITHELIAL CELLS <10 /HPF (<10); URINE BACTERIA 3+ /HPF; URINE RBC TNTC /HPF (<10); URINE WBC TNTC /HPF (<10)
[2019-05-17 02:26] LABS: BASO# 0.02 X1000 (0.0-0.2); BASO% 0.2 % (0.0-0.8); EOS% 0.9 % (0.0-10.0); HEMATOCRIT 19.4 % (42.0-52.0); IMM GRAN% 0.9 % (0.0-0.5); LYMPH# 0.88 X1000 (1.2-3.4); LYMPH% 7.7 % (20.5-51.1); MCH 19.1 PG (27-31); MCHC 29.9 g/dL (33-37); MONO# 1.23 X1000 (0.11-0.59); MONO% 10.7 % (1.7-9.3); MPV 8.4 FL (7.4-10.4); NEUT# 9.13 X1000 (1.4-6.5); NEUT% 79.6 % (42.2-75.2); PLT 351 X1000 (130-400); RBC 3.03 XMIL (4.7-6.1); RDW 23.4 % (11.5-14.5); WBC 11.46 X1000 (4.8-10.8)
[2019-05-17 02:27] LABS: HEMOGLOBIN 5.8 g/dL (14.0-18.0)
[2019-05-17 02:33] LABS: URINE CASTS NONE SEEN; URINE CRYSTALS NONE SEEN; URINE YEAST NONE SEEN
[2019-05-17 02:34] LABS: URINE SMALL ROUND CELLS NONE SEEN
[2019-05-17 02:52] LABS: AGAP 12; ALB/GLOB RATIO 0.7; ALBUMIN 2.4 g/dL (3.5-5.0); ALKALINE PHOSPHATASE 2003 U/L (32-122); BUN 22 mg/dL (8-22); CALCIUM 8.4 mg/dL (8.8-10.2); CHLORIDE 100 mmol/L (98-107); COSMO 268; CREATININE 1.2 mg/dL (0.7-1.2); ESTIMATED GFR > 60; GLUCOSE 100 mg/dL (70-104); GOT 31 U/L (10-34); GPT < 5 U/L (10-44); POTASSIUM 4.5 mmol/L (3.5-5.1); SODIUM 132 mmol/L (136-145); TCO2 20 mmol/L (25-35); TOTAL BILIRUBIN 0.69 mg/dL (0.20-1.00)
--- NOTE | 2019-05-17 03:14 | PROVIDER DOCUMENTATION ---
HPI-Male Problem - General Chief Complaint: Flank Pain Stated Complaint: abdominal pain Time Seen by Provider: 05/17/19 01:25 Source: patient Allergies/Adverse Reactions: Patient Allergies Allergy/AdvReac Type Severity Reaction Status Date / Time levofloxacin [From Levaquin] Allergy Intermediate SWELLING Verified 05/17/19 01:31 Home Medications: Home Medication List Medication Instructions Recorded Confirmed Last Taken Type Atorvastatin Calcium [Lipitor] 20 mg PO QHS 02/10/15 05/17/19 09/25/16 20:00 History Enzalutamide [Xtandi] 160 mg PO BID 02/10/15 05/17/19 03/05/15 21:00 History Amlodipine Besylate [Norvasc] 5 mg PO DAILY 01/22/18 05/17/19 Unknown History Gabapentin 300 mg PO BID 01/22/18 05/17/19 Unknown History Sitagliptin [Januvia] 100 mg PO DAILY tab 11/01/18 05/17/19 Unknown Rx Fluconazole 100 mg PO DIRECTED 04/05/19 05/17/19 Unknown History Sulfamethoxazole/Trimethoprim 1 ea PO BID 04/05/19 05/17/19 Unknown History [Bactrim Ds Tablet] Acetaminophen [Tylenol] 650 mg PO Q6H PRN PRN tab 04/12/19 05/17/19 Unknown Rx Hydrocodone/APAP 5 mg/325 mg 1 ea PO TID PRN PRN tab 04/12/19 05/17/19 Unknown Rx [Conshohocken-5] Levetiracetam [Keppra] 1,000 mg PO Q12H tab 04/12/19 05/17/19 Unknown Rx - History of Present Illness-Male Nature of Presenting Problem: Patient presents with the complaint of left sided flank pain x 3 days. No trauma reported. Location of Complaint: reports: left flank Radiation: reports: none Quality of Pain: reports: aching, throbbing Severity in ED: reports: moderate Onset/Duration: reports: 3 days ago Timing: reports: still present, getting worse Context/Activities at Onset: reports: none Urinary Symptoms: reports: low back pain Associated Symptoms: reports: none Associated Symptoms: reports: nausea Similar Symptoms Previously?: No Recently seen or treated by another doctor?: No Review of Systems - Adult - REVIEW OF SYSTEMS - ADULT Constitutional: reports: no symptoms reported Eyes: reports: no symptoms reported Ears, Nose, Mouth & Throat: reports: no symptoms reported Cardiovascular: reports: no symptoms reported Respiratory: reports: no symptoms reported Gastrointestinal: reports: no symptoms reported Genitourinary: reports: see HPI, flank pain Musculoskeletal: reports: no symptoms reported Integumentary: reports: no symptoms reported Neurological: reports: no symptoms reported Psychiatric: reports: no symptoms reported Endocrine: reports: no symptoms reported Hematologic/Lymphatic: reports: no symptoms reported Allergic/Immunologic: reports: no symptoms reported All Other Systems: Reviewed and Negative Past History - Adult - PAST MEDICAL HISTORY-ADULT Review of Records: reports: Old Records Reviewed, Nursing Assessment Review, Medications Reviewed, Social history reviewed & non-contributory. Major Childhood Illnesses: reports: denies history Cardiovascular: reports: HTN Respiratory: reports: sleep apnea Gastrointestinal: reports: cancer (prostate) Obstetrical/Gynecological: reports: denies history Genitourinary: reports: cancer (Left Kidney), dialysis, prostate cancer Musculoskeletal: reports: neck/back injury, spinal fracture Neurological: reports: denies history Psychiatric: reports: denies history Endocrine/Immune: reports: Diabetes Other Conditions: reports: denies history - PRIOR SURGERIES/PROCEDURES Surgical/Procedure History: reports: recent surgery (Left nephrectomy), joint replacement (Total hip) - PRIOR HOSPITALIZATIONS Prior Hospitalizations: reports: for other non-related - IMMUNIZATION STATUS Childhood Immunizations: See Nurse Assessment Flu Vaccine: See Nurse Assessment - FAMILY HISTORY Family History: reviewed, not pertinent Physical Exam-General - PHYSICAL EXAM-ADULT Initial Vital Signs Reviewed: Yes - CONSTITUTIONAL General Appearance: no apparent distress - EYES Eyes: PERRL/EOMI - HEAD, EARS, NOSE, MOUTH & THROAT HENMT: normocephalic/atraumatic - NECK Neck: non-tender, full range of motion, supple, normal inspection - RESPIRATORY Respiratory: chest non-tender, lungs clear, normal breath sounds, no pleuratic chest pain, no respiratory distress, no accessory muscle use - CARDIOVASCULAR Cardiovascular: normal peripheral pulses, regular rate, rhythm, no edema, no gallop, no JVD, no murmur - GASTROINTESTINAL (ABDOMEN) Abdominal Exam: normal bowel sounds, non tender, no organomegaly, no pulsatile mass - LYMPHATIC Lymphatic: no adenopathy - MUSCULOSKELETAL Back Exam: CVA tenderness (on left) Extremity: normal range of motion, non-tender - SKIN Integumentary: normal color, warm/dry - NEUROLOGIC Neurologic: grossly normal - PSYCHIATRIC Psych/Mental Status: oriented x 3 Progress - PLAN OF CARE/RESULTS Progress/Plan/Lab Results: Vital Signs - 8 hr 05/17/19 01:25 05/17/19 02:31 05/17/19 03:41 Temperature 97.6 F Pulse Rate 89 90 80 Respiratory Rate 18 20 20 Blood Pressure 94/56 91/55 88/54 O2 Sat by Pulse Oximetry 99 99 98 05/17/19 03:51 05/17/19 04:23 Temperature Pulse Rate 84 83 Respiratory Rate 18 Blood Pressure 90/52 84/47 O2 Sat by Pulse Oximetry 98 99 Laboratory Results - last 24 hr 05/17/19 05/17/19 05/17/19 01:35 01:35 01:35 WBC 11.46 H RBC 3.03 L Hgb 5.8 L* Hct 19.4 L MCV 64.0 L MCH 19.1 L MCHC 29.9 L RDW Std Deviation 23.4 H Plt Count 351 MPV 8.4 Immature Gran % (Auto) 0.9 H Neut % (Auto) 79.6 H Lymph % (Auto) 7.7 L [place] % (Auto) 10.7 H Eos % (Auto) 0.9 Baso % (Auto) 0.2 Immature Gran # (Auto) 0.10 H Neut # (Auto) 9.13 H Lymph # (Auto) 0.88 L [place] # (Auto) 1.23 H Eos # (Auto) 0.10 Baso # (Auto) 0.02 Segmented Neutrophils Not Reportable Sodium 132 L Potassium 4.5 Chloride 100 Carbon Dioxide 20 L Anion Gap 12 BUN 22 Creatinine 1.2 Estimated GFR/1.73 m2 > 60 BUN/Creatinine Ratio 18 Glucose 100 Calculated Osmolality 268 Calcium 8.4 L Total Bilirubin 0.69 AST 31 ALT < 5 L Alkaline Phosphatase 2003 H Total Protein 6.0 L Albumin 2.4 L Globulin 3.6 Albumin/Globulin Ratio 0.7 Plasma Lactate 0.9 Urine Source Urine Color Urine Turbidity Urine pH Ur Specific [place] Urine Protein Ur Glucose (Stick) Ur Ketones (Stick) Urine Blood Urine Nitrite Urine Bilirubin Urobilinogen Dipstick Urine Leukocytes Urine WBC (Auto) Urine RBC (Auto) U Epithel Cells (Auto) Urine Bacteria (Auto) Urine Crystals Small Round Cells Urine Casts Urine Yeast-like Cells Blood Type Antibody Screen 05/17/19 05/17/19 01:35 01:41 WBC RBC Hgb Hct MCV MCH MCHC RDW Std Deviation Plt Count MPV Immature Gran % (Auto) Neut % (Auto) Lymph % (Auto) [place] % (Auto) Eos % (Auto) Baso % (Auto) Immature Gran # (Auto) Neut # (Auto) Lymph # (Auto) [place] # (Auto) Eos # (Auto) Baso # (Auto) Segmented Neutrophils Sodium Potassium Chloride Carbon Dioxide Anion Gap BUN Creatinine Estimated GFR/1.73 m2 BUN/Creatinine Ratio Glucose Calculated Osmolality Calcium Total Bilirubin AST ALT Alkaline Phosphatase Total Protein Albumin Globulin Albumin/Globulin Ratio Plasma Lactate Urine Source CATH Urine Color ORANGE Urine Turbidity TURBID Urine pH 6.0 Ur Specific [place] 1.024 Urine Protein 200 A Ur Glucose (Stick) NEGATIVE Ur Ketones (Stick) NEGATIVE Urine Blood MODERATE A Urine Nitrite POSITIVE A Urine Bilirubin NEGATIVE Urobilinogen Dipstick 3 A Urine Leukocytes LARGE A Urine WBC (Auto) TNTC A Urine RBC (Auto) TNTC A U Epithel Cells (Auto) <10 Urine Bacteria (Auto) 3+ Urine Crystals NONE SEEN Small Round Cells NONE SEEN Urine Casts NONE SEEN Urine Yeast-like Cells NONE SEEN Blood Type A POSITIVE Antibody Screen NEGATIVE Orders Category Date Time Status Consent for Test/Procedure DIRECTED Care 05/17/19 04:39 Ordered NEWS Score 2-4:Order NEWS Lactate Series NOW Care 05/17/19 01:29 Active Notify if DIRECTED Care 05/17/19 04:39 Ordered Transfuse .Give-Transfuse Care 05/17/19 04:[address] ABDOMEN/PELVIS W/O CONTRAST [CT] Stat Exams 05/17/19 03:08 Taken FLAT/UPRIGHT ABD/1 VIEW CHEST [RAD] Stat Exams 05/17/19 01:30 Taken CBC WITH ELECTRONIC DIFF [HEME] Stat Lab 05/17/19 01:35 Completed COMPREHENSIVE METABOLIC PANEL [CHEM] Stat Lab 05/17/19 01:35 Completed LACTATE, PLASMA [CHEM] Lab 05/17/19 04:30 Uncollected LACTATE, PLASMA [CHEM] Lab 05/17/19 07:30 Uncollected LACTATE, PLASMA [CHEM] Q3H Lab 05/17/19 01:35 Completed TYPE & SCREEN [BBK] Stat Lab 05/17/19 01:35 Completed URINALYSIS [URINALYSIS] Stat Lab 05/17/19 01:41 Completed URINE CULTURE [RM] Stat Lab 05/17/19 04:30 Uncollected URINE MANUAL MICROSCOPIC [URINALYSIS] Stat Lab 05/17/19 01:41 Completed 0.9% Sodium Chloride Inj [Ns] 500 ml Med 05/17/19 04:38 Ordered IV 30 mls/hr Baclofen [Lioresal] Med 05/17/19 02:06 Discontinued 10 mg PO NOW ONE CefTRIAXONE [Rocephin] 1 gm Med 05/17/19 04:30 Active 0.9% Sodium Chloride Inj [Ns] 50 ml IV NOW Dextrose 5%-0.45% NaCl Inj [D5 1/2 Ns] 250 ml Med 05/17/19 04:30 Active Norepinephrine [Levophed] 8 mg IV As Directed mls/hr Hydrocodone/APAP 5 mg/325 mg [Conshohocken-5] Med 05/17/19 02:06 Discontinued 1 each PO NOW ONE Ketorolac [Toradol] Med 05/17/19 02:06 Discontinued 30 mg IV NOW ONE Ondansetron [Zofran] Med 05/17/19 02:06 Discontinued 4 mg IV NOW ONE Result Diagrams: 05/17/19 01:35 05/17/19 01:35 - REASSESSMENT Reassessment #1 Time Reassessed: 04:33 Status: worsening (Patient with UTI, anemia and decreased BP. Will start levo phed for BP support and antibiotic for UTI. Awaiting on CT result.) - CONSULTS/PCP/HOSPITALIST Notification #1 *Consult/PCP/Hospitalist*: Dr. Vaughn Consult Disposition: Admit Departure - Departure Date of Disposition Decision: 05/17/19 Time of Disposition Decision: 04:56 DIAGNOSIS: Sepsis Qualifiers: Sepsis type: sepsis due to unspecified organism Sepsis acute organ dysfunction status: unspecified Qualified Code(s): A41.9 - Sepsis, unspecified organism UTI (urinary tract infection) Qualifiers: Urinary tract infection type: catheter-associated UTI Indwelling urinary catheter type: indwelling urethral catheter Encounter type: initial encounter Qualified Code(s): T83.511A - Infection and inflammatory reaction due to indwelling urethral catheter, initial encounter; N39.0 - Urinary tract infection, site not specified Anemia Qualifiers: Anemia type: unspecified type Qualified Code(s): D64.9 - Anemia, unspecified Disposition: ADMITTED INPATIENT 09 Certified Medical Emergency: Emergent Condition: Stable Referrals and Follow-Ups: None,PCP [Primary Care Provider] - - Critical Care Note This patient required my direct & personal management of CC.: Yes Total Time (mins): 30 Critical Care Statement: This patient required my direct personal management to treat or rule out processes, the absence of which, could potentiallly result in sudden, clinically significant life or limb threatening deterioration. Attestation - Physician/ DARYN Attestation Patient care was provided by Advanced Practice Provider:: No The physician spent face to face time with patient:: Yes Advanced Practice Provider documentation review:: Supervising physician onsite and consulted in the evaluation and care of this patient. The physician did have a face to face encounter with the patient.
[2019-05-17] MEDS ORDERED: ROCEPHIN 1 GM in NS 50 ML IV ONE (04:30)
[2019-05-17] MEDS ORDERED: LEVOPHED 8 MG in D5 1/2 NS 250 ML IV SCH (04:30)
[2019-05-17] MEDS ORDERED: NS 500 ML IV ONE (04:38)
--- NOTE | 2019-05-17 06:50 | Diag Imaging Result Doc PS360 ---
EXAM: FLAT/UPRIGHT ABD/1 VIEW CHEST HISTORY: abdominal pain TECHNIQUE: Four views COMPARISON: Chest compared to 04/07/2019 FINDINGS: No cardiomegaly. No change in the right portacatheter. No pneumothorax. There are infiltrates in the right base. No free air beneath the diaphragm. No bowel obstruction. No organomegaly. There has been extensive surgery to lower thoracic and lumbar spine with rods placed and there has been orthopedic replacement of each hip. IMPRESSION: No acute abdominal abnormality. There appears to be an infiltrate in the right base. Follow-up PA and lateral recommended. Electronically signed by Emmanuel Pak 05/17/2019 6:47 AM
[2019-05-17] MEDS ORDERED: VANCOMYCIN IV PER PHARMACY MISC SCH (07:00)
[2019-05-17] MEDS ORDERED: PRILOSEC PO SCH (07:00)
[2019-05-17] MEDS: HUMALOG SUBQ SCH ×4 (07:00→21:21)
--- NOTE | 2019-05-17 07:25 | Diag Imaging Result Doc PS360 ---
EXAM: CT ABDOMEN/PELVIS W/O CONTRAST 05/17/2019 HISTORY: hematuria TECHNIQUE: This exam was performed using automated exposure control, adjustment of mA or kV according to patient size, and/or use of iterative reconstruction technique. COMMENT: There are large bilateral pleural effusions. This was also the case on 04/07/2019. There is compressive atelectasis in both lower lobes. There are destructive changes and paravertebral mass involving T10-12 as well as L1. There has been posterior fusion from T9 through L2. The postsurgical changes were not present on 04/07/2019 but otherwise are has been little change. There is no evidence of cholelithiasis. The left kidney is grossly atrophic. The right kidney is without evidence of nephrolithiasis or hydronephrosis. There is a small hyperdense cyst in the upper pole posteriorly and there is a larger cyst in the lower pole measuring 15 mm in diameter. There is a ventral hernia in the lower abdomen just to the right of the midline containing some small bowel loops. There is no evidence of obstructive change. The appendix is not distended. There is diverticulosis, lead particularly in the sigmoid colon without evidence of active diverticulitis. There is a fairly large amount of stool in the rectum. There is a Mahajan catheter in the bladder. There is an apparent sacral decubitus ulcer with some bony destruction of the inferior sacrum and presacral fat induration. This is slightly worse than on the previous study. There are bilateral hip prostheses. There are sclerotic foci in the ischium on the left which were also present on the previous study. There is some mixed sclerotic and lytic destruction in L3. IMPRESSION: 1. 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 Sclerotic metastases in the left ischium. This appears to be largely stable since 04/07/2019. 2. Bilateral pleural effusions. Compressive atelectasis in both lower lobes. This is also apparently stable. 3. No evidence of obstructive uropathy or nephrolithiasis. The possibility of cystitis cannot be excluded. 4. Sacral cubitus ulcer with possible sacral osteomyelitis. The possibility of additional destructive metastasis cannot be excluded. 5. Ventral hernia without evidence of obstruction. Electronically signed by Choco Gayle 05/17/2019 7:23 AM
[2019-05-17] MEDS ORDERED: LEVAQUIN 500 MG/D5W 500 MG/100 ML IVPB IV SCH (07:30)
--- NOTE | 2019-05-17 07:33 | HISTORY AND PHYSICAL ---
CHIEF COMPLAINT: Left-sided flank pain. HISTORY OF PRESENT ILLNESS: Mr. Richard Hogan is a 69-year-old male, who has a history of multiple medical conditions including metastatic prostate cancer, paraplegia, chronic indwelling Mahajan catheter. The patient is not a good historian. He had a difficult time articulating why he is in the hospital. However, ER records indicates that he presents to the hospital because of left- sided flank pain which has been ongoing for about 3 days. The patient was noted to be profoundly anemic with a hematocrit of about 19.4. His UA showed a large amount of leukocytes, as well as numerous WBCs. Results on abdominal pelvic CT currently pending. The patient noted to be hypotensive in the emergency department and is currently on pressors. The patient will be admitted to the intensive care unit. Blood pressure as low as 88/54. PAST MEDICAL HISTORY: 1. Metastatic prostate cancer. 2. Spinal fracture. 3. Diabetes mellitus. 4. Hypertension. 5. Sleep apnea. 6. Paraplegia. 7. Chronic indwelling Mahajan catheter. PAST SURGICAL HISTORY: He has had left nephrectomy, as well as hip surgery. Back surgery. SOCIAL HISTORY: The patient denies any history of cigarette smoking. No alcohol or drug use. ALLERGIES: Patient is allergic to Levaquin. MEDICATIONS: His medications include the following: Atorvastatin 20 mg p.o. at bedtime, Xtandi 160 mg p.o. twice a day, amlodipine 5 mg p.o. daily, gabapentin 300 mg p.o. twice a day, Januvia 100 mg p.o. daily, fluconazole 100 mg p.o. as directed, Bactrim DS 1 twice a day, acetaminophen 650 mg q. 6 hours p.r.n., hydrocodone/acetaminophen one 3 times a day p.r.n., Keppra 1 g twice a day. REVIEW OF SYSTEMS: This is limited. The patient denies any fever, headaches, cough, chest pain, nausea, vomiting, abdominal pains. Has chronic indwelling Mahajan catheter. PHYSICAL EXAMINATION: VITAL SIGNS: Vital signs are as follows: Temperature is 97.6 degrees, pulse 78, respirations 18, blood pressure 120/64, oxygen saturation 99%. HEENT: Atraumatic normocephalic. He is anicteric. No oral lesions noted. NECK: No lymphadenopathy or thyromegaly. CARDIOVASCULAR SYSTEM: S1, S2. RESPIRATORY SYSTEM: Has evidence of good air entry bilaterally. ABDOMEN: Soft, nontender. No masses felt. EXTREMITIES: The patient does have difficulty appreciating dorsalis pedis pulse. The patient does have an infected left great toenail bed. CENTRAL NERVOUS SYSTEM: Patient is awake, confused and is paraplegic. LABORATORY DATA: WBC is 11.46, hematocrit is 19.4 with a platelet count of 351. Sodium is 132, potassium 4.5, chloride is 102, bicarbonate is 20. BUN is 22, creatinine is 1.2. Alkaline phosphatase 2003. UA shows large amount of leukocytes, numerous WBCs. IMAGING STUDIES: Abdominal x-ray shows possible infiltrate in the right lung base. ASSESSMENT AND PLAN: 1. Septic shock likely related to hospital-acquired pneumonia, as well as urinary tract infection. Maintain patient on intravenous fluids, as well as antibiotics. Follow up on cultures. Also maintain patient on pressors. The patient was managed initially in the intensive care unit. 2. Healthcare-associated pneumonia. Maintain patient on empiric antibiotics. Follow up on sputum, as well as blood culture. 3. Urinary tract infection. Follow up on urine culture. Continue antibiotics. 4. Paraplegia. Aware. 5. Profound anemia. Will check iron studies, along with B 12 and folate level. Stool for occult blood. Type/cross/transfuse packed red blood cells. Keep hematocrit above 25. 6. Diabetes mellitus. Maintain patient on sliding scale insulin. Monitor blood sugar levels. Check hemoglobin A1c level. 7. Seizure disorder. Maintain patient on seizure precaution. Continue Keppra. 8. Chronic indwelling Mahajan catheter. Aware. Change Mahajan per protocol. 9. Infected left great toe. Obtain wound culture. We can get an x-ray of that left foot, and maintain patient on antibiotics. 10. Metastatic prostate cancer. Consult with patient's oncologist. 11. 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 Aware. Recommend back brace. Oncology consulted. Also consult with Orthopedics. 12. Deep vein thrombosis prophylaxis. Sequential compression devices. 13. Gastrointestinal prophylaxis. Proton pump inhibitor. cc: Mohsen Vaughn MD
--- NOTE | 2019-05-17 07:43 | Diag Imaging Result Doc PS360 ---
EXAM: FOOT 2 VIEWS LEFT 05/17/2019 HISTORY: r/o osteomyelitis TECHNIQUE: Left foot two views COMMENT: There is generalized osteopenia. There is dorsal and plantar spurring of the calcaneus. There is some erosion of the base of the first proximal phalanx medially. There is some rarefaction of the adjacent portion of the head of the first metatarsal as well. This may be due to arthritis but please correlate clinically. Otherwise there is no definite evidence of erosion or periosteal reaction. IMPRESSION: Patchy osteoporosis. 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 Erosions at the first metatarsophalangeal joint as described. Electronically signed by Choco Gayle 05/17/2019 7:40 AM
[2019-05-17] MEDS ORDERED: VANCOMYCIN 2,000 MG in NS 500 ML IV ONE (08:00)
[2019-05-17] MEDS: ZOSYN 3.375 GM in NS 50 ML IV SCH ×3 (08:25→18:29)
[2019-05-17] MEDS: NS 1,000 ML IV SCH ×2 (08:59→22:41)
[2019-05-17] MEDS ORDERED: NORCO-5 PO PRN (10:17)
[2019-05-17 10:45] LABS: INR 1.18; PROTIME 15.2 Seconds (11.0-16.0)
[2019-05-17 10:47] LABS: PTT 48.3 Seconds (22.3-41.8)
[2019-05-17 11:00] LABS: IRON SATURATION 24 %; TIBC 211 ug/dL; TOTAL IRON 51 ug/dL (53-167); UNBOUND IRON 160 ug/dL (112-346)
[2019-05-17] MEDS: KEPPRA PO SCH ×2 (11:10→23:31)
[2019-05-17] MEDS: NEURONTIN PO SCH ×2 (11:11→21:20)
[2019-05-17] MEDS: DIFLUCAN PO SCH (11:11)
[2019-05-17 11:19] LABS: CK INDEX 2.3 (0.0-2.5); CK-MB 5.34 ng/mL (0.0-5.0)
[2019-05-17] MEDS: PROTONIX IV SCH (13:22)
[2019-05-17] MEDS: ZYVOX 600 MG/D5W 600 MG/300 ML IVPB IV SCH (13:22)
[2019-05-17] MEDS: SODIUM CHLORIDE 0.9% INJ SCH (13:22)
[2019-05-17 13:45] LABS: URINE SOURCE CATH
[2019-05-17 13:53] LABS: BILIRUBIN URINE NEGATIVE (NEGATIVE); BLOOD URINE MODERATE (NEGATIVE); COLOR YELLOW; GLUCOSE URINE NEGATIVE (NEGATIVE); KETONE URINE NEGATIVE (NEGATIVE); LEUKOCYTES URINE LARGE (NEGATIVE); NITRITE URINE NEGATIVE (NEGATIVE); PH URINE 6.5; PROTEIN URINE TRACE mg/dL (NEGATIVE); SP GRAVITY URINE 1.006; TURBIDITY URINE CLEAR (CLEAR); UROBILINOGEN URINE NORMAL (NORMAL)
[2019-05-17 13:54] LABS: UR EPITHELIAL CELLS <10 /HPF (<10); URINE BACTERIA NEGATIVE /HPF; URINE RBC <10 /HPF (<10); URINE WBC 20-40 /HPF (<10)
--- NOTE | 2019-05-17 15:36 | PROGRESS NOTE ---
DATE: 05/17/2019 SUBJECTIVE: When I evaluated this patient he was basically drowsy, he was not following commands for me. I had a conversation with the nurse and she told me that he has been that way on and off, at some point, he was responsive to her and following commands and actually he took some of his pills he is he is able to open up his eyes a little bit with pain stimulation and also when I move him, he is on vasopressors. He is septic with septic shock, probably coming from the urine and/or right lower lobe pneumonia. He is full code, palliative care nurse already contacted the family. I will continue with broad spectrum antibiotics since he has chronic kidney disease. I will switch the vancomycin for linezolid, I will stop the levofloxacin because that can cause allergies to the this patient. I will continue with Zosyn. On the other hand, I will replace the Mahajan catheter. OBJECTIVE: Vital Signs: Temperature 97.3 degrees, pulse 68, respiratory rate 23, blood pressure 104/55, oxygen saturation 97% on room air. HEENT: Head normocephalic, no trauma, PERRLA. Neck: Supple. No JVD. No masses. Central trachea. Chest: Some crepitus at the bases mostly on the right side base, but overall good air entry bilaterally. Abdomen: Soft, nondistended. Extremities: No cyanosis, he has an infected left great toe, left great toenail bed. Neurological: This patient is just sleepy, drowsiness, apparently he is paraplegic, but I cannot have any evidence of that with my physical exam, he opened up his eyes and then falls back to sleep again immediately. LABORATORY: WBC 11.4, hemoglobin 5.8, hematocrit 19.4, platelets 351,000, sodium 132, potassium 4.5, chloride 100, bicarbonate 20, BUN 22, creatinine 1.2 glucose 100 calcium 8.4. High sensitive troponin 525. Albumin 2.4 Mahajan acid 3.7. ASSESSMENT AND PLAN: 1. Septic shock, likely due to pneumonia, right lower lobe pneumonia, urinary tract infection. I will keep this patient on IV fluids as well as broad-spectrum antibiotics. I will stop the vancomycin due to nephrotoxicity and I will put this patient on Zyvox. I will stop the levofloxacin because he is allergic to that medication and I will continue with Zosyn. Like I said, I will continue with vasopressors and monitor this patient closely. 2. Healthcare associated pneumonia. Continue with antibiotics. 3. Urinary tract infection. I will change the Mahajan catheter and I will continue with antibiotics. 4. Paraplegia. Aware, I cannot have any evidence of this with my physical exam because of this because this patient is basically drowsy/lethargic. 5. Profound anemia, status post 2 units of packed red blood cells. I will repeat a hemoglobin at 6 p.m. and I will transfuse if the hemoglobin is still below 7, his folic acid is low and I will replace it. 6. Encephalopathy, probably this is related to infectious encephalopathy, I will continue with the same management for now. As per the nurse, he has been awake on and off. 7. Diabetes. Continue with sliding scale insulin and pattern of blood sugar. 8. History of seizure disorder. Continue with seizure precaution. Continue with Keppra. 9. Chronic indwelling Mahajan catheter. I will replace it. 10. Infected left great toe. Continue with same management for now. 11. Metastatic prostate cancer to the bone, especially spine, Oncology Department has been consulted. That is probably the reason why the alkaline phosphatase is elevated. 12. Deep vein thrombosis prophylaxis with sequential compression devices. 13. GI prophylaxis. I will stop the p.o. omeprazole and put him on Protonix twice a day IV. 14. On the other hand, due to his severe anemia, I am waiting for occult blood in the stool to see if he is having some kind of gastrointestinal bleed. CRITICAL CARE TIME: 35 minutes. cc: Remberto Mcelroy MD
[2019-05-17] MEDS: FOLIC ACID 1 MG in NS 50 ML IV SCH (16:15)
[2019-05-17 19:13] LABS: HEMATOCRIT 28.3 % (42.0-52.0)
[2019-05-17] MEDS: LIPITOR PO SCH (21:20)
[2019-05-17] MEDS: PATIENT'S OWN MED PO SCH (21:21)
[2019-05-18] MEDS: ZOSYN 3.375 GM in NS 50 ML IV SCH ×4 (00:09→18:18)
[2019-05-18] MEDS: ZYVOX 600 MG/D5W 600 MG/300 ML IVPB IV SCH ×2 (00:09→12:36)
[2019-05-18] MEDS: PROTONIX IV SCH ×2 (00:10→12:36)
[2019-05-18 06:16] LABS: BASO# 0.02 X1000 (0.0-0.2); BASO% 0.1 % (0.0-0.8); EOS# 0.07 X1000 (0.0-0.7); EOS% 0.5 % (0.0-10.0); HEMATOCRIT 26.2 % (42.0-52.0); HEMOGLOBIN 8.3 g/dL (14.0-18.0); IMM GRAN# 0.11 X1000 (0.0-0.04); IMM GRAN% 0.8 % (0.0-0.5); LYMPH# 0.71 X1000 (1.2-3.4); MCHC 31.7 g/dL (33-37); MCV 69.5 FL (81-99); MONO# 1.34 X1000 (0.11-0.59); MONO% 9.4 % (1.7-9.3); MPV 8.2 FL (7.4-10.4); NEUT# 12.08 X1000 (1.4-6.5); NEUT% 84.2 % (42.2-75.2); PLT 297 X1000 (130-400); RBC 3.77 XMIL (4.7-6.1); RDW 25.6 % (11.5-14.5); WBC 14.33 X1000 (4.8-10.8)
[2019-05-18 06:28] LABS: HEMOGLOBIN A1C 5.5 % (4.8-6.0)
[2019-05-18] MEDS: HUMALOG SUBQ SCH ×4 (06:34→22:17)
[2019-05-18 06:49] LABS: AGAP 14; ALB/GLOB RATIO 0.8; ALBUMIN 2.4 g/dL (3.5-5.0); ALKALINE PHOSPHATASE 1637 U/L (32-122); BUN 17 mg/dL (8-22); CALCIUM 7.7 mg/dL (8.8-10.2); CHLORIDE 106 mmol/L (98-107); COSMO 277; CREATININE 1.2 mg/dL (0.7-1.2); ESTIMATED GFR > 60; GLUCOSE 129 mg/dL (70-104); GOT 14 U/L (10-34); GPT < 5 U/L (10-44); MAGNESIUM 1.6 mg/dL (1.5-2.7); PHOSPHORUS 2.9 mg/dL (2.7-4.5); SODIUM 137 mmol/L (136-145); TCO2 17 mmol/L (25-35); TOTAL BILIRUBIN 0.99 mg/dL (0.20-1.00); TOTAL PROTEIN 5.4 g/dL (6.3-8.3)
[2019-05-18 08:43] LABS: LYMPHS 6 % (21-51); MONO 8 % (1-9); NRBC 1 % (0-0); SEGS 86 % (42-75)
[2019-05-18 08:44] LABS: ANISOCYTOSIS 2+; HYPOCHROM 2+; MICROCYTOSIS 3+; POIKILOCYTOSIS 1+; TARGET CELLS 1+
[2019-05-18] MEDS: NS 1,000 ML IV SCH (08:59)
[2019-05-18] MEDS ORDERED: VANCOMYCIN 1,500 MG in NS 250 ML IV SCH (09:00)
[2019-05-18] MEDS: NEURONTIN PO SCH ×2 (09:06→22:15)
[2019-05-18] MEDS: PATIENT'S OWN MED PO SCH ×2 (09:20→22:27)
[2019-05-18] MEDS: KEPPRA PO SCH ×2 (10:43→22:15)
--- NOTE | 2019-05-18 11:20 | PROGRESS NOTE ---
DATE: 05/18/2019 SUBJECTIVE: The patient seems to be more awake compared to yesterday, he is answering my questions. He is following commands, his answers are slow though. He is still on vasopressors. We have a positive urine culture that showed gram-negative rods. Blood culture negative so far. OBJECTIVE: Vital Signs: Temperature 98.6 degrees, pulse 91, respiratory rate 22, blood pressure 109/56, oxygen saturation 99% on room air. HEENT: Head normocephalic. No trauma. PERRLA. Neck: Supple. No JVD. No masses. Central trachea. Chest: He has some crepitus at the bases mostly on the right base but overall he has good air entry bilaterally. Abdomen: Soft, is nondistended. Extremities: He has an infected left great toenail bed. He has some edema mostly of the left upper extremity. Neurological: Patient is awake. His answers are slow but appropriate, he is following commands. LABORATORY: WBC 14.3, hemoglobin 8.3, hematocrit 26.2, platelet 297,000. Sodium 137, potassium 4, chloride 106, bicarbonate 17, BUN 17, creatinine 1.2, glucose 129, calcium 7.7, magnesium 1.6, alkaline phosphatase 1637, albumin 2.4. ASSESSMENT AND PLAN: 1. Septic shock, likely due to right lower lobe pneumonia, urinary tract infection, urine culture showed gram-negative rods. I will continue with broad-spectrum antibiotics. He is still on vasopressors. 2. Healthcare-associated pneumonia. Continue with antibiotics. 3. Urinary tract infection due to gram-negative rods as per number 1. 4. Paraplegia, aware. 5. Profound anemia status post 2 packed red blood cells. His hemoglobin improved from 5.8 to 8.3 today after 2 units of packed red blood cells. 6. Encephalopathy, likely related to the infectious process, infectious encephalopathy, but today he seems to be awake and following commands. 7. Back ulcer, negative cultures so far. We will monitor. 8. History of seizure disorder. Continue with seizure medication. 9. Diabetes. Actually his hemoglobin A1c is really good at 5.5, I will not do any changes. 10. Chronic indwelling Mahajan catheter, likely the cause of infection, it has been replaced yesterday. 11. Infected left great toe. Continue with antibiotics for now. 12. Metastatic prostate cancer to the bone, especially spine, as per the patient this is why he is paraplegic. 13. Deep venous thrombosis prophylaxis with sequential compression devices. 14. Gastrointestinal prophylaxis. Continue proton pump inhibitors twice a day intravenous due to severe anemia. 15. Pending occult blood in the stool. 16. Also, he has some erosions at the first metatarsophalangeal joint, I will continue with same management for now. CRITICAL CARE TIME: 35 minutes. cc: Remberto Mcelroy MD
[2019-05-18] MEDS: FOLIC ACID 1 MG in NS 50 ML IV SCH (16:07)
[2019-05-18] MEDS: LIPITOR PO SCH (22:15)
[2019-05-18] MEDS ORDERED: BLISTEX MEDICATED BERRY LIP BALM TOP PRN (22:25)
[2019-05-19] MEDS: ZYVOX 600 MG/D5W 600 MG/300 ML IVPB IV SCH ×2 (01:07→13:42)
[2019-05-19] MEDS: PROTONIX IV SCH ×2 (01:08→13:41)
[2019-05-19] MEDS: ZOSYN 3.375 GM in NS 50 ML IV SCH ×2 (01:08→06:24)
[2019-05-19] MEDS: NS 1,000 ML IV SCH (01:08)
[2019-05-19 06:28] LABS: ESTIMATED GFR > 60
[2019-05-19 06:29] LABS: AGAP 11; ALB/GLOB RATIO 0.4; ALBUMIN 1.6 g/dL (3.5-5.0); ALKALINE PHOSPHATASE 995 U/L (32-122); BUN 15 mg/dL (8-22); CALCIUM 8.1 mg/dL (8.8-10.2); CHLORIDE 107 mmol/L (98-107); COSMO 273; CREATININE 1.1 mg/dL (0.7-1.2); GLUCOSE 94 mg/dL (70-104); GOT 9 U/L (10-34); GPT < 5 U/L (10-44); MAGNESIUM 1.7 mg/dL (1.5-2.7); PHOSPHORUS 2.9 mg/dL (2.7-4.5); POTASSIUM 3.6 mmol/L (3.5-5.1); SODIUM 136 mmol/L (136-145); TCO2 18 mmol/L (25-35); TOTAL BILIRUBIN 0.68 mg/dL (0.20-1.00); TOTAL PROTEIN 5.4 g/dL (6.3-8.3)
--- NOTE | 2019-05-19 06:55 | Diag Imaging Result Doc PS360 ---
EXAM: CHEST-PORTABLE 05/19/2019 HISTORY: dyspnea TECHNIQUE: AP portable at 0608 COMMENT: There is increasing interstitial opacity throughout both lungs particularly in the lower lung santizo compared to 05/17/2019. IMPRESSION: Worsening interstitial pulmonary edema. Electronically signed by Choco Gayle 05/19/2019 6:52 AM
[2019-05-19 07:07] LABS: BASO# 0.01 X1000 (0.0-0.2); BASO% 0.1 % (0.0-0.8); EOS# 0.19 X1000 (0.0-0.7); EOS% 1.5 % (0.0-10.0); HEMOGLOBIN 6.9 g/dL (14.0-18.0); IMM GRAN% 0.8 % (0.0-0.5); LYMPH# 0.63 X1000 (1.2-3.4); LYMPH% 4.9 % (20.5-51.1); MCH 21.6 PG (27-31); MCHC 31.4 g/dL (33-37); MONO# 1.24 X1000 (0.11-0.59); MONO% 9.7 % (1.7-9.3); MPV 8.7 FL (7.4-10.4); NEUT# 10.58 X1000 (1.4-6.5); PLT 265 X1000 (130-400); RBC 3.19 XMIL (4.7-6.1); RDW 26.2 % (11.5-14.5); WBC 12.75 X1000 (4.8-10.8)
[2019-05-19] MEDS ORDERED: NS 500 ML IV ONE (07:21)
[2019-05-19 07:36] LABS: LYMPHS 6 % (21-51); MONO 8 % (1-9); SEGS 86 % (42-75)
[2019-05-19] MEDS: HUMALOG SUBQ SCH ×4 (08:59→20:15)
[2019-05-19] MEDS: PATIENT'S OWN MED PO SCH ×2 (08:59→20:16)
[2019-05-19] MEDS: NEURONTIN PO SCH ×2 (09:00→20:15)
[2019-05-19] MEDS: KEPPRA PO SCH ×2 (11:00→21:35)
[2019-05-19] MEDS ORDERED: LASIX IV ONE (11:16)
--- NOTE | 2019-05-19 11:54 | PROGRESS NOTE ---
DATE: 05/19/2019 SUBJECTIVE: No acute events overnight. At the moment of my physical exam, he was sleeping. His infected left great toe seems to be better. It is draining a little bit of pus though. He is no longer on pressors. X-ray showed some worsening interstitial pulmonary edema, probably because of the IV fluids, which were stopped already. I will go ahead and give him a low dose of Lasix to see how he does. I will start with 20 x1 and monitor. His vital signs are more stable. Like I said, he is not on pressors. He has chronic kidney disease, and seems to be stable at this point. White blood cell count is decreased compared with yesterday. OBJECTIVE: Vital Signs: Temperature 97.3 degrees, pulse 72, respiratory rate 18, blood pressure 106/49, oxygen saturation 100% on room air. HEENT: Head normocephalic. No trauma. PERRLA. Neck: Supple. No JVD. No masses. Central trachea. Chest: He has some crepitus at the bases, mostly at the right base, but good entry bilaterally. Scattered crackles. Abdomen: Soft, nondistended. Extremities: He has an infected left great toenail bed. It is draining a little bit of pus, but seems to be getting better. He has some edema, mostly on the left lower extremity. Neurological: The patient is sleeping, but arousable. LABORATORY DATA: WBC 12.7, hemoglobin 6.9, hematocrit 22, platelets 265,000. Sodium 136, potassium 3.6, chloride 107, bicarbonate 18, BUN 15, creatinine 1.1, glucose 94, calcium 8.1, alkaline phosphatase 995. ASSESSMENT AND PLAN: 1. Septic shock due to right lower lobe pneumonia or urinary tract infection. His urine culture showed gram-negative rods, and actually he has an ulcer in the sacral area that is growing gram-negative rods as well. We just had the result back from the urine culture that showed extended spectrum beta-lactamase Klebsiella pneumoniae, so I will stop the Zosyn, and I will put him on meropenem. 2. Healthcare-associated pneumonia. Continue with antibiotics. 3. Urinary tract infection due to extended spectrum beta-lactamase Klebsiella. I will put this patient on meropenem. 4. 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 5. Profound anemia, status post 2 units of packed red blood cells. His hemoglobin improved from 5.8 to 8.3, but now it is back down to 6.9. He will receive 1 more unit of packed red blood cells. I will put him on Protonix twice a day and Carafate, and Gastroenterology Department has been consulted. 6. Encephalopathy, likely related to the infectious process, better. 7. Sacral ulcer and right hip ulcer. The right hip ulcer looks fine. The sacral ulcer is growing gram-negative rods. He has been on Zosyn and now on meropenem, which I will continue. Wound Care has been consulted as well. 8. History of seizure disorder. Continue with seizure medication. 9. Diabetes. Actually, his hemoglobin A1c is good at 5.5. I will not do any changes. 10. Infected left great toe. Still draining some pus, but getting better. 11. Metastatic prostate cancer to the bone, especially spine, the reason why this patient is paraplegic. 12. Deep vein thrombosis prophylaxis with sequential compression devices. 13. Gastroesophageal reflux disease. Continue proton pump inhibitors twice a day. 14. Gastrointestinal bleed with positive occult blood in the stool, and the hemoglobin actually dropped compared with yesterday, and he will receive 1 unit. Critical care time 35 minutes. cc: Remberto Mcelroy MD
[2019-05-19] MEDS: MERREM 1 GM in NS 50 ML IV SCH ×2 (13:41→19:34)
[2019-05-19] MEDS: CARAFATE LIQUID PO SCH ×2 (13:41→19:34)
[2019-05-19] MEDS: FOLIC ACID 1 MG in NS 50 ML IV SCH (14:59)
--- NOTE | 2019-05-19 17:45 | GASTROENTEROLOGY CONSULTATION ---
DATE: 05/19/2019 REQUESTING PHYSICIAN: Remberto Mcelroy MD REASON FOR CONSULTATION: Positive Hemoccult anemia requiring blood transfusion. HISTORY OF PRESENT ILLNESS: Mr. Hogan is a 69-year-old male, who was admitted on 05/17/2019 for symptoms of left-sided flank pain. The patient has history of multiple medical comorbid conditions including metastatic prostate cancer, paraplegia, chronic indwelling Mahajan catheter, spinal fracture, diabetes, hypertension, sleep apnea. During a part of the workup the patient was diagnosed with septic shock due to right lower lobe pneumonia and UTI and healthcare-associated pneumonia. He was also noted to be anemic, which got worse and he was transfused a total of 3 units since admission, in the last 2 days. There is no documented nausea, vomiting, vomiting blood or passing blood in the stools. The stool is described as soft brown. The stool was tested for Hemoccult, which was positive. [employer] was referred for further management. The patient is a poor historian. He only provided me with some limited information, but he denies any history of recent EGD or colonoscopy. He denies any previous history of ulcers. PAST MEDICAL HISTORY: Of metastatic prostate cancer, spinal fracture, paraplegia, diabetes mellitus, hypertension, sleep apnea, chronic indwelling Mahajan catheter. PAST SURGICAL HISTORY: Left nephrectomy and hip surgery and back surgery. SOCIAL HISTORY: No history of smoking, alcohol, or illicit drug abuse. ALLERGIES TO: Levaquin. REVIEW OF SYSTEMS: Was limited, but the patient denies any vomiting blood or passing blood or nosebleeds or black stools. Denies any recent EGD or colonoscopy. MEDICATIONS IN THE HOSPITAL: Atorvastatin, Carafate, Blistex medicated valverde lip balm, fluconazole, folic acid, gabapentin, [place] 5, Humalog iron C b.i.d., Keppra and norepinephrine drip, meropenem, normal saline 30 mL/h, Protonix 40 mg b.i.d., linezolid and Lasix x1. The patient is on a mechanical soft diet. FAMILY HISTORY: Noncontributory. PHYSICAL EXAM: Vital signs: Temperature 98 degrees, pulse of 75, respiratory 16, blood pressure 101/51, saturating 100% on room air. Body weight of 129 pounds 11.2 ounces. BMI 17.6 kg. General: Thinly built male lying in bed in no acute distress. HEENT: Positive pallor. No icterus. Pupils equal, reactive to light and accommodation. Neck: Supple. Abdomen: Soft, nondistended. No guarding. No rebound. Mahajan catheter was noted. Extremity: Infected left great toenail bed some mild lower extremity edema. Neuro: He was awake and oriented, able to answer some simple questions. He has baseline paraplegia secondary to history of spinal fracture. LABS: His H and H is 6.9 and 22. White count of 12.75, MCV of 69, platelet count 265,000. Sodium 137, potassium 3.6, chloride 107, bicarb of 18, anion gap of 11, BUN of 15 creatinine 1.1, glucose of 104, calcium is 8.1, phosphorus 2.9, magnesium 1.7. INR 1.1, and PT of 15.2, PTT of 48.3. Percent saturation iron is 25%. Iron of 51, ferritin of 6254. Total bilirubin is 0.68, AST 9, ALT less than 5, alkaline phosphatase is 95, total protein is 5.4, albumin of 1.6. B12 of 1.45, folate of 3.7. Urinalysis is showing trace protein, moderate blood and large leukocytes. Stool Hemoccult was positive. Urine culture showing no growth. He has a sacral decubitus stage IV and a culture showing gram-negative rods. Urine culture initially had shown Klebsiella pneumonia, which was positive for ESBL. Blood culture had shown initially no growth after [address] scan was done on 05/17/2019, for hematuria, which showed mixed lytic and sclerotic osseous metastatic disease particularly in the lower thoracic and upper lumbar spine. Sclerotic metastasis in the left ischium. They appear to be largely stable since 04/07/2019. Bilateral pleural effusions. Compressive atelectasis in both lower lobes, no evidence of obstructive uropathy or nephrolithiasis. The possibility of cystitis can't be excluded. A sacral decubitus ulcer with possible sacral osteomyelitis. The possibility of additional destructive metastasis cannot be excluded. Ventral hernia without evidence of obstruction. IMPRESSION AND PLAN: 1. Anemia requiring 3 units of blood transfusion and positive Hemoccult, but no signs of overt gastrointestinal bleeding, and mildly low iron levels and elevated ferritin level. This could be a presentation of anemia of chronic disease. Further workup by hematology may be needed. The patient has followed with Dr. Caceres for metastatic for prostate cancer. We may have to proceed with hemoglobin electrophoresis, or take an opinion from printed products assembler regarding his heart his recent anemia. He is having some microscopic hematuria, which over the course of time, may contribute to anemia. We will address profound anemia with Protonix twice daily and Carafate 1g every 6 hours. We will start him on Iron C b.i.d. and watch the blood counts and the patient needs to be transfuse as needed. 2. Septic shock. Due to the right lower lobe pneumonia and urinary tract infection. He also has stage IV sacral decubitus ulcer, which is growing gram-negative rods. He is being covered with meropenem per the primary team. 3. Healthcare-associated pneumonia. He is on antibiotics. 4. Urinary tract infection due to extended spectrum beta-lactamases Klebsiella. He is on meropenem. 5. Paraplegia secondary metastatic spine disease. 6. Encephalopathy likely secondary sepsis sacral ulcer and right hip culture being managed by primary team. 7. History of seizure disorder. Aware. 8. Diabetes being managed by primary team. 9. Infected left great toe. 10. Metastatic prostate cancer with mets to the spine, being followed by Dr. Caceres. 11. Deep vein thrombosis prophylaxis with sequential compression devices. 12. Gastrointestinal prophylaxis with Protonix. The above plan is discussed with the patient's nurse and also I spoke with Dr. Nelson. Please call us with any further questions. cc: MD Remberto Garcia MD Sammy Becdach, MD [facility] [place] DIVISIONManpreet
[2019-05-19] MEDS: LIPITOR PO SCH (20:15)
[2019-05-19] MEDS: ICAR-C PO SCH (20:15)
[2019-05-20] MEDS: SODIUM CHLORIDE 0.9% INJ SCH ×2 (00:53→13:08)
[2019-05-20] MEDS: PROTONIX IV SCH ×2 (00:53→13:08)
[2019-05-20] MEDS: ZYVOX 600 MG/D5W 600 MG/300 ML IVPB IV SCH ×2 (00:53→13:08)
[2019-05-20] MEDS: MERREM 1 GM in NS 50 ML IV SCH ×3 (03:28→19:08)
[2019-05-20] MEDS: CARAFATE LIQUID PO SCH ×4 (03:28→19:33)
[2019-05-20 05:34] LABS: BASO# 0.01 X1000 (0.0-0.2); BASO% 0.1 % (0.0-0.8); EOS# 0.22 X1000 (0.0-0.7); EOS% 2.1 % (0.0-10.0); HEMATOCRIT 26.5 % (42.0-52.0); HEMOGLOBIN 8.4 g/dL (14.0-18.0); IMM GRAN# 0.11 X1000 (0.0-0.04); IMM GRAN% 1.1 % (0.0-0.5); LYMPH# 0.85 X1000 (1.2-3.4); LYMPH% 8.2 % (20.5-51.1); MCH 22.3 PG (27-31); MCHC 31.7 g/dL (33-37); MCV 70.5 FL (81-99); MONO# 1.04 X1000 (0.11-0.59); MPV 8.3 FL (7.4-10.4); NEUT# 8.19 X1000 (1.4-6.5); NEUT% 78.5 % (42.2-75.2); PLT 242 X1000 (130-400); RBC 3.76 XMIL (4.7-6.1); RDW 26.4 % (11.5-14.5); WBC 10.42 X1000 (4.8-10.8)
[2019-05-20 06:01] LABS: ESTIMATED GFR > 60
[2019-05-20 06:09] LABS: AGAP 12; ALB/GLOB RATIO 0.4; ALBUMIN 1.6 g/dL (3.5-5.0); ALKALINE PHOSPHATASE 948 U/L (32-122); BUN 12 mg/dL (8-22); CALCIUM 8.3 mg/dL (8.8-10.2); CHLORIDE 107 mmol/L (98-107); COSMO 271; CREATININE 1.1 mg/dL (0.7-1.2); GLUCOSE 93 mg/dL (70-104); GOT 10 U/L (10-34); GPT < 5 U/L (10-44); MAGNESIUM 1.8 mg/dL (1.5-2.7); PHOSPHORUS 2.8 mg/dL (2.7-4.5); POTASSIUM 4.1 mmol/L (3.5-5.1); SODIUM 136 mmol/L (136-145); TCO2 17 mmol/L (25-35); TOTAL BILIRUBIN 0.88 mg/dL (0.20-1.00); TOTAL PROTEIN 5.8 g/dL (6.3-8.3)
--- NOTE | 2019-05-20 06:50 | Diag Imaging Result Doc PS360 ---
EXAM: CHEST-PORTABLE HISTORY: dyspnea TECHNIQUE: Single view COMPARISON: 05/19/2019 FINDINGS: There is a moderate-sized right pleural effusion with a small left pleural effusion. Worsening infiltrates in both mid and lower lungs. There is basilar atelectasis. No cardiomegaly. No change in the right portacatheter. IMPRESSION: Interval worsening Electronically signed by Emmanuel Pak 05/20/2019 6:48 AM
[2019-05-20] MEDS: HUMALOG SUBQ SCH ×4 (07:09→21:00)
[2019-05-20] MEDS ORDERED: LASIX IV ONE (07:24)
[2019-05-20] MEDS: PATIENT'S OWN MED PO SCH (09:50)
[2019-05-20] MEDS ORDERED: ZOFRAN IV ONE (09:56)
[2019-05-20] MEDS ORDERED: ZOFRAN IV PRN (09:56)
[2019-05-20] MEDS: FOLIC ACID PO SCH (09:58)
[2019-05-20] MEDS: NEURONTIN PO SCH ×2 (09:58→20:20)
[2019-05-20] MEDS: ICAR-C PO SCH ×2 (09:58→20:20)
--- NOTE | 2019-05-20 10:56 | GASTROENTEROLOGY PROGRESS NOTE ---
DATE: 05/20/2019 SUBJECTIVE: Mr. Hogan is a 69-year-old male, resting in bed. The patient is on a mechanical soft diet and is able to tolerate his diet fairly well with assistance, he is paraplegic . The patient had a couple of bowel movements yesterday, and as per the nursing staff they denied noticing blood in his stools. OBJECTIVE: Vital Signs: Temperature 98.1 degrees, pulse 91, respirations 21, blood pressure 96/68, oxygen saturation 100% on room air. The patient's weight is 215 pounds. BMI is 29.2 kg/m2. General: He is alert, oriented x3, and in no acute distress. HEENT: Pale conjunctivae. No icterus. PERRL. Neck: Supple. Lungs: Wheezing heard in the anterior santizo. Cardiovascular: Regular rate and rhythm. Abdomen: Soft, nondistended, nontender. Active bowel sounds heard in all 4 quadrants. Extremities: No clubbing, no cyanosis., Generalized edema with infected left great toenail. Neurologic: Alert and oriented x3. Extremities have weakness in the lower and upper extremities. LABS: WBCs are 10.42, RBCs 3.76, hemoglobin is 8.4, hematocrit is 26.5, platelet count is 242,000. Sodium 136, potassium 4.1, chloride 107, carbon dioxide 17, anion gap 12, BUN 12, creatinine is 1.1, glucose 93, calcium 8.3, phosphorus 2.8, magnesium 1.8, total bilirubin 0.88, AST 10, ALT less than 5, alkaline phosphatase 948, albumin is 1.6. Chest x-ray today showed interval worsening. IMPRESSION AND PLAN: Likely Anemia of chronic disease UTI Encephalopathy Metastatic prostate cancer Pneumonia Positive Hemoccult Stage IV sacral Decubitus ulcer Parapelgia PLAN: Mr. Hogan is a 69-year-old male with a history of metastatic prostate cancer with metastasis to the spine. GI is following him for his anemia. The patient's hemoglobin and hematocrit currently are 8.4 and 26.5. It has been trending upwards. The patient has so far received 3 units of blood. As per the nursing staff, they have denied noticing any further bleeding episodes. We will continue patient with PPIs twice a day. He is on antibiotics, Zyvox and Merrem for his UTI and pneumonia. The patient is receiving Carafate 1 gram p.o. every 6 hours. He is also on folic acid and iron tablet for his anemia. We will continue to monitor his hemoglobin and hematocrit and follow the plan of care per PCP. This plan was discussed with Dr. Santana. Please call us for any further questions or concerns. Dictated by CAROL Boles for Brandon Santana MD cc: Brandon Santana MD I have seen and examined the patient myself and I agree with the above plan of care. Please call us with any questions or concerns. ABRAHAM
[2019-05-20] MEDS: KEPPRA PO SCH ×2 (11:10→22:25)
--- NOTE | 2019-05-20 11:35 | PROGRESS NOTE ---
DATE: 05/20/2019 SUBJECTIVE: No acute events overnight. He received a unit of PRBC, and the hemoglobin improved from 6.9 to 8.4. The patient has been evaluated by Gastroenterology Department, pending an evaluation by Hematology/Oncology Department today. I will continue with the same management for now. He seems to be getting better. He is not on pressors now. OBJECTIVE: Vital Signs: Temperature 98.1 degrees, pulse 91, respiratory rate 21, blood pressure 96/68, oxygen saturation 100% on room air. HEENT: Head normocephalic. No trauma. PERRLA. Neck: Supple. No JVD. No masses. Central trachea. Chest: Crepitus at the bases, mostly on the right base. Good air entry bilaterally. Scattered crackles. Abdomen: Soft, nondistended. Extremities: He has some edema. No clubbing. No cyanosis. Neurological: The patient is awake, alert. He is following commands. He is not able to move his lower extremities due to paraplegia. LABORATORY DATA: WBC 10.4, hemoglobin 8.4, hematocrit 26.5, platelets 242,000. Sodium 136, potassium 4.1, chloride 107, bicarbonate 17, BUN 12, creatinine 1.1, glucose 93, calcium 8.3. Phosphorus 2.8, magnesium 1.8. Alkaline phosphatase 948, albumin 1.6. ASSESSMENT AND PLAN: 1. Septic shock due to right lower lobe pneumonia and urinary tract infection. Urine culture showed Klebsiella pneumoniae, extended spectrum beta-lactamase positive. He has been placed on meropenem. Continue with the same management for now. He is not on pressors. 2. Healthcare-associated pneumonia. Continue with antibiotics. 3. Pulmonary edema. I will give him 1 dose of Lasix today. 4. Urinary tract infection due to extended spectrum beta-lactamase, as per #1. 5. 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 6. Profound anemia, status post 3 packed red blood cells. He also has a positive Hemoccult. Gastroenterology Department already evaluated this patient. 7. Encephalopathy, likely related to the infectious process, better. 8. Sacral ulcer and right hip ulcer. The right hip looks fine. The sacral ulcer is deep and goes all the way down to the bone. He has a gram-negative luther in the groin. He is on meropenem. I will continue with the same management. 9. History of seizure disorder. Continue with seizure medication. 10. Diabetes. Actually, his hemoglobin A1c is good at 5.5. I will not do any changes. 11. Infected left great toe. Seems to be better. 12. Metastatic prostate cancer to the bone, especially spine. That is the reason why this patient is paraplegic. Hematology/Oncology Department has been consulted. 13. Deep vein thrombosis prophylaxis with sequential compression devices. 14. Gastrointestinal prophylaxis with proton pump inhibitors twice a day. 15. Gastrointestinal bleed with positive Hemoccult. Gastroenterology Department already evaluated this patient. I do not think they will do any kind of procedure at this moment. We will keep an eye on him. cc: Remberto Mcelroy MD
--- NOTE | 2019-05-20 12:10 | ECHO REPORT ---
ORDER DATE: 05/20/2019 INDICATION: CHF. FINDINGS: 1. The right atrium appears normal in size. 2. Mild tricuspid regurgitation. The RV systolic pressure is 49 mmHg. 3. Limited visualization of the right ventricle but overall appears to have normal systolic function. 4. No significant pulmonic insufficiency. 5. Normal left atrial size with a dimension of 2.3 cm. 6. No mitral valve prolapse. Mild appearing mitral regurgitation. 7. Normal LV size, end-diastolic dimension of 3.5 cm. Normal wall thicknesses with a posterior and interventricular septal wall thickness of 1 cm each. Normal to hyperdynamic LV systolic function with an estimated EF greater than 70%. Normal wall motion. 8. Aortic valve opens well. No evidence of stenosis or insufficiency. 9. Aorta appears normal in visualized segments. 10. No pericardial effusion identified. 11. Normal IVC size at 15 mm. cc: MD Remberto Dugan MD
[2019-05-20] MEDS: LIPITOR PO SCH (20:20)
[2019-05-21] MEDS: ZYVOX 600 MG/D5W 600 MG/300 ML IVPB IV SCH (01:40)
[2019-05-21] MEDS: PROTONIX IV SCH ×2 (01:41→13:10)
[2019-05-21] MEDS: CARAFATE LIQUID PO SCH ×4 (01:41→20:24)
[2019-05-21] MEDS: MERREM 1 GM in NS 50 ML IV SCH ×3 (04:27→19:13)
[2019-05-21 06:12] LABS: ESTIMATED GFR > 60
[2019-05-21 06:16] LABS: AGAP 10; ALB/GLOB RATIO 0.5; ALBUMIN 1.8 g/dL (3.5-5.0); ALKALINE PHOSPHATASE 874 U/L (32-122); BUN 12 mg/dL (8-22); CALCIUM 8.3 mg/dL (8.8-10.2); CHLORIDE 105 mmol/L (98-107); COSMO 269; CREATININE 1.1 mg/dL (0.7-1.2); GLUCOSE 87 mg/dL (70-104); GOT 10 U/L (10-34); GPT < 5 U/L (10-44); POTASSIUM 3.7 mmol/L (3.5-5.1); SODIUM 135 mmol/L (136-145); TCO2 20 mmol/L (25-35); TOTAL BILIRUBIN 0.66 mg/dL (0.20-1.00); TOTAL PROTEIN 5.4 g/dL (6.3-8.3)
[2019-05-21] MEDS: HUMALOG SUBQ SCH ×4 (06:33→22:53)
[2019-05-21 07:34] LABS: BASO# 0.03 X1000 (0.0-0.2); BASO% 0.4 % (0.0-0.8); EOS# 0.17 X1000 (0.0-0.7); EOS% 2.2 % (0.0-10.0); HEMATOCRIT 25.1 % (42.0-52.0); IMM GRAN# 0.08 X1000 (0.0-0.04); LYMPH% 10.5 % (20.5-51.1); MCH 22.5 PG (27-31); MCHC 31.9 g/dL (33-37); MCV 70.5 FL (81-99); MONO# 0.66 X1000 (0.11-0.59); MONO% 8.7 % (1.7-9.3); MPV 8.7 FL (7.4-10.4); NEUT# 5.89 X1000 (1.4-6.5); NEUT% 77.2 % (42.2-75.2); PLT 280 X1000 (130-400); RBC 3.56 XMIL (4.7-6.1); RDW 26.7 % (11.5-14.5); WBC 7.63 X1000 (4.8-10.8)
[2019-05-21 07:51] LABS: ANISOCYTOSIS 2+; EOS 4 % (1-10); HYPOCHROM 2+; LYMPHS 8 % (21-51); MICROCYTOSIS 2+; MONO 2 % (1-9); SEGS 86 % (42-75)
[2019-05-21 07:52] LABS: POIKILOCYTOSIS 1+; TARGET CELLS 1+
[2019-05-21] MEDS: ICAR-C PO SCH ×2 (08:47→20:25)
[2019-05-21] MEDS: FOLIC ACID PO SCH (08:47)
[2019-05-21] MEDS: NEURONTIN PO SCH ×2 (08:47→20:25)
[2019-05-21] MEDS: KEPPRA PO SCH ×2 (10:13→22:52)
--- NOTE | 2019-05-21 11:23 | PROGRESS NOTE ---
DATE: 05/21/2019 SUBJECTIVE: No acute events overnight. He seems to be awake. He is following commands. He does have generalized weakness, including paraplegia due to metastatic spine disease. His hemoglobin dropped from 8.4 to 8. Hematology/Oncology Department has been consulted. Gastroenterology Department already evaluated this patient. OBJECTIVE: Vital Signs: Temperature 97.6 degrees, pulse 79, respiratory rate 16, blood pressure 93/56, oxygen saturation 100% on room air. HEENT: Head normocephalic. No trauma. PERRLA. Neck: Supple. No JVD. No masses. Central trachea. Chest: Crepitus at the bases, mostly on the right base. Good air entry bilaterally though. Abdomen: Soft, nondistended. Extremities: Trace edema. No clubbing, no cyanosis. Neurological: The patient is awake, alert. He is following commands. He is not able to move his lower extremities due to paraplegia. Skin: He has an ulcer all the way down to the bone in his sacral area. He has a right hip ulcer as well, but it is better. LABORATORY DATA: WBC 7.6, hemoglobin 8, hematocrit 25.1, platelets 280,000. Sodium 135, potassium 3.7, chloride 105, bicarbonate 20, BUN 12, creatinine 1.1, glucose 87, calcium 8.3, albumin 1.8. ASSESSMENT AND PLAN: 1. Septic shock due to right lower lobe pneumonia and urinary tract infection. Urine culture showed Klebsiella pneumonia, extended spectrum beta-lactamase. Also, his sacral ulcer showed extended spectrum beta-lactamase Klebsiella pneumonia. He has been placed on meropenem. He is not on pressors. Continue with the same treatment. 2. Healthcare-associated pneumonia. Continue with antibiotics. 3. Pulmonary edema, status post 1 dose of Lasix. He is breathing fine, and his oxygen saturation is 100% on room air. 4. Urinary tract infection due to extended spectrum beta-lactamase Klebsiella pneumoniae, as per #1. Continue with meropenem. 5. 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 6. Profound anemia, status post 3 packed red blood cells with a positive Hemoccult. Gastroenterology Department already evaluated this patient. Pending Hematology/Oncology recommendations. 7. Encephalopathy, resolved. 8. Sacral ulcer all the way down to the bone and also right hip ulcer that is more superficial. Continue with the same management with antibiotics and wound care. 9. History of seizure disorder. Continue with seizure medication. 10. Diabetes. Actually, his hemoglobin A1c is 5.5. I will do no changes. 11. Infected left great toe, seems to be better. 12. Metastatic prostate cancer to the bone, especially spine. That is the reason why this patient is paraplegic. Hematology/Oncology Department has been consulted. 13. Deep vein thrombosis prophylaxis with sequential compression devices. 14. Gastrointestinal prophylaxis with proton pump inhibitors twice a day and Carafate. 15. Gastrointestinal bleed with positive with positive Hemoccult. Gastroenterology on board. Will continue to monitor the hemoglobin and hematocrit. This patient seems to be more stable. I will go ahead and transfer this patient to the PVC unit. cc: Remberto Mcelroy MD
--- NOTE | 2019-05-21 11:53 | GASTROENTEROLOGY PROGRESS NOTE ---
DATE: 05/21/2019 SUBJECTIVE: Mr. Hogan is a 69-year-old male, resting in bed. The patient has denied any nausea, vomiting, abdominal pain and as per the nursing staff, they have denied noticing any blood in his stools. The patient is on a mechanical soft diet and is able to tolerate his diet fairly well. OBJECTIVE: Vital Signs: Temperature 97.1 degrees, pulse 70, respirations 14, blood pressure 111/69, oxygen saturation 100% on room air. The patient's weight is 245 pounds, BMI is 33.3 kg/m2. General: He is alert, oriented x3, in no acute distress. HEENT: Pale conjunctivae. No icterus. PERRL. Neck: Supple. Lungs: Wheezing heard in the anterior santizo. Cardiovascular: Regular rate and rhythm. Abdomen: Soft, nondistended, nontender. Active bowel sounds heard in all 4 quadrants. Extremities: No clubbing, no cyanosis. Generalized edema in the lower extremities with infected left great toe. The patient has weakness in the lower and upper extremities. Neurologic: Alert and oriented x3. LABORATORY DATA: WBCs are 7.60, RBCs 3.56, hemoglobin 8.0, hematocrit is 25.1, platelet count is 280,000. Sodium 135, potassium 3.7, chloride 105, carbon 20, anion gap is 10, BUN 12, creatinine is 1.1, glucose 87, calcium 8.3. Total bilirubin is 0.66, AST 10, ALT is less than 5, alkaline phosphatase is 874. Albumin is 1.8. IMPRESSION AND PLAN: - Anemia, unspecified - Folate deficiency anemia - Positive FOBT - UTI - Metastatic prostate cancer - Stage IV sacral decubitus ulcer PLAN: Mr. Hogan is a 69-year-old male with a history of metastatic prostate cancer which has metastasized to the spine. GI is following him for his anemia. The patient's hemoglobin and hematocrit has trended downward, it is 8.0 and 25.1. As per the nursing staff, they have not noticed any bleeding episodes. We will continue patient with PPIs twice a day. He is also receiving folic acid and iron for his anemia. The patient is on antibiotic Merrem. We will continue to monitor his hemoglobin and hematocrit and if it drops below 7, we will transfuse PRBC's protocol. This plan was discussed with Dr. Hudson. Please call us for any further questions or concerns. Dictated by CAROL Boles for Kirby Hudson MD Physician Attestation I have seen and examined the patient. I have discussed and reviewed the note by Kanika MEDINA and agree with findings and plan as documented. He is not having any overt GI bleeding and without transfusion requirements as this time. Recommend conservative mgmt for now given his multiple medical problems including underlying metastatic prostate cancer. Recommend stopping carafate as it does not offer additional acid suppression over twice daily PPI. MTDD
[2019-05-21] MEDS: SODIUM CHLORIDE 0.9% INJ SCH (13:11)
[2019-05-21] MEDS: LIPITOR PO SCH (20:25)
[2019-05-22] MEDS: SODIUM CHLORIDE 0.9% INJ SCH (02:31)
[2019-05-22] MEDS: CARAFATE LIQUID PO SCH ×2 (02:31→08:26)
[2019-05-22] MEDS: MERREM 1 GM in NS 50 ML IV SCH ×3 (02:31→19:58)
[2019-05-22] MEDS: PROTONIX IV SCH ×2 (02:31→12:16)
[2019-05-22 05:55] LABS: HEMATOCRIT 26.3 % (42.0-52.0); HEMOGLOBIN 8.3 g/dL (14.0-18.0)
[2019-05-22 06:17] LABS: ESTIMATED GFR > 60
[2019-05-22 06:34] LABS: AGAP 12; ALB/GLOB RATIO 0.5; ALBUMIN 1.9 g/dL (3.5-5.0); ALKALINE PHOSPHATASE 911 U/L (32-122); BUN 13 mg/dL (8-22); CALCIUM 8.6 mg/dL (8.8-10.2); CHLORIDE 105 mmol/L (98-107); COSMO 271; GLUCOSE 87 mg/dL (70-104); GOT 10 U/L (10-34); GPT < 5 U/L (10-44); POTASSIUM 3.7 mmol/L (3.5-5.1); SODIUM 136 mmol/L (136-145); TCO2 19 mmol/L (25-35); TOTAL PROTEIN 5.8 g/dL (6.3-8.3)
[2019-05-22] MEDS: HUMALOG SUBQ SCH ×4 (06:36→21:58)
[2019-05-22] MEDS: ICAR-C PO SCH ×2 (08:27→22:03)
[2019-05-22] MEDS: KEPPRA PO SCH ×3 (08:28→22:03)
[2019-05-22] MEDS: FOLIC ACID PO SCH (08:28)
[2019-05-22] MEDS: NEURONTIN PO SCH ×2 (08:28→22:03)
--- NOTE | 2019-05-22 09:12 | PROGRESS NOTE ---
DATE: 05/22/2019 Mr. Hogan, who is a 69-year-old, -Cypriot gentleman, was admitted because of septic shock. He had an infected decubitus as well as a urinary tract infection with Klebsiella pneumoniae. He is on imipenem at the present time. He is on meropenem at the moment and we are continuing his regular medications. His medications include pantoprazole, meropenem, Keppra, hydrocodone, gabapentin, folic acid, atorvastatin, simethicone, and iron tablets. His current labs include hemoglobin of 8 g, hematocrit 25.1, WBC count is 7.63. Urinalysis revealed too numerous WBCs which has gone down to 20 to 40 WBCs. He is slowly improving. He has metastatic prostate carcinoma with vertebral metastatic lesions resulting into paraplegia. Overall prognosis is fair to poor. We will continue with the current management on him. cc: Ronan Vazquez MD MTDD
--- NOTE | 2019-05-22 10:44 | GASTROENTEROLOGY PROGRESS NOTE ---
DATE: 05/22/2019 SUBJECTIVE: Mr. Hogan is a 69-year-old male who is resting in bed. The patient mentioned feeling a little better today. He has denied any nausea, vomiting, or abdominal pain. As per the nursing staff, they have not noticed any bleeding episodes. The patient is currently on a mechanical soft diet and is able to tolerate his diet fairly well. He has denied having any bowel movements today. OBJECTIVE: Vital Signs: Temperature 97.8 degrees, pulse 82, respirations 16, blood pressure 102/59, oxygen saturation 99% on room air. The patient's weight is 246 pounds. BMI is 33.4 kg/m2. General: He is alert, oriented x3, and in no acute distress. HEENT: Pale conjunctivae. No icterus. PERRL. Neck: Supple. Lungs: Clear to auscultation. Cardiovascular: Regular rate and rhythm. Abdomen: Soft, nontender, nondistended. Active bowel sounds heard in all 4 quadrants. Extremities: No clubbing. No cyanosis. Generalized edema in the lower extremities. The patient has weakness in the lower and the upper extremities. Neurological: Alert and oriented x3, and paraplegic. LABS: WBCs of 7.63, RBCs 3.56, hemoglobin 8.6, hematocrit is 26.3, platelet count is 280,000. Sodium 136, potassium 3.7, chloride 105, carbon dioxide 19, anion gap is 12, BUN is 13, creatinine is 1.0, glucose 87. Calcium 8.6. Total bilirubin is 0.70. AST 10, ALT less than 5, alkaline phosphatase 911. IMPRESSION AND PLAN: 1. Unspecified anemia. 2. Folate deficiency anemia. 3. Positive fecal occult blood test. 4. Urinary tract infection. 5. Metastatic prostate cancer. 6. Stage IV sacral decubitus ulcers. PLAN: Mr. Hogan is a 69-year-old male, with a history of metastatic prostate cancer, which has metastasized to the spine. GI is following him for his anemia. His hemoglobin and hematocrit have started to trend upwards, today it is 8.3 and 26.3. The patient has not had any bleeding episodes. We will continue the patient with PPIs twice a day. For his anemia he is receiving iron twice a day and folic acid daily. We will continue to monitor his hemoglobin and hematocrit and provide conservative care to the patient. This plan was discussed with Dr. Hudson. Please call us for any further questions or concerns. Dictated by CAROL Boles for Kirby Hudson MD cc: Ronan Vazquez MD Physician Attestation I have seen and examined the patient. I have discussed and reviewed the note by Kanika MEDINA and agree with findings and plan as documented. He is not having any overt GI bleeding and without transfusion requirements as this time. Will defer endoscopic evaluation to outpatient. Please call with questions. MTDD
--- NOTE | 2019-05-22 13:33 | HEMO/ONC PROGRESS NOTE ---
DATE: 05/22/2019 CHIEF COMPLAINT: No new complaints. PHYSICAL EXAMINATION: Vital Signs: Temperature 98.2 degrees, blood pressure 110/71, heart rate 89, respirations 17, O2 saturation is 99% on room air. Cardiovascular: S1, S2. Abdomen: Nondistended. Chest: Respirations nonlabored. Extremities: There is 1+ bilateral lower extremity edema. LABORATORY DATA: Hemoglobin 8.0, hematocrit 25.1, white blood cell count 7.63, platelets 280,000. Sodium 136, potassium 3.7, chloride 105, CO2 is 19, BUN 13, creatinine 1.0, and glucose is 87. ASSESSMENT AND PLAN: 1. Metastatic prostate cancer stage IV, currently on Eligard and Xtandi, last seen in clinic on 03/27/2019. Due to hospitalizations, we will schedule a followup upon discharge. 2. Septic shock/healthcare-associated pneumonia, resolved. The patient is on antibiotics. 3. Urinary tract infection/wound infection, currently on antibiotics. 4. Paraplegia, known. 5. Anemia. Transfuse packed red blood cells if hemoglobin is less than 8.0 or in the setting of active bleeding. 6. We will follow along with you and make further recommendations pending outcomes. The above reflects the history, examination, assessment, and plan of Dr. Caceres. Dictated by CAROL Ruiz for Giuseppe Caceres MD cc: CAROL Ruiz MD Amit V. Vora, MD
--- NOTE | 2019-05-22 15:35 | Diag Imaging Result Doc PS360 ---
EXAM: CT THORAX W/O CONTRAST HISTORY: R/O mets TECHNIQUE: CT chest without intravenous contrast COMPARISON: 07/15/2010 FINDINGS: There is a moderate to large right-sided pleural effusion measuring 6.7 cm posteriorly and inferiorly and a moderate left pleural effusion measuring 4.5 cm. No cardiomegaly. No aortic aneurysm. Bilateral lower lobe atelectasis with infiltrates. No lung mass identified. Lower thoracic and lumbar spine bone destruction with rods. These were not present on the prior exam. IMPRESSION: Bilateral pleural effusions with lower lobe atelectasis and possibly underlying infiltrates. The pleural effusions are larger than on the recent abdomen pelvis CT. This exam was performed using automated exposure control, adjustment of mA or kV according to patient size, and/or use of iterative reconstruction technique. Electronically signed by Emmanuel Pak 05/22/2019 3:33 PM
[2019-05-22] MEDS: LIPITOR PO SCH (22:03)
[2019-05-23] MEDS: SODIUM CHLORIDE 0.9% INJ SCH (01:40)
[2019-05-23] MEDS: PROTONIX IV SCH ×3 (01:40→12:15)
[2019-05-23] MEDS: MERREM 1 GM in NS 50 ML IV SCH ×3 (04:13→20:16)
[2019-05-23] MEDS: HUMALOG SUBQ SCH ×4 (06:38→20:17)
[2019-05-23] MEDS: ICAR-C PO SCH ×2 (08:53→20:16)
[2019-05-23] MEDS: KEPPRA PO SCH ×3 (08:53→21:40)
[2019-05-23] MEDS: NEURONTIN PO SCH ×2 (08:53→20:16)
[2019-05-23] MEDS: FOLIC ACID PO SCH (08:53)
[2019-05-23] MEDS ORDERED: LASIX IV ONE (08:54)
--- NOTE | 2019-05-23 09:20 | PROGRESS NOTE ---
DATE: 05/23/2019 Mr. Hogan is slowly recovering. His lungs reveal bilateral pleural effusion. He has some poor air entry at the lung bases. We will give him some Lasix today, try to look at the response, and repeat the chest x-ray in the morning, then decide about further management. His hemoglobin is down to 8.3. It is still stable and does not have the criteria to give blood, even though he is weak. He probably will be benefitted by blood transfusion. cc: Ronan Vazquez MD
--- NOTE | 2019-05-23 14:10 | GASTROENTEROLOGY PROGRESS NOTE ---
DATE: 05/23/2019 SUBJECTIVE: Mr. Hogan is a 69-year-old male who is resting in bed. The patient mentioned feeling much better today. He denies any nausea, vomiting or abdominal pain. He has complained of not having any appetite and did not eat much of his breakfast. The patient is denying having any bowel movements today. OBJECTIVE: Vitals: Temperature 97.7, pulse 102, respirations 17, blood pressure 100/70, oxygen saturation 100% on room air. The patient's weight is 246 pounds. BMI is 33.4 kg per m2. General: He is alert and oriented x3 and in no acute distress. HEENT: Pale conjunctivae. No icterus. PERRL. Neck: Supple. Lungs: Clear to auscultation. Cardiovascular: The patient is tachycardic. Abdomen: Soft. Nontender. Nondistended. Active bowel sounds heard in all 4 quadrants. Extremities: No clubbing. No cyanosis. Generalized edema in the lower extremities, and weakness in the lower and upper extremities. The patient is paraplegic. Neurologic: Alert and oriented x3. LABORATORY DATA: Hemoglobin is 8.3, hematocrit is 26.3. Sodium 136, potassium 3.7, chloride 105, carbon dioxide 19, anion gap 2, BUN 13, creatinine 1.0, glucose 87. Calcium 8.6. Total bilirubin is 0.70. AST 10, ALT less than 5. Alkaline phosphatase 911. Albumin is 1.9. PSA diagnostic is 195. IMAGING: Chest CT has shown bilateral pleural effusions with lower lobe atelectasis and possibly underlying infiltrate. The pleural effusions are larger than on the recent abdominal and pelvic CT. IMPRESSION AND PLAN: 1. Anemia. 2. Urinary tract infection. 3. Metastatic prostate cancer. 4. Stage IV decubitus ulcer. 5. Positive Hemoccult. PLAN: Mr. Hogan is a 69-year-old male, with a history of metastatic prostate cancer, which has metastasized to the spine. GI is following him for his anemia. His hemoglobin and hematocrit today is 8.3 and 26.6. It has trended upwards. The patient has denied any further bleeding episodes. We will continue the patient with PPIs twice a day. The patient is receiving iron tablet twice a day and folic acid once daily for his anemia. We can follow him up as an patient once he is discharged from the hospital, in 4 weeks, and plan to do an EGD as an outpatient. We will continue to monitor the patient and follow the plan of care per PCP. This plan was discussed with Dr. Santana. Please call us for any further questions or concerns. Dictated by CAROL Boles for Ronan Vazquez MD cc: Ronan Vazquez MD [facility]
--- NOTE | 2019-05-23 15:47 | HEMO/ONC CONSULTATION ---
DATE: 05/20/2019 ADMITTING PHYSICIAN: Dr. Vaughn. REQUESTING PHYSICIAN: Dr. Vaughn. We appreciate this consult. CHIEF COMPLAINT: Prostate cancer. HISTORY OF PRESENT ILLNESS: Mr. Hogan is a pleasant 69-year-old male well known to Dr. Caceres with a history of metastatic prostate cancer stage IV. The patient has been on Eligard and Xtandi, but has not recently been receiving treatment as he has been hospitalized and has been in rehabilitation. The patient was last seen on 03/27 in the clinic. He presented to [facility] Emergency Department as he was found to be somewhat confused. Additionally, he had been complaining of left-sided flank pain for approximately 3 days. Upon presentation to [facility], the patient was found to be profoundly anemic with a hematocrit of 19.4. Urinalysis revealed a urinary tract infection. Additionally, the patient was found to be hypotensive and was placed on vasopressors, and admitted to intensive care unit. We are consulted as the patient is well known to us. PAST MEDICAL HISTORY: 1. Metastatic prostate cancer. 2. Spinal fracture. 3. Diabetes mellitus type 2. 4. Hypertension. 5. Obstructive sleep apnea. 6. Paraplegia. 7. Chronic indwelling Mahajan catheter. PAST SURGICAL HISTORY: 1. Left nephrectomy. 2. Hip surgery. 3. Back surgery. SOCIAL HISTORY: The patient has no history of drinking alcohol. No history of tobacco abuse. No history of illicit drug use. MEDICATIONS ON ADMISSION: 1. Atorvastatin. 2. Xtandi. 3. Amlodipine. 4. Gabapentin. 5. Januvia. 6. Fluconazole. 7. Bactrim DS. 8. Acetaminophen. 9. Hydrocodone/acetaminophen. 10. Keppra. ALLERGIES: Levaquin. REVIEW OF SYSTEMS: A 14 point review of systems was obtained, and is negative except for mentioned in HPI. PHYSICAL EXAMINATION: General: Mr. Hogan is a pleasant 69-year-old male lying supine in bed in no immediate distress. Vital Signs: Temperature 98.1, blood pressure 96/68, heart rate 91, respirations 21, and O2 saturation is 100% on room air. HEENT: Normocephalic, atraumatic. Mucous membranes are pale and moist. Sclerae anicteric. Extraocular movements are intact. Lungs: Respirations are nonlabored. Abdomen: Nondistended. CV: S1 and S2 is heard. Extremities: 1+ bilateral lower extremity edema. Dermatologic: No rashes, bruises, or lesions. Neurologic: The patient does have bilateral lower extremity paralysis. LABORATORY DATA: Hemoglobin 8.4, hematocrit 26.5, white blood cell count 10.42, and platelets 242,000. Sodium 136, potassium 4.1, chloride 107, CO2 17, BUN 12, creatinine 1.1, and glucose 93. Bilirubin 0.88, alkaline phosphatase 948, AST 10, and ALT less than 5. Wound culture from decubitus buttock reveals Gram negative rods. Urine culture reveals Klebsiella pneumoniae. IMAGING STUDIES: Chest x-ray reveals worsening right pleural effusion and small left effusion with bibasilar atelectasis. ASSESSMENT AND PLAN: 1. Metastatic prostate cancer, stage IV on Eligard and Xtandi. Last seen in clinic on 03/27/2019 due to multiple hospitalizations and rehabilitation. We will check a PSA at this time. We will return the patient to treatment as soon as possible, and schedule followup in clinic upon discharge. 2. Septic shock/HCAP. The patient is currently on vasopressors, IV fluids and antibiotics. He is improving. Blood pressure 96/68. 3. Wound infection/urinary tract infection. Currently on antibiotics. 4. Paraplegia known. 5. Anemia. Hemoglobin is currently 8.4. Would transfuse packed red blood cells for hemoglobin of less than 8.0 or for active bleeding. 6. We will follow along with you, and make further recommendations pending outcomes. The above reflects the history, exam, assessment, and plan of Dr. Caceres. Dictated by CAROL Ruiz for Giuseppe Caceres MD cc: CAROL Ruiz MD Amit V. Vora, MD
--- NOTE | 2019-05-23 15:48 | Diag Imaging Result Doc PS360 ---
EXAM: BONE SCAN, TOTAL BODY 05/22/2019 HISTORY: R/O mets TECHNIQUE: Bone scan, 26.9 mCi of technetium 99m MDP COMMENT: There is intense increased activity in the lower thoracic and upper lumbar spine as well as the adjacent ribs. This is much worse than on 08/28/2015. Severe lytic changes seen on the CT examination of 05/22/2019 in this area. There is also been previous internal fixation with rods and pedicle screws there is minimally increased activity in the first and/or second toe on the left. IMPRESSION: Extensive metastatic disease in the lower thoracic and upper lumbar spine as well as the medial portions of multiple lower ribs. Electronically signed by Choco Gayle 05/23/2019 3:46 PM
--- NOTE | 2019-05-23 16:23 | HEMO/ONC PROGRESS NOTE ---
DATE: 05/23/2019 CHIEF COMPLAINT: No new complaints. PHYSICAL EXAMINATION: Vital Signs: Temperature 97.7 degrees, blood pressure 94/57, heart rate 99, respirations 16, and O2 saturation 100% on room air. HEENT: Normocephalic, atraumatic. Mucous membranes pale and moist. Sclerae is anicteric. Extraocular movements are intact. Lungs: Respirations nonlabored. Abdomen: Nondistended. Extremities: No clubbing or cyanosis. He does have 1+ bilateral lower extremity edema. Dermatologic: No rashes, bruises or lesions. Neurologic: The patient is awake, alert, and oriented x3. He has no focal motor deficit. He does have bilateral lower extremity paralysis. LABORATORY DATA: The patient has no laboratory data from today. ASSESSMENT AND PLAN: 1. Metastatic prostate cancer stage IV. Bone scan is currently pending. The patient will be returned to [facility] and Xtandi as soon as possible. The patient's is obtaining a prescription for Xtandi. 2. Septic shock, healthcare associated pneumonia, resolved. The patient remains on antibiotics at this time. 3. Urinary tract infection. Wound infection. Again, the patient is currently on antibiotics. 4. Paraplegia. Known. 5. Anemia. Would transfuse packed red blood cells if hemoglobin drops below 8.0 or in the setting of active bleeding. 6. We will follow along with you, and make further recommendations pending outcomes. The above reflects the history, exam, assessment, and plan of Dr. Caceres. Dictated by CAROL Ruiz for Giuseppe Caceres MD cc: CAROL Ruiz MD Amit V. Vora, MD
[2019-05-23] MEDS: LIPITOR PO SCH (20:16)
[2019-05-24] MEDS: PROTONIX IV SCH ×2 (00:08→17:04)
[2019-05-24] MEDS: SODIUM CHLORIDE 0.9% INJ SCH (00:08)
[2019-05-24] MEDS: MERREM 1 GM in NS 50 ML IV SCH ×3 (04:46→20:12)
[2019-05-24 06:03] LABS: BASO# 0.02 X1000 (0.0-0.2); BASO% 0.2 % (0.0-0.8); EOS# 0.32 X1000 (0.0-0.7); EOS% 3.9 % (0.0-10.0); HEMATOCRIT 24.7 % (42.0-52.0); HEMOGLOBIN 7.7 g/dL (14.0-18.0); LYMPH# 1.01 X1000 (1.2-3.4); LYMPH% 12.3 % (20.5-51.1); MCH 22.7 PG (27-31); MCHC 31.2 g/dL (33-37); MCV 72.9 FL (81-99); MONO# 1.14 X1000 (0.11-0.59); MONO% 13.9 % (1.7-9.3); MPV 8.4 FL (7.4-10.4); NEUT# 5.72 X1000 (1.4-6.5); NEUT% 69.7 % (42.2-75.2); PLT 198 X1000 (130-400); RBC 3.39 XMIL (4.7-6.1); RDW 27.4 % (11.5-14.5); WBC 8.21 X1000 (4.8-10.8)
[2019-05-24] MEDS: HUMALOG SUBQ SCH ×4 (06:11→20:32)
[2019-05-24 06:21] LABS: AGAP 10; BUN 15 mg/dL (8-22); CALCIUM 8.5 mg/dL (8.8-10.2); CHLORIDE 104 mmol/L (98-107); COSMO 273; ESTIMATED GFR > 60; GLUCOSE 94 mg/dL (70-104); POTASSIUM 3.8 mmol/L (3.5-5.1); SODIUM 136 mmol/L (136-145); TCO2 22 mmol/L (25-35)
--- NOTE | 2019-05-24 07:13 | Diag Imaging Result Doc PS360 ---
CHEST-PORTABLE - 05/24/2019 INDICATION: pleural effusion COMPARISON: 05/20/2019 FINDINGS: Stable right chest port in good position. There has been significant improvement in the bilateral pleural effusions. There is a trace residual right pleural effusion. There has been improvement in the central infiltrates/pulmonary edema. Heart size is top normal. No dense infiltrates. IMPRESSION: Significant improvement from prior. Electronically signed by Ricky Martin 05/24/2019 7:11 AM
[2019-05-24] MEDS: FOLIC ACID PO SCH (08:58)
[2019-05-24] MEDS: ICAR-C PO SCH ×2 (08:58→20:12)
[2019-05-24] MEDS: DIFLUCAN PO SCH (09:00)
[2019-05-24] MEDS: KEPPRA PO SCH ×2 (09:00→22:17)
[2019-05-24] MEDS: NEURONTIN PO SCH ×2 (09:05→20:12)
[2019-05-24] MEDS ORDERED: LASIX IV ONE (11:03)
--- NOTE | 2019-05-24 11:22 | PROGRESS NOTE ---
DATE: 05/24/2019 Mr. Hogan is doing better. His chest x-ray shows significant improvement in the pleural effusion. His lungs sound much better. Heart sounds are normal. He has a large decubitus. The blood cultures have been negative. He has urinary tract infection for which he is being treated with meropenem. We are waiting for an LTAC facility in [place] to see if we can transfer him. We are working on it. In order to transfer him, we have to have negative test for COVID-19, which we had done. cc: Ronan Vazquez MD
--- NOTE | 2019-05-24 11:37 | GASTROENTEROLOGY PROGRESS NOTE ---
DATE: 05/23/2019 SUBJECTIVE: Mr. Hogan is a 69-year-old male who is resting in better. The patient mentioned feeling much better today. He denies any nausea, vomiting or abdominal pain. He has complained of not having any appetite and did not eat much of his breakfast. The patient is denying having any bowel movements today. OBJECTIVE: Vitals: Temperature 97.7, pulse 102, respirations 17, blood pressure 100/70, oxygen saturation 100% on room air. The patient's weight is 246 pounds. BMI is 33.4 kg per m2. General: He is alert and oriented x3 and in no acute distress. HEENT: Pale conjunctivae. No icterus. PERRL. Neck: Supple. Lungs: Clear to auscultation. Cardiovascular: The patient is tachycardic. Abdomen: Soft. Nontender. Nondistended. Active bowel sounds heard in all 4 quadrants. Extremities: No clubbing. No cyanosis. Generalized edema in the lower extremities, and weakness in the lower and upper extremities. The patient is paraplegic. Neurologic: Alert and oriented x3. LABORATORY DATA: Hemoglobin is 8.3, hematocrit is 26.3. Sodium 136, potassium 3.7, chloride 105, carbon dioxide 19, anion gap 2, BUN 13, creatinine 1.0, glucose 87. Calcium 8.6. Total bilirubin is 0.70. AST 10, ALT less than 5. Alkaline phosphatase 911. Albumin is 1.9. PSA diagnostic is 195. IMAGING: Chest CT has shown bilateral pleural effusions with lower lobe atelectasis and possibly underlying infiltrate. The pleural effusions are larger than on the recent abdominal and pelvic CT. IMPRESSION AND PLAN: 1. Anemia. 2. Urinary tract infection. 3. Metastatic prostate cancer. 4. Stage IV decubitus ulcer. 5. Positive Hemoccult. PLAN: Mr. Hogan is a 69-year-old male, with a history of metastatic prostate cancer, which is metastasized to the spine. GI is following him for his anemia. His hemoglobin and hematocrit today is 8.3 and 26.6. It has trended upwards. The patient has denied any further bleeding episodes. We will continue the patient with PPIs twice a day. The patient is receiving iron tablet twice a day and folic acid once daily. We can follow him up as an patient once he is discharged from the hospital, in 4 weeks, and plan to do an EGD as an outpatient. We will continue to monitor the patient and follow the plan of care per PCP. This plan was discussed with Dr. Santana. Please call us for any further questions or concerns. Dictated by CAROL Boles for Brandon Santana MD -6 cc: MD Ronan Garcia MD I have seen and examined the patient myself and I agree with the above plan of care. Please call us with any further questions or concerns. MTDD
--- NOTE | 2019-05-24 13:47 | GASTROENTEROLOGY PROGRESS NOTE ---
DATE: 05/24/2019 SUBJECTIVE: Mr. Hogan is a 69-year-old male resting in bed. The patient denies any nausea, vomiting, abdominal pain. He has been feeling better today. He also was able to eat his breakfast. The patient has not had a bowel movement today. OBJECTIVE: Vital Signs: Temperature 98.6 degrees, pulse 86, respirations 17, blood pressure 94/60, oxygen saturation 99 percent on room air. The patient's weight is 246 pounds. BMI is 33.4 kg/m2. General: He is alert, oriented x3, and in no acute distress. HEENT: Pale conjunctivae. No icterus. PERRL. Neck: Supple. Lungs: Clear to auscultation. Cardiovascular: Regular rate and rhythm. Abdomen: Soft, nontender, nondistended. Active bowel sounds heard in all 4 quadrants. Extremities: No clubbing, no cyanosis, no edema. Generalized edema in the lower extremities and weakness in the lower and upper extremities. The patient is paraplegic. Neurologic: Alert, oriented x3. LABS: WBC is 8.21, RBC 3.39, hemoglobin 7.7, hematocrit is 24.7, platelet count is 198. Sodium 136, potassium 3.8, chloride 105, carbon dioxide 22, anion gap 10. BUN 15, creatinine 1.0, glucose 94, calcium 8.5. IMAGING: Chest x-ray showed significant improvement from the prior. IMPRESSION AND PLAN: 1. Anemia 2. UTI 3. Metastatic prostate cancer 4. Stage IV decubitus ulcer 5.Positive hemoccult PLAN: Mr. Hogan is a 69-year-old male with a history of metastatic prostate cancer which has metastasized to the spine. GI is following him for his anemia. The patient has denied noticing any bleeding episodes. We will continue him on PPIs twice a day. He is also on iron and folic acid for his anemia. Plans per PCP is to send the patient to the LTAC. We will follow him up as an outpatient in 4 weeks and plan an EGD as an outpatient. For now, we will sign off. Please call us for any further questions or concerns. This plan was discussed with Dr. Hudson. Dictated by CAROL Boles for Kirby Hudson MD cc: Ronan Vazquez MD Physician Attestation I have seen and examined the patient. I have discussed and reviewed the note by Kanika MEDINA and agree with findings and plan as documented. He is not having any overt GI bleeding and without transfusion requirements as this time. Will defer endoscopic evaluation to outpatient. Please call with questions. ABRAHAM
[2019-05-24] MEDS: LIPITOR PO SCH (20:12)
[2019-05-25] MEDS: MERREM 1 GM in NS 50 ML IV SCH ×3 (04:48→20:11)
[2019-05-25] MEDS: SODIUM CHLORIDE 0.9% INJ SCH ×2 (06:32→18:10)
[2019-05-25] MEDS: PROTONIX IV SCH ×2 (06:32→18:09)
[2019-05-25 06:33] LABS: BASO# 0.01 X1000 (0.0-0.2); BASO% 0.1 % (0.0-0.8); EOS# 0.36 X1000 (0.0-0.7); EOS% 4.2 % (0.0-10.0); HEMATOCRIT 25.4 % (42.0-52.0); HEMOGLOBIN 7.9 g/dL (14.0-18.0); LYMPH% 12.8 % (20.5-51.1); MCH 22.7 PG (27-31); MCHC 31.1 g/dL (33-37); MONO# 1.12 X1000 (0.11-0.59); MPV 9.1 FL (7.4-10.4); NEUT# 6.01 X1000 (1.4-6.5); NEUT% 69.9 % (42.2-75.2); PLT 220 X1000 (130-400); RBC 3.48 XMIL (4.7-6.1); RDW 27.9 % (11.5-14.5)
[2019-05-25] MEDS: HUMALOG SUBQ SCH ×4 (06:33→20:12)
[2019-05-25 07:11] LABS: AGAP 12; BUN 16 mg/dL (8-22); CALCIUM 8.5 mg/dL (8.8-10.2); CHLORIDE 104 mmol/L (98-107); COSMO 278; ESTIMATED GFR > 60; GLUCOSE 84 mg/dL (70-104); POTASSIUM 4.3 mmol/L (3.5-5.1); SODIUM 139 mmol/L (136-145); TCO2 23 mmol/L (25-35)
[2019-05-25] MEDS: NEURONTIN PO SCH ×2 (09:54→20:11)
[2019-05-25] MEDS: FOLIC ACID PO SCH (09:54)
[2019-05-25] MEDS: KEPPRA PO SCH ×2 (09:54→20:11)
[2019-05-25] MEDS: ICAR-C PO SCH ×2 (09:54→20:11)
--- NOTE | 2019-05-25 12:02 | PROGRESS NOTE ---
DATE: 05/25/2019 SUBJECTIVE: A 69-year-old male patient of Dr. Vazquez admitted to the hospital for UTI due to ESBL Escherichia coli, paraplegia due to prostate cancer. He also has a GI bleed. Apparently, he did receive 3 units of packed RBCs. He is not offering any complaints. He is bedridden. PAST MEDICAL HISTORY: Reviewed. PAST SURGICAL HISTORY: Reviewed. MEDICINES: Reviewed. ALLERGIES: Levofloxacin. PHYSICAL EXAMINATION: He is not in distress. He is on a ROHO mattress. No pallor noted. Clear to auscultation. Heart sounds are regular. Belly is soft, obese. Mahajan catheter was placed. He is paraplegic, both legs. INVESTIGATIONS: CBC: White cell count 8.6, hematocrit 25, platelets 220. Sodium 139, potassium 4.3, chloride 104. BUN 16, creatinine 1.0, calcium 8.5. Coronavirus undetected. Urine cultures reported Klebsiella pneumoniae ESBL positive, which is buttock ulcer Klebsiella pneumonia. ASSESSMENT: 1. Extended spectrum beta lactamase Klebsiella pneumonia. 2. Anemia heme-positive stool, status post 3 units of packed red blood cells. 3. Paraplegia due to metastatic prostate cancer. 4. Type 2 diabetes. 5. Hypertension. 6. Sleep apnea. 7. Status post left nephrectomy. 8. Multiple hip surgery and back surgery. PLAN OF CARE: 1. As for GI, they are not going to do an aggressive endoscopy workup. Currently no signs of active bleeding. 2. Patient has been on meropenem IV q. 8 hours for ESBL infection. 3. Hyperlipidemia on Lipitor. 4. Metastatic prostate cancer under the care of Dr. Caceres. He was on IV Eligard and Xtandi, last dose 03/27/2019. DISPOSITION: Planning to go to LT[facility]. Apparently patient is refusing. We will defer that opinion to Dr. Vazquez on Monday. He wants to go to [facility]. Continue to follow up. cc: MD Ronan Booker MD
[2019-05-25] MEDS: LIPITOR PO SCH (20:11)
[2019-05-26] MEDS: SODIUM CHLORIDE 0.9% INJ SCH (04:57)
[2019-05-26] MEDS: PROTONIX IV SCH ×3 (04:57→17:41)
[2019-05-26] MEDS: MERREM 1 GM in NS 50 ML IV SCH ×3 (04:57→20:38)
[2019-05-26] MEDS: HUMALOG SUBQ SCH ×4 (06:29→23:08)
[2019-05-26] MEDS: KEPPRA PO SCH ×2 (09:09→20:38)
[2019-05-26] MEDS: NEURONTIN PO SCH ×2 (09:09→20:38)
[2019-05-26] MEDS: ICAR-C PO SCH ×2 (09:09→20:38)
[2019-05-26] MEDS: FOLIC ACID PO SCH (09:09)
--- NOTE | 2019-05-26 13:22 | PROGRESS NOTE ---
DATE: 05/26/2019 SUBJECTIVE: The patient is sleeping and no complaints were given. Apparently, the disposition is pending. REVIEW OF SYSTEMS: None reported. PHYSICAL EXAMINATION: Vital Signs: Temperature is 97 degrees, pulse is 77, blood pressure is 95/49, 97% on room air. General: Paraplegic. No change. LABORATORY DATA: Labs were not drawn. Coronavirus not detected. PSA was 195. ASSESSMENT AND PLAN: 1. Extended spectrum beta lactamase Klebsiella urinary tract infection. 2. Gastrointestinal bleeding, status post 3 units of packed RBC. 3. Paraplegic due to metastatic prostate cancer. PSA 195, under the care of Dr. Caceres with IV Eligard and Xtandi. 4. Type 2 diabetes. 5. Hypertension. 6. Sleep apnea. 7. Status post left nephrectomy. 8. Multiple hip surgeries and back surgery. We will check the labs in the morning and plan is either LTAC or [place]. Continue present treatment. Dr. Vazquez is going to follow up. LEVEL OF DOCUMENTATION: 25 minutes. cc: MD Ronan Booker MD
[2019-05-26] MEDS: LIPITOR PO SCH (20:38)
[2019-05-27] MEDS: MERREM 1 GM in NS 50 ML IV SCH ×2 (04:07→11:56)
[2019-05-27] MEDS: PROTONIX IV SCH ×2 (05:40→18:06)
[2019-05-27] MEDS: SODIUM CHLORIDE 0.9% INJ SCH (05:42)
[2019-05-27] MEDS: HUMALOG SUBQ SCH ×3 (06:09→16:02)
[2019-05-27 06:24] LABS: BASO# 0.05 X1000 (0.0-0.2); BASO% 0.6 % (0.0-0.8); EOS% 3.5 % (0.0-10.0); HEMATOCRIT 25.4 % (42.0-52.0); HEMOGLOBIN 7.8 g/dL (14.0-18.0); IMM GRAN# 0.08 X1000 (0.0-0.04); IMM GRAN% 0.9 % (0.0-0.5); LYMPH# 1.27 X1000 (1.2-3.4); LYMPH% 14.8 % (20.5-51.1); MCH 22.3 PG (27-31); MCHC 30.7 g/dL (33-37); MCV 72.8 FL (81-99); MONO# 0.84 X1000 (0.11-0.59); MONO% 9.8 % (1.7-9.3); NEUT# 6.03 X1000 (1.4-6.5); NEUT% 70.4 % (42.2-75.2); PLT 311 X1000 (130-400); RBC 3.49 XMIL (4.7-6.1); WBC 8.57 X1000 (4.8-10.8)
[2019-05-27 06:56] LABS: AGAP 10; BUN 20 mg/dL (8-22); CALCIUM 9.2 mg/dL (8.8-10.2); CHLORIDE 103 mmol/L (98-107); COSMO 276; CREATININE 1.1 mg/dL (0.7-1.2); ESTIMATED GFR > 60; GLUCOSE 86 mg/dL (70-104); POTASSIUM 4.4 mmol/L (3.5-5.1); SODIUM 137 mmol/L (136-145); TCO2 24 mmol/L (25-35)
[2019-05-27] MEDS: ICAR-C PO SCH (08:12)
[2019-05-27] MEDS: NEURONTIN PO SCH (08:12)
[2019-05-27] MEDS: FOLIC ACID PO SCH (08:12)
[2019-05-27] MEDS: KEPPRA PO SCH (08:12)
--- NOTE | 2019-05-27 09:22 | PROGRESS NOTE ---
DATE: 05/27/2019 Mr. Hogan is doing fairly well. He is stable. He is still anemic. Hemoglobin is 7.8. However, there is no active bleeding, and I personally do not feel like he needs any transfusion at the present time. He cannot be discharged to LTAC on account of insurance problems. He is now going to decide whether he wants go home or wants to go for rehab at [facility]. We will decide about the discharge. If he wants to go to [facility], will have to do the COVID-19 test again. cc: Ronan Vazquez MD
--- NOTE | 2019-05-27 15:31 | HEMO/ONC PROGRESS NOTE ---
DATE: 05/27/2019 CHIEF COMPLAINT: The patient denies any new complaints. VITAL SIGNS: Temperature 97.4 degrees, blood pressure 96/53, heart rate 84, respirations 17, O2 saturation 98% on room air. PHYSICAL EXAMINATION: CV: S1, S2. Respiratory: The patient is in no respiratory distress. Abdomen: Nondistended. Extremities: The patient has 1+ bilateral lower extremity edema. LABORATORY DATA: Hemoglobin 7.8, hematocrit 25.4, white blood cell count 8.57, platelets 311,000. Sodium 137, potassium 4.4, chloride 103, CO2 is 24, BUN 20, creatinine 1.1, and glucose is 86. ASSESSMENT AND PLAN: 1. Metastatic prostate cancer, stage IV. Bone scan revealed extensive metastatic disease in the lower thoracic and upper lumbar spine as well as the medial portions of the multiple lower ribs. The patient will receive Eligard prior to discharge today. He will continue on Xtandi as an outpatient. The patient's is obtaining a refill for his prescription. 2. Septic shock and healthcare-associated pneumonia, both resolved at this time. 3. Urinary tract infection and wound infection. The patient continues on antibiotics. 4. Paraplegia, known. 5. Anemia. Would recommend transfusion of packed red blood cells if hemoglobin drops below 8.0 or for active bleeding. 6. The patient will be scheduled for followup in clinic as an outpatient. Dictated by CAROL Ruiz for Giuseppe Caceres MD cc: CAROL Ruiz MD Amit V. Vora, MD
[2019-05-27 15:35] VITALS: BP 109/53
[2019-05-27] MEDS ORDERED: NON-FORMULARY INJ SUBQ ONE (16:00)
--- NOTE | 2019-05-28 12:16 | DISCHARGE SUMMARY ---
ADMISSION DATE: 05/17/2019 DISCHARGE DATE: 05/27/2019 HISTORY OF PRESENT ILLNESS: Mr. Hogan, who is a 69-year-old, gentleman, was admitted with septic shock related to hospital-acquired pneumonia as well as a urinary tract infection. LABORATORY DATA: In the hospital, a CT scan of the abdomen and pelvis had revealed mixed lytic and sclerotic osseous metastatic disease, particularly in the lower thoracic and upper lumbar area. Bilateral pleural effusion with atelectasis in the left and both lower lobes. Sacral decubitus ulcer with possible sacral osteomyelitis. Ventral hernia without evidence of obstruction. An x-ray of the left foot revealed patchy osteoporosis which could be due to sympathetic reflex, sympathetic osteodystrophy. Erosions of the first metatarsophalangeal joint were noted. Repeat chest x-ray revealed worsening of the interstitial pulmonary edema. GI consult for anemia was ordered. Other lab data revealed anemia. Hemoglobin initially when he came in, it was 5.8. It came up around 8 g. INR was 1.18. Electrolytes are normal. BUN and creatinine were normal. Urinalysis revealed too numerous WBCs and RBCs. Urine culture was positive for Klebsiella. Coronavirus test was negative. COURSE IN THE HOSPITAL: He was treated with IV antibiotics. IV fluids were given. His chest x- ray continued to improve with IV Lasix. He was given IV meropenem which helped him significantly. Initially was seen by the hospitalist. Later on, I took care of him. I had made arrangements for [facility] in [place]. However, the patient refused. He wanted to go to [facility]. However, the [facility] was not taking any new rehab patients on account of the Covid-19 crisis. Finally, he was discharged home with home health care. No new prescriptions were given. FINAL DIAGNOSES: 1. Severe anemia, possibly related to the metastatic cancer. 2. Acute urinary tract infection. 3. Septic shock. 4. Prostate cancer with metastatic disease to the dorsal and lumbar vertebrae. 5. Hypertension. 6. Diabetes. 7. Obesity. FOLLOWUP: The patient will be seen by me later on as an outpatient. cc: Ronan Vazquez MD
== END 2019-05-27 18:26 | disposition home health service (06) | DRG 871 ==
LOC: ED 01:13 → SUATTDRO 06:53 → ICU 06:53 → 2N 05-21 11:35
PROVIDERS: ADMIT Internal Medicine; ATTEND Internal Medicine